=== PATIENT | female | born 1980 | race Caucasian/White ===

== ENCOUNTER → 2020-08-24 09:05 | Outpatient (BNVA) | payer OTHER, SELFPAY | PROVIDERS: PCP Physician Assistant; Visit Provider Internal Medicine Pulmonary Disease | DX: R91.8 Other nonspecific abnormal finding of lung field (principal); J45.20 Mild intermittent asthma, uncomplicated; Z79.899 Other long term (current) drug therapy; Z23 Encounter for immunization | CPT/HCPCS: 90686; 99202 ==

== ENCOUNTER 2020-09-03 12:28 | Outpatient (REF) | payer OTHER, SELFPAY | END 2020-09-03 12:29 | disposition home or self-care (01) | LOC: HO.LAB 12:28 | PROVIDERS: Visit Provider Internal Medicine | DX: Z20.828 Contact with and (suspected) exposure to other viral communicable diseases (principal) | CPT/HCPCS: C9803; U0003 ==

== ENCOUNTER 2020-09-14 08:05 | Outpatient (REF) | payer OTHER, SELFPAY ==
--- NOTE | 2020-09-14 08:11 | CT_ITS ---
EXAMINATION: CT CHEST WITHOUT CONTRAST CLINICAL INFORMATION: Nonspecific abnormal finding of lung field COMPARISON: Chest and left rib x-ray September 2018 TECHNIQUE: Multidetector volumetric CT imaging of the chest was done. Axial MIP volume rendering provided. Sagittal and coronal reformatted images were obtained. This CT examination was performed using dose optimization techniques as appropriate, variously including the following: *Automated exposure control *Adjustment of mA and/or kV according to patient size (this includes techniques or standardized protocols for targeted exams where dose is matched to indication/reason for exam; i.e. extremities or head) *Use of iterative reconstruction technique DLP: 187 mGy-cm FINDINGS: FIELD RADIO OPERATOR: Unremarkable LUNGS: There is a 3 mm calcified left upper lobe nodule axial image 151 series 5. There is a 2 mm peripheral or subpleural right upper lobe nodule adjacent to the minor fissure axial image 303 series 5 probably representing a subpleural lymph node. The lungs are otherwise clear. No evidence of emphysema, interstitial lung disease or bronchiectasis is seen. There is no endobronchial or endotracheal lesion. MEDIASTINUM: The mediastinum is normal. PLEURA: There is no pleural effusion. No pleural mass or thickening. AXILLA: No lymphadenopathy. UPPER ABDOMEN: Unremarkable. OSSEOUS STRUCTURES: There are mild degenerative changes of the spine. CT/CT chest wo con IMPRESSION: Small pulmonary nodules.
--- NOTE | 2020-09-14 17:38 | PFT_ITS ---
FLOWS: FEV1 of 82% of predicted at 2.69 L. FVC 78% of predicted at 3.09 L. FEV1 to FVC ratio of 0.87. No bronchodilator response. LUNG VOLUMES: Total lung capacity 74% of predicted at 4.11 L. Residual volume 64% of predicted at 1.15 L. Slow vital capacity 79% of predicted at 2.95 L. Expiratory reserve volume 40% of predicted at 0.53 L. Diffusion capacity is normal. IMPRESSION: Mild restrictive ventilatory defect with no bronchodilator response. Decreased expiratory reserve volume suggests extrathoracic restriction likely secondary to abdominal obesity. MD BERTHA Trammell/MODL / [id number]
== END 2020-09-14 08:06 | disposition home or self-care (01) ==
LOC: HO.CT 08:05
PROVIDERS: PCP Physician Assistant; Visit Provider Internal Medicine Pulmonary Disease
DX: J45.909 Unspecified asthma, uncomplicated (principal); R91.8 Other nonspecific abnormal finding of lung field
CPT/HCPCS: 71250; 94060; 94727; 94729

== ENCOUNTER → 2020-09-24 09:03 | Outpatient (BNVA) | payer OTHER, SELFPAY | PROVIDERS: PCP Physician Assistant; Referring Provider Physician Assistant; Visit Provider Internal Medicine Pulmonary Disease | DX: J45.909 Unspecified asthma, uncomplicated (principal); R91.8 Other nonspecific abnormal finding of lung field | CPT/HCPCS: 99212 ==

== ENCOUNTER 2020-11-18 09:49 | Outpatient (REF) | payer OTHER, SELFPAY ==
[2020-11-18 10:22] LABS: Hematocrit 35.1 % (37-47); Hemoglobin 11.7 g/dl (12.0-16.0); Mean Corpuscular HGB Conc 33.3 g/dl (31.0-35.0); Mean Corpuscular Hemoglobin 29.4 pg (27.0-33.0); Mean Corpuscular Volume 88.2 fL (80-98); Mean Platelet Volume 10.1 fL (9.4-12.3); Platelet Count 256 X10*3/uL (160-400); Red Blood Count 3.98 X10*6/uL (4.20-5.50); Red Cell Distribution Width 12.9 % (11.0-16.0); White Blood Count 7.1 X10*3/uL (4.8-10.8)
[2020-11-18 10:34] LABS: Estimated Average Glucose 105 mg/dL; Hemoglobin A1c % 5.3 %
[2020-11-18 10:52] LABS: Alanine Aminotransferase 17 U/L (0-31); Albumin Level 4.1 g/dL (3.5-5.0); Alkaline Phosphatase 81 U/L (39-117); Anion Gap 10 (12-20); Aspartate Amino Transferase 18 U/L (5-31); Bilirubin Total 0.5 mg/dL (0.0-1.0); Blood Urea Nitrogen 11 mg/dL (9-16); Calcium 9.5 mg/dL (8.4-10.2); Carbon Dioxide 28 mmol/L (22-29); Chloride 105 mmol/L (96-108); Cholesterol 138 mg/dL; Estimated Glomerular Filt Rate > 60; Glucose Fasting 102 mg/dL (60-99); HDL Cholesterol 67 mg/dL; LDL Cholesterol Calculated 60 mg/dl; Potassium 4.1 mmol/l (3.3-5.1); Sodium 139 mmol/L (135-145); Total Protein 7.1 g/dL (6.5-8.0); Triglycerides 59 mg/dL
[2020-11-18 11:05] LABS: TSH reflex Free T4 1.64 mIU/mL (0.32-4.0)
== END 2020-11-18 09:50 | disposition home or self-care (01) ==
LOC: HO.LAB 09:49
PROVIDERS: PCP Physician Assistant; Visit Provider Physician Assistant
DX: I10 Essential (primary) hypertension (principal); E66.01 Morbid (severe) obesity due to excess calories; Z68.41 Body mass index [BMI] 40.0-44.9, adult; Z13.1 Encounter for screening for diabetes mellitus; Z13.220 Encounter for screening for lipoid disorders
CPT/HCPCS: 36415; 80053; 80061; 83036; 84443; 85027

== ENCOUNTER → 2021-03-04 11:03 | Outpatient (BNVA) | payer OTHER, SELFPAY | PROVIDERS: PCP Physician Assistant; Visit Provider Orthopaedic Surgery | DX: M17.0 Bilateral primary osteoarthritis of knee (principal) | CPT/HCPCS: 20610; 99212; J1100 ==

== ENCOUNTER → 2021-03-31 07:55 | Outpatient (BNVA) | payer OTHER, SELFPAY | PROVIDERS: PCP Physician Assistant; Visit Provider Internal Medicine ==

== ENCOUNTER 2021-04-19 12:21 | Outpatient (REF) | payer OTHER, SELFPAY ==
--- NOTE | ~2021-04-19 | US_ITS ---
EXAMINATION: US THYROID CLINICAL INFORMATION: Nontoxic multinodular goiter. COMPARISON: CT soft tissue neck 06/26/2020. Thyroid ultrasound 04/14/2020 and 04/16/2019. Ultrasound-guided thyroid biopsies 12/27/2018. TECHNIQUE: Linear transducer grayscale and color Doppler examination with attention to the region of the thyroid. FINDINGS: SIZE: Measurements of the thyroid lobes and nodules are given in sagittal, anteroposterior and transverse dimensions respectively. Right Thyroid Lobe: 4.8 x 2.2 x 2.0 cm, volume 10.9 mL. Previously 5.0 x 2.1 x 2.2 cm, volume 12.1 mL. Parenchyma: The gland echotexture is homogeneous. Thyroid vascularity is normal. Left Thyroid Lobe: 4.9 x 1.9 x 1.9 cm, volume 9.1 mL. Previously 4.9 x 1.8 x 2.1 cm, volume 9.7 mL. Parenchyma: The gland echotexture is homogeneous. Thyroid vascularity is normal. Isthmus: 0.5 cm in maximum AP dimension. Previously 0.4 cm. Estimated total number of nodules greater than or equal to 1 cm: 1. Pantograph Setter nodules are described as follows: 1. Location: Right upper pole/mid pole. Size: 0.4 x 0.4 x 0.6 cm, volume 0.05 mL. Previously: 0.4 x 0.3 x 0.4 cm, volume 0.2 mL. Nodule characteristics: Composition: Spongiform (0). Echogenicity: 0 Shape: 0 Margins: 0 Echogenic Foci: 0 ACR TI-RADS total points: 0 ACR TI-RADS category: 1 Significant change in size (>/= 20% in 2 dimensions and minimal increase of 2 mm or 50% or greater increase in volume): Change in features: Change in ACR TI-RADS risk category: 2. Location: Right mid pole. Size: 1.0 x 0.8 x 1 cm, volume 0.41 mL. Previously: 1.0 x 0.7 x 0.8 cm, volume 0.26 mL. Nodule characteristics: Composition: Spongiform (0). Echogenicity: 0 Shape: 0 Margins: 0 Echogenic Foci: 0 ACR TI-RADS total points: 0 ACR TI-RADS category: 1 Significant change in size (>/= 20% in 2 dimensions and minimal increase of 2 mm or 50% or greater increase in volume): Change in features: Change in ACR TI-RADS risk category: 3. Location: Left lower pole. Size: 0.8 x 0.5 x 0.9 cm, volume 0.17 mL. Previously: 0.7 x 0.4 x 0.8 cm, volume 0.12 mL. Nodule characteristics: Composition: Spongiform (0). Echogenicity: 0 Shape: 0 Margins: 0 Echogenic Foci: 0 ACR TI-RADS total points: 0 ACR TI-RADS category: 1 The previously identified small nodules in the bilateral upper poles are not appreciated on the current exam. Significant change in size (>/= 20% in 2 dimensions and minimal increase of 2 mm or 50% or greater increase in volume): Change in features: Change in ACR TI-RADS risk category: NODES: No lymphadenopathy is seen in the tissue surrounding the thyroid gland. US/US thyroid IMPRESSION: Slightly enlarged thyroid gland with bilateral nodules. There are 2 small nodules in the bilateral upper pole that are not appreciated on the current exam. Otherwise pulmonary nodules are stable. ACR TI-RADS RECOMMENDATION REFERENCE: Ultrasound-guided fine-needle aspiration, followup ultrasound, no further follow up. * TR1 (0 point) and TR 2 (2 points): No FNA or follow up * TR3 (3 points): FNA if more than or equal to 2.5 cm in maximum dimension, followup ultrasound in 1, 3 and 5 years if 1.5 to 2.4 cm in maximum dimension. * TR4 (4-6 points): FNA if more than or equal to 1.5 cm in maximum dimension, followup ultrasound in 1, 2, 3 and 5 years if 1 to 1.4 cm in maximum dimension. * TR5 (more than or equal to 7 points): FNA if more than or equal to 1 cm in maximum dimension, followup ultrasound every year for 5 years if 0.5 to 0.9 cm in maximum dimension. * TR3, TR4 or TR5 nodules that are below the size threshold for follow up receive no follow up.
[2021-04-19 14:46] LABS: Free T4 (Free Thyroxine) 1.05 ng/dL (0.71-1.85); Thyroid Stimulating Hormone 0.62 uIU/mL (0.32-4.0); Vitamin D 25-OH Total 18.6 ng/mL (>30)
== END 2021-04-19 12:22 | disposition home or self-care (01) ==
LOC: HO.US 12:21
PROVIDERS: PCP Physician Assistant; Visit Provider Internal Medicine
DX: E04.2 Nontoxic multinodular goiter (principal); E55.9 Vitamin D deficiency, unspecified
CPT/HCPCS: 36415; 76536; 82306; 84439; 84443

== ENCOUNTER 2021-09-07 09:55 | Outpatient (REF) | payer OTHER, SELFPAY | END 2021-09-07 09:56 | disposition home or self-care (01) | LOC: HO.LAB 09:55 | PROVIDERS: Visit Provider Internal Medicine | DX: Z20.822 Contact with and (suspected) exposure to COVID-19 (principal) | CPT/HCPCS: C9803; U0003; U0005 ==

== ENCOUNTER 2021-09-30 10:12 | Outpatient (REF) | payer OTHER, SELFPAY ==
--- NOTE | ~2021-09-30 | CT_ITS ---
EXAMINATION: CT CHEST WITHOUT CONTRAST CLINICAL INFORMATION: Follow up lung nodules. COMPARISON: CT of the chest done on 09/14/2020. TECHNIQUE: Multidetector volumetric CT imaging of the chest was done. Axial MIP volume rendering provided. Sagittal and coronal reformatted images were obtained. This CT examination was performed using dose optimization techniques as appropriate, variously including the following: *Automated exposure control *Adjustment of mA and/or kV according to patient size (this includes techniques or standardized protocols for targeted exams where dose is matched to indication/reason for exam; i.e. extremities or head) *Use of iterative reconstruction technique DLP: 266.0 mGy-cm FINDINGS: SIDE LASTER: Unremarkable. LUNGS: Solitary sub-5 mm calcified Bety-fissural nodule is noted within the left lung apex (139:7), unchanged, likely represent calcified granuloma. Previously documented Bety-fissural nodule around the minor fissure within the right upper lobe of the lung is not reproduced in the current study. The remainder of the lung gabriel otherwise appear clear, unchanged. Specifically, no new abnormalities. The tracheobronchial tree is patent. MEDIASTINUM: The mediastinum is normal. PLEURA: There is no pleural effusion. No pleural mass or thickening. AXILLA: No lymphadenopathy. UPPER ABDOMEN: Remarkable for presence of 2 tiny adjacent punctate calcifications measuring approximately 1 to 2 mm seen within the inferior calyx of the left kidney (625:7) on the last image of the series. This was not included within the [id number] on the prior study, accordingly could not be compared. OSSEOUS STRUCTURES: Unremarkable. CT/CT chest wo con IMPRESSION: 1. Solitary sub-5 mm calcified Bety-fissural nodule is noted within the left lung apex, unchanged since prior study dated 09/14/2020, likely represent calcified granuloma. Previously documented Bety-fissural nodule around the minor fissure within the right upper lobe of the lung is not reproduced in the current study. No further follow-up is recommended. 2. 2 tiny punctate calcifications are present is extending between 1 to 2 mm within the inferior calyx of the left kidney, was not included within the [id number] on the prior study, most consistent with nonobstructing left renal calculi versus less likely possibility of vascular calcifications, not optimally included within the [id number]. Fleischner guidelines were followed.
== END 2021-09-30 10:13 | disposition home or self-care (01) ==
LOC: HO.CT 10:12
PROVIDERS: PCP Physician Assistant; Visit Provider Internal Medicine Pulmonary Disease
DX: R91.8 Other nonspecific abnormal finding of lung field (principal)
CPT/HCPCS: 71250

== ENCOUNTER → 2021-10-29 08:37 | Outpatient (BNVA) | payer OTHER, SELFPAY | PROVIDERS: PCP Physician Assistant; Visit Provider Internal Medicine Pulmonary Disease | DX: J45.909 Unspecified asthma, uncomplicated (principal); R91.8 Other nonspecific abnormal finding of lung field | CPT/HCPCS: 99212 ==

== ENCOUNTER → 2022-03-31 12:39 | Outpatient (BNVA) | payer OTHER, SELFPAY | PROVIDERS: PCP Physician Assistant; Visit Provider Orthopaedic Surgery | DX: M17.0 Bilateral primary osteoarthritis of knee (principal) | CPT/HCPCS: 20610; 99212; J1100 ==

== ENCOUNTER 2022-04-01 10:33 | Outpatient (REF) | payer OTHER, SELFPAY ==
[2022-04-01 11:09] LABS: Mean Corpuscular HGB Conc 34.3 g/dl (31.0-35.0); Mean Corpuscular Hemoglobin 29.3 pg (27.0-33.0); Mean Corpuscular Volume 85.4 fL (80.0-98.0); Mean Platelet Volume 10.2 fL (9.4-12.3); Platelet Count 267 X10*3/uL (160-400); Red Cell Distribution Width 12.8 % (11.0-16.0); White Blood Count 12.6 X10*3/uL (4.8-10.8)
[2022-04-01 11:17] LABS: Estimated Average Glucose 108 mg/dL; Hemoglobin A1c % 5.4 %
[2022-04-01 12:25] LABS: Microalbum/Creatinine Ratio Ur 11.2 ug/mg cr
[2022-04-01 12:38] LABS: Alanine Aminotransferase 17 U/L (0-31); Albumin Level 4.2 g/dL (3.5-5.0); Alkaline Phosphatase 90 U/L (39-117); Anion Gap 13 (12-20); Aspartate Amino Transferase 14 U/L (5-31); Bilirubin Total 0.5 mg/dL (0.0-1.0); Blood Urea Nitrogen 12 mg/dL (9-16); Calcium 9.9 mg/dL (8.4-10.2); Carbon Dioxide 23 mmol/L (22-29); Chloride 105 mmol/L (96-108); Cholesterol 146 mg/dL; Estimated Glomerular Filt Rate > 60; Glucose Fasting 110 mg/dL (60-99); HDL Cholesterol 62 mg/dL; LDL Cholesterol Calculated 76 mg/dl; Potassium 4.3 mmol/L (3.3-5.1); Sodium 137 mmol/L (135-145); Total Protein 7.6 g/dL (6.5-8.0); Triglycerides 43 mg/dL
[2022-04-01 12:59] LABS: Thyroid Stimulating Hormone 0.38 uIU/mL (0.32-4.0)
[2022-04-01 13:00] LABS: Free T4 (Free Thyroxine) 1.01 ng/dL (0.71-1.85)
== END 2022-04-01 10:34 | disposition home or self-care (01) ==
LOC: HO.LAB 10:33
PROVIDERS: PCP Physician Assistant; Visit Provider Internal Medicine
DX: I10 Essential (primary) hypertension (principal); E04.2 Nontoxic multinodular goiter; Z13.1 Encounter for screening for diabetes mellitus
CPT/HCPCS: 36415; 80053; 80061; 82043; 83036; 84439; 84443; 85027

== ENCOUNTER 2022-04-07 10:30 | Outpatient (REF) | payer OTHER, SELFPAY ==
[2022-04-07 12:10] LABS: Vitamin D 25-OH Total 19.5 ng/mL (>30)
== END 2022-04-07 10:31 | disposition home or self-care (01) ==
LOC: HO.LAB 10:30
PROVIDERS: PCP Physician Assistant; Visit Provider Internal Medicine
DX: E55.9 Vitamin D deficiency, unspecified (principal)
CPT/HCPCS: 36415; 82306

== ENCOUNTER 2022-04-20 13:18 | Outpatient (REF) | payer OTHER, SELFPAY ==
--- NOTE | ~2022-04-20 | US_ITS ---
EXAMINATION: US THYROID CLINICAL INFORMATION: Multinodular goiter. COMPARISON: Ultrasound thyroid 04/19/2021 and ultrasound thyroid soft tissues neck 04/14/2020. TECHNIQUE: Linear transducer grayscale and color Doppler examination with attention to the region of the thyroid. FINDINGS: SIZE: Measurements of the thyroid lobes and nodules are given in sagittal, anteroposterior and transverse dimensions respectively. Right Thyroid Lobe: 5.0 x 1.6 x 1.9 cm, volume 7.9 mL. Previously 0.8 x 2.2 x 2.0 cm, volume 10.9 mL. Parenchyma: The gland echotexture is homogeneous. Thyroid vascularity is normal. Left Thyroid Lobe: 5.6 x 1.5 x 2.1 cm, volume 9.2 mL. Previously 4.9 x 1.9 x 1.9 cm, volume 9.1 mL. Parenchyma: The gland echotexture is homogeneous. Thyroid vascularity is normal. Isthmus: 0.5 cm in maximum AP dimension. Previously 0.5 cm. Estimated total number of nodules greater than or equal to 1 cm: 2. Breeding Manager nodules are described as follows: 1. Location: Upper mid pole right. Size: 0.5 x 0.3 x 0.5 cm, volume 0.05 mL. Previously: 0.4 x 0.4 x 0.6 cm, volume 0.05 mL. Nodule characteristics: Composition: Solid (2). Echogenicity: Hypoechoic (2) Shape: Not taller than wide (0). Margins: Smooth (0). Echogenic Foci: None (0). ACR TI-RADS total points: 4 Previous: 0 ACR TI-RADS category: 4 Previous: 1 Significant change in size (>/= 20% in 2 dimensions and minimal increase of 2 mm or 50% or greater increase in volume): No Change in features: When comparing to prior imaging there are no changes in features of a hypoechoic nodule. Change in ACR TI-RADS risk category: Yes, however there appears to be no definite change in characteristics when comparing side by side to previous study which should have a similar risk category. 2. Location: Midpole right. Size: 1.3 x 1.0 x 1.4 cm, volume 0.9 mL. Previously: 1.0 x 0.8 x 1.0 cm, volume 0.4 mL. Nodule characteristics: Composition: Solid/almost completely solid (2). Echogenicity: Hypoechoic (2). Shape: Not taller than wide (0). Margins: Ill-defined (0). Echogenic Foci: None (0). ACR TI-RADS total points: 4 Previous: 0 ACR TI-RADS category: 4 Previous: 1 Significant change in size (>/= 20% in 2 dimensions and minimal increase of 2 mm or 50% or greater increase in volume): Yes Change in features: No Change in ACR TI-RADS risk category: No. When comparing to imaging of prior study there has not been any significant change in degree dating should have been similar. 3. Location: Lower pole left. Size: 0.9 x 0.7 x 1.1 cm, volume 0.4 mL. Previously: 0.8 x 0.5 x 0.9 cm, volume 0.2 mL. Nodule characteristics: Composition: Solid/almost completely solid (2). Echogenicity: Undetermined (1) Shape: Not taller than wide (0). Margins: Smooth (0). Echogenic Foci: None (0). ACR TI-RADS total points: 3 Previous: 0 ACR TI-RADS category: 3 Previous: 1 Significant change in size (>/= 20% in 2 dimensions and minimal increase of 2 mm or 50% or greater increase in volume): Yes Change in features: No Change in ACR TI-RADS risk category: No. The previous TI-RADS score appears to be incorrect. NODES: No lymphadenopathy is seen in the tissue surrounding the thyroid gland. US/US thyroid IMPRESSION: Right upper midpole and midpole nodules with TI-RADS category of 4 for which follow-up is recommended. ACR TI-RADS RECOMMENDATION REFERENCE: * TR3 (3 points): FNA if more than or equal to 2.5 cm in maximum dimension, followup ultrasound in 1, 3 and 5 years if 1.5 to 2.4 cm in maximum dimension. * TR4 (4-6 points): FNA if more than or equal to 1.5 cm in maximum dimension, followup ultrasound in 1, 2, 3 and 5 years if 1 to 1.4 cm in maximum dimension.
== END 2022-04-20 13:19 | disposition home or self-care (01) ==
LOC: HO.US 13:18
PROVIDERS: Visit Provider Internal Medicine
DX: E04.2 Nontoxic multinodular goiter (principal)
CPT/HCPCS: 76536

== ENCOUNTER → 2022-04-22 10:28 | Outpatient (BNVA) | payer OTHER, SELFPAY | PROVIDERS: PCP Physician Assistant; Visit Provider Internal Medicine Pulmonary Disease | DX: J45.40 Moderate persistent asthma, uncomplicated (principal) | CPT/HCPCS: 99212 ==

== ENCOUNTER 2022-06-08 13:55 | Outpatient (REF) | payer OTHER, SELFPAY | END 2022-06-08 13:56 | disposition home or self-care (01) | LOC: HO.SH 13:55 | PROVIDERS: Visit Provider Nurse Practitioner Family | DX: H90.3 Sensorineural hearing loss, bilateral (principal) | CPT/HCPCS: 92557; 92567; 92593; 92595; V5011; V5020; V5266 ==

== ENCOUNTER 2022-07-18 09:52 | Outpatient (REF) | payer OTHER, SELFPAY ==
--- NOTE | ~2022-07-18 | CT_ITS ---
EXAMINATION: CT SCAN OF THE TEMPORAL BONES CLINICAL INFORMATION: Bilateral sensorineural hearing loss. COMPARISON: None. TECHNIQUE: Multidetector helical imaging was performed in the axial plane with generation of oblique axial and coronal reformatted projections. This CT examination was performed using dose optimization techniques as appropriate, variously including the following: *Automated exposure control *Adjustment of mA and/or kV according to patient size (this includes techniques or standardized protocols for targeted exams where dose is matched to indication/reason for exam; i.e. extremities or head) *Use of iterative reconstruction technique DLP: 148 mGy-cm. FINDINGS: The external auditory canals and tympanic membranes are normal. The ossicular chains are intact bilaterally. No osseous erosion is seen. No soft tissue abnormality is seen in the middle ear cavities. The mastoid air cells are well aerated. The facial nerves follow a normal course bilaterally. There is questionable subtle bony demineralization anterior to both oval windows in the region of the fissula ante fenestrum. The remaining inner ear structures and internal auditory canals are normal. There is mild mucosal thickening in the right sphenoid sinus cavity. The nasopharyngeal soft tissues appear normal. The imaged portions of the brain demonstrate no acute abnormality. CT/CT internal auditory canals BI IMPRESSION: Question of potential subtle versus early bilateral fenestral otosclerosis. Clinically correlate.
== END 2022-07-18 09:53 | disposition home or self-care (01) ==
LOC: HO.CT 09:52
PROVIDERS: PCP Physician Assistant; Visit Provider Physician Assistant
DX: H90.3 Sensorineural hearing loss, bilateral (principal)
CPT/HCPCS: 70480

== ENCOUNTER → 2022-08-25 10:05 | Outpatient (BNVA) | payer OTHER, SELFPAY | PROVIDERS: PCP Physician Assistant; Visit Provider Internal Medicine Pulmonary Disease | DX: J45.40 Moderate persistent asthma, uncomplicated (principal) | CPT/HCPCS: 99212 ==

== ENCOUNTER 2022-10-05 15:24 | Outpatient (REF) | payer OTHER, SELFPAY | END 2022-10-05 15:25 | disposition home or self-care (01) | LOC: HO.HAP 15:24 | PROVIDERS: Visit Provider Physician Assistant | DX: Z46.1 Encounter for fitting and adjustment of hearing aid (principal); H90.3 Sensorineural hearing loss, bilateral | CPT/HCPCS: V5266 ==

== ENCOUNTER 2022-11-18 14:22 | Outpatient (REF) | payer OTHER, SELFPAY ==
[2022-11-18 15:21] LABS: Influenza A PCR NEGATIVE (Negative); Influenza B PCR NEGATIVE (Negative); Resp Syncy Virus RNA Qual PCR NEGATIVE (Negative); SARS COV2 PCR INHOUSE NEGATIVE (Negative)
== END 2022-11-18 14:23 | disposition home or self-care (01) ==
LOC: HO.LNP 14:22
PROVIDERS: Visit Provider Physician Assistant
DX: Z20.822 Contact with and (suspected) exposure to COVID-19 (principal); B34.9 Viral infection, unspecified
CPT/HCPCS: 0241U

== ENCOUNTER 2023-01-02 11:35 | Outpatient (REF) | payer OTHER, SELFPAY | END 2023-01-02 11:36 | disposition home or self-care (01) | LOC: HO.HAP 11:35 | PROVIDERS: Visit Provider Physician Assistant | DX: Z46.1 Encounter for fitting and adjustment of hearing aid (principal); H90.3 Sensorineural hearing loss, bilateral | CPT/HCPCS: V5266 ==

== ENCOUNTER 2023-03-09 11:36 | Outpatient (REF) | payer OTHER, SELFPAY | END 2023-03-09 11:37 | disposition home or self-care (01) | LOC: HO.HAP 11:36 | PROVIDERS: Visit Provider Physician Assistant | DX: Z46.1 Encounter for fitting and adjustment of hearing aid (principal); H90.3 Sensorineural hearing loss, bilateral | CPT/HCPCS: 92593; 99499 ==

== ENCOUNTER 2023-03-10 13:02 | Outpatient (REF) | payer OTHER, SELFPAY | END 2023-03-10 13:03 | disposition home or self-care (01) | LOC: HO.HAP 13:02 | PROVIDERS: Visit Provider Physician Assistant | DX: Z13.89 Encounter for screening for other disorder (principal) ==

== ENCOUNTER → 2023-03-13 13:27 | Outpatient (BNVA) | payer OTHER, SELFPAY | PROVIDERS: PCP Physician Assistant; Visit Provider Orthopaedic Surgery | DX: M17.0 Bilateral primary osteoarthritis of knee (principal) | CPT/HCPCS: 20610; 99212; J1100 ==

== ENCOUNTER 2023-03-22 09:49 | Outpatient (REF) | payer OTHER, SELFPAY ==
--- NOTE | ~2023-03-22 | US_ITS ---
EXAMINATION: US THYROID CLINICAL INFORMATION: Nontoxic multinodular goiter. COMPARISON: Ultrasound thyroid 04/20/2022 and 04/19/2021. CT soft tissue neck without contrast 06/26/2020. US-guided thyroid biopsy 12/27/2018. TECHNIQUE: Linear transducer grayscale and color Doppler examination with attention to the region of the thyroid. FINDINGS: SIZE: Measurements of the thyroid lobes and nodules are given in sagittal, anteroposterior and transverse dimensions respectively. Right Thyroid Lobe: 4.9 x 2.0 x 2.0 cm, volume 10.3 mL. Previously 5.0 x 1.6 x 1.9 cm, volume 7.9 mL. Parenchyma: The gland echotexture is slightly heterogeneous. Thyroid vascularity is normal. Left Thyroid Lobe: 4.9 x 2.1 x 2.1 cm, volume 11.3 mL. Previously 5.6 x 1.5 x 2.1 cm, volume 9.2 mL. Parenchyma: The gland echotexture is slightly heterogeneous Thyroid vascularity is normal. Isthmus: 0.5 cm in maximum AP dimension. Previously 0.5 cm. Estimated total number of nodules greater than or equal to 1 cm: 1. Auto Technician nodules are described as follows: 1. Location: Right mid lateral. Size: 0.5 x 0.4 x 0.6 cm, volume 0.06 mL. Previously: 0.5 x 0.3 x 0.5 cm, volume 0.05 mL. Nodule characteristics: Composition: Solid/almost completely solid (2). Echogenicity: Isoechoic (1). Shape: Not taller than wide (0). Margins: Ill-defined (0). Echogenic Foci: None (0). ACR TI-RADS total points: 3 Previous: 5 ACR TI-RADS category: 3 Previous: 4 Significant change in size (>/= 20% in 2 dimensions and minimal increase of 2 mm or 50% or greater increase in volume): Change in features: Change in ACR TI-RADS risk category: 2. Location: Right mid. Size: 0.8 x 0.6 x 0.8 cm, volume 0.2 mL. Previously: Not documented on the previous study. Nodule characteristics: Composition: Solid (2). Echogenicity: Hyperechoic (1). Shape: Not taller than wide (0). Margins: Ill-defined (0). Echogenic Foci: None (0). ACR TI-RADS total points: 3 ACR TI-RADS category: 3 3. Location: Right mid. Size: 0.7 x 0.5 x 0.6 cm, volume 0.1 mL. Previously: Not documented on the previous study. Nodule characteristics: Composition: Solid (2). Echogenicity: Hyperechoic (1). Shape: Not taller than wide (0). Margins: Ill-defined (0). Echogenic Foci: None (0). ACR TI-RADS total points: 3 ACR TI-RADS category: 3 Nodules 2 and 3 were previously measured as 1 nodule and probably not appreciably changed in size. 4. Location: Left superior. Size: 0.8 x 0.5 x 0.8 cm, volume 0.2 mL. Previously: New since the previous study. Nodule characteristics: Composition: Solid (2). Echogenicity: Hyperechoic (1). Shape: Not taller than wide (0). Margins: Ill-defined (0). Echogenic Foci: None (0). ACR TI-RADS total points: 3 ACR TI-RADS category: 3 5. Location: Left inferior. Size: 0.8 x 0.6 x 1.0 cm, volume 0.3 mL. Previously: 0.9 x 0.7 x 1.1 cm, volume 0.4 mL. Nodule characteristics: Composition: Solid/almost completely solid (2). Echogenicity: Hyperechoic (1). Shape: Not taller than wide (0). Margins: Smooth (0). Echogenic Foci: None (0). ACR TI-RADS total points: 3 Previous: 4 ACR TI-RADS category: 3 Previous: 4 Significant change in size (>/= 20% in 2 dimensions and minimal increase of 2 mm or 50% or greater increase in volume): Change in features: Change in ACR TI-RADS risk category: NODES: No lymphadenopathy is seen in the tissue surrounding the thyroid gland. US/US thyroid IMPRESSION: Slightly enlarged heterogeneous thyroid gland. Newly appreciated subcentimeter left thyroid nodule. According to TI RADS criteria, no ultrasound follow-up or fine-needle aspiration recommended. ACR TI-RADS RECOMMENDATION REFERENCE: Ultrasound-guided fine-needle aspiration, followup ultrasound, no further follow up. * TR1 (0 point) and TR2 (2 points): No FNA or follow up. * TR3 (3 points): FNA if more than or equal to 2.5 cm in maximum dimension, followup ultrasound in 1, 3 and 5 years if 1.5 to 2.4 cm in maximum dimension. * TR4 (4-6 points): FNA if more than or equal to 1.5 cm in maximum dimension, followup ultrasound in 1, 2, 3 and 5 years if 1 to 1.4 cm in maximum dimension. * TR5 (more than or equal to 7 points): FNA if more than or equal to 1 cm in maximum dimension, followup ultrasound every year for 5 years if 0.5 to 0.9 cm in maximum dimension. * TR3, TR4 or TR5 nodules that are below the size threshold for followup receive no follow up.
[2023-03-22 11:29] LABS: Free T4 (Free Thyroxine) 0.92 ng/dL (0.71-1.85); Thyroid Stimulating Hormone 0.79 uIU/mL (0.32-4.0); Vitamin D 25-OH Total 17.2 ng/mL (>30)
== END 2023-03-22 09:50 | disposition home or self-care (01) ==
LOC: HO.US 09:49
PROVIDERS: PCP Physician Assistant; Visit Provider Internal Medicine
DX: E04.2 Nontoxic multinodular goiter (principal); E55.9 Vitamin D deficiency, unspecified
CPT/HCPCS: 36415; 76536; 82306; 84439; 84443

== ENCOUNTER 2023-03-28 10:31 | Emergency (ER) | payer OTHER, SELFPAY ==
--- NOTE | ~2023-03-28 | XR_ITS ---
EXAMINATION: XR CHEST CLINICAL INFORMATION: Shortness of breath. COMPARISON: Chest radiographs dated 10/12/2018. TECHNIQUE: 2 views of the chest were obtained. FINDINGS: No significant abnormality is noted involving the heart, lungs, mediastinum, bony thorax or soft tissues. XR/XR chest 2V IMPRESSION: No acute cardiopulmonary process.
--- NOTE | ~2023-03-28 | XR_ITS ---
EXAMINATION: XR SHOULDER, LEFT CLINICAL INFORMATION: Left shoulder pain, limited range of motion. COMPARISON: Left shoulder radiographs dated 04/27/2017. TECHNIQUE: AP external rotation, Grashey, scapular Y, and axillary views of the left shoulder. FINDINGS: The bones and soft tissues are normal. No fracture. Glenohumeral and acromioclavicular alignment is anatomic with normal joint space. No abnormal soft tissue calcifications. XR/XR shoulder LT min 2V IMPRESSION: Unremarkable left shoulder.
[2023-03-28 11:08] VITALS: BP 151/78; PULSE 73; RESP 18; TEMP 36.4; O2SAT 100; BMI 39.8
--- NOTE | 2023-03-28 11:09 | ED_ITS ---
HPI - Extremity Injury (Upper) General Chief Complaint: Extremity Problem Stated Complaint: L shoulder pain no inj Time Seen by Provider: 03/28/23 16:11 Source: patient Mode of arrival: ambulatory Limitations: no limitations History of Present Illness HPI narrative: 42-year-old female presents emergency complaining of left shoulder pain patient states she woke up with pain she denies chest pain denies cough does have some associated shortness of breath denies nausea S MD complaint: injury to: left and shoulder Related Data Home Medications Medication Instructions Recorded Confirmed fluticasone furoate 50 inhalation 08/24/20 06/08/22 mcg/actuation blister powder for inhalation lamotrigine 150 mg tablet 150 mg PO DAILY 08/24/20 06/08/22 risperidone 3 mg tablet (Risperdal) 3 mg PO BEDTIME 08/24/20 06/08/22 clonazepam 0.5 mg tablet 0.5 mg PO DAILY PRN 11/18/20 06/08/22 eszopiclone 3 mg tablet (Lunesta) 3 mg PO BEDTIME 06/08/22 06/08/22 Previous Rx's Medication Instructions Recorded albuterol sulfate 90 mcg/actuation 2 puff inhalation Q4-6H PRN for 10/29/21 aerosol inhaler (ProAir HFA) wheezing 30 days #8.5 ea Symbicort 160 mcg-4.5 2 puff inhalation BID 30 days #1 ea 04/22/22 mcg/actuation HFA aerosol inhaler (budesonide-formoterol) cholecalciferol (vitamin D3) 25 25 mcg PO DAILY 30 days #30 caps 05/02/22 mcg (1,000 unit) capsule ipratropium 0.5 mg-albuterol 3 mg 3 ml inhalation Q4-6H PRN for 05/09/22 (2.5 mg base)/3 mL nebulization wheezing #810 mL soln amitriptyline 10 mg tablet 10 mg PO DAILY #90 tabs 06/08/22 sumatriptan succinate 100 mg tablet 100 mg PO Q2-4H PRN migraine 09/23/22 headache 30 days #9 tabs lisinopril 10 1 tab PO DAILY 90 days #90 tabs 11/17/22 mg-hydrochlorothiazide 12.5 mg tablet albuterol sulfate 90 mcg/actuation 2 puff inhalation Q6H PRN 11/18/22 aerosol inhaler shortness of breath or wheezing #6.7 grams azithromycin 250 mg tablet See Rx Instructions PO .COMPLEX #6 11/18/22 tabs benzonatate 100 mg capsule 100 mg PO BID PRN cough #14 caps 11/18/22 loratadine 10 mg tablet (Allergy 10 mg PO DAILY 90 days #90 tabs 02/11/23 Relief (loratadine)) cyclobenzaprine 10 mg tablet 10 mg PO TID PRN muscle spasm 30 03/15/23 days #90 tabs loperamide 2 mg capsule 2 mg PO Q8H #90 caps 03/15/23 cyclobenzaprine 5 mg tablet 5 mg PO BEDTIME PRN muscle spasm 03/28/23 #20 tabs prednisone 20 mg tablet 60 mg PO DAILY Asthma 5 days #15 03/28/23 tabs Allergies Allergy/AdvReac Type Severity Reaction Status Date / Time Penicillins [PENICILLINS] Allergy Mild HIVES Verified 11/18/22 10:14 metformin Allergy Unknown rash Verified 11/18/22 10:14 methocarbamol [Robaxin] Allergy Unknown Unknown Verified 11/18/22 10:14 nitrofurantoin Allergy Unknown RASH Verified 11/18/22 10:14 [From MACROBID] penicillin V Allergy Unknown hives Verified 11/18/22 10:14 Sulfa (Sulfonamide Allergy Unknown UNKNOWN Verified 11/18/22 10:14 Antibiotics) [SULFA (SULFONAMIDE ANTIBIOTICS)] sulfamethoxazole Allergy Unknown RASH Verified 11/18/22 10:14 [From BACTRIM] trimethoprim [From BACTRIM] Allergy Unknown RASH Verified 11/18/22 10:14 Review of Systems Review of Systems: Review of systems: General: Patient denies any fever chills recent illness or falls Musculoskeletal: Denies back pain or body aches or other injuries HEENT: denies headache, runny nose, ear pain Respiratory: denies shortness of breath, cough Cardiovascular: no chest pain or palpitations : denies dysuria, frequency Abdomen: no nausea vomiting denies abdominal pain Extremities: no swelling, left shoulder pain Skin: no diaphoresis Yes all other systems are reviewed and are negative PMFSH Past Medical History Medical History Multinodular thyroid Vitamin D deficiency Surgical History History of section History of tubal ligation Family History Family History Mother Asthma Diabetes High cholesterol CVD (cardiovascular disease) Father Diabetes Asthma High cholesterol CVD (cardiovascular disease) Sister Diabetes Sister Diabetes Maternal Grandmother Diabetes Breast cancer Ovarian cancer Maternal Grandfather Diabetes Maternal Aunt Breast cancer Ovarian cancer Paternal Grandfather No problems noted. 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 Cognitive needs: No Hearing needs: Yes Vision needs: Yes Physical Exam Vital Signs: Vital Signs: Last Vital Signs Temp 97.5 F 03/28/23 11:08 Pulse 73 03/28/23 11:08 Resp 18 03/28/23 11:08 BP 151/78 H 03/28/23 11:08 Pulse Ox 100 03/28/23 11:08 O2 Del Method Room Air 03/28/23 11:08 BMI result Body Mass Index 39.8 General: Well-appearing well-nourished in no signs of distress HEENT: Normocephalic atraumatic Neck: No signs of JVD, no masses no tenderness or lymphadenopathy Cardiovascular: Regular rate and rhythm Respiratory: Clear to auscultation bilaterally Abdomen: Soft nontender no masses rectal exam performed 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 Extremities: Normal pedal pulses no signs of edema Skin: Dry warm no rashes Back: No tenderness full ROM Course Course Course Narrative: RME - 42 yo female with history of HTN, obesity, asthma, who presents to the ER for evaluation of nontraumatic left sided shoulder pain that woke her from sleep at 5am. It radiates to the neck and right shoulder. She endorses SOB and dizzi ness but no chest pain. Tender left shoulder and cervical spine with limited ROM. VSS in triage. Plan: XR shoulder and chest, basic labs and EKG given sob and dizziness Medical Decision Making Medical Decision Making [facility] Narrative: With shortness of breath this could be ACS equivalent with the ice the shoulder pain EKG chest x-ray and labs were done while the patient was in triage which are all normal this appears to be musculoskeletal and I do think patient is safe to go home I will get a shot Toradol some prednisone and sent home with muscle relaxant and prednisone for the next few days. Differential Diagnosis FARHAD, SAMUEL left shoulder strain Admission/Observation Consideration of admission/observation: Escalation of care including admission/observation considered Lab Data [facility] Lab Attestation statement: I reviewed the patient's lab results. 03/28/23 11:23 03/28/23 11:23 Labs: Lab Results 03/28/23 03/28/23 Range/Units 11:23 11:23 WBC 6.5 (4.8-10.8) X10*3/uL RBC 4.14 L (4.20-5.50) X10*6/uL Hgb 11.7 L (12.0-16.0) g/dl Hct 35.0 L (37.0-47.0) % MCV 84.5 (80.0-98.0) fL MCH 28.3 (27.0-33.0) pg MCHC 33.4 (31.0-35.0) g/dl RDW 13.8 (11.0-16.0) % Plt Count 203 (160-400) X10*3/uL MPV 9.4 (9.4-12.3) fL Immature Gran % (Auto) 0.2 (0.0-0.4) % Neut % (Auto) 65.3 (45-73) % Lymph % (Auto) 25.7 (20-40) % Rusk % (Auto) 6.8 (2-11) % Eos % (Auto) 1.4 (0-4) % Baso % (Auto) 0.6 (0-2) % Lymph # (Auto) 1.7 (1.2-4.9) X10*3/uL R[place] # (Auto) 0.4 (0.1-1.2) X10*3/uL Eos # (Auto) 0.1 (0.0-0.4) X10*3/uL Baso # (Auto) 0.0 (0.0-0.2) X10*3/uL Abs Immat Gran (auto) 0.01 (0.00-0.03) X10*3/uL Absolute Neuts (auto) 4.2 (2.0-8.3) x10*3/uL Absolute Nucleated RBC 0.000 (0.0-0.012) X10*3/uL Nucleated RBC % (auto) 0.0 (0.0-0.2) /100WBC Sodium 136 (135-145) mmol/L Potassium 4.2 (3.3-5.1) mmol/L Chloride 105 (96-108) mmol/L Carbon Dioxide 24 (22-29) mmol/L Anion Gap 11 L (12-20) BUN 12 (9-16) mg/dL Creatinine 0.83 (0.5-1.4) mg/dL Estim Creat Clear Calc 117.2 Estimated GFR > 60 Random Glucose 110 (60-115) mg/dL Calcium 9.5 (8.4-10.2) mg/dL Magnesium 2.0 (1.6-2.6) mg/dL Total Bilirubin 0.6 (0.0-1.0) mg/dL Direct Bilirubin 0.2 (0.0-0.5) mg/dL AST 17 (5-31) U/L ALT 19 (0-31) U/L Alkaline Phosphatase 79 (39-117) U/L Total Protein 7.1 (6.5-8.0) g/dL Albumin 3.8 (3.5-5.0) g/dL Independent Interpretation I performed an independent interpretation of an: EKG and Plain X-Ray Interpretation: Rate 73 normal sinus rhythm normal intervals interpreted by me Discharge Plan Discharge Clinical Impression: Left shoulder strain, Strain of cervical portion of left trapezius muscle Patient Disposition: Home, Self-Care Instructions: Muscle Strain (ED), Muscle Strain (DC), Rotator Cuff Injury Exercises (DC) Additional Instructions: Please call follow-up with her doctor if you have any other concerns please do not hesitate to return to the emergency department. Prescriptions: New prednisone 20 mg tablet 60 mg PO DAILY 5 Days Qty: 15 0RF cyclobenzaprine 5 mg tablet 5 mg PO BEDTIME PRN (Reason: muscle spasm) Qty: 20 0RF No Action cholecalciferol (vitamin D3) 25 mcg (1,000 unit) capsule 25 mcg PO DAILY 30 Days Qty: 30 11RF ipratropium-albuterol 0.5 mg-3 mg(2.5 mg base)/3 mL solution for nebulization 3 ml inhalation Q4-6H PRN (Reason: for wheezing) Qty: 810 1RF sumatriptan succinate 100 mg tablet 100 mg PO Q2-4H PRN (Reason: migraine headache) 30 Days Qty: 9 3RF Rx Instructions: do not exceed 2 doses per 24 hrs lisinopril-hydrochlorothiazide 10-12.5 mg tablet 1 tab PO DAILY 90 Days Qty: 90 1RF loratadine [Allergy Relief (loratadine)] 10 mg tablet 10 mg PO DAILY 90 Days Qty: 90 2RF loperamide 2 mg capsule 2 mg PO Q8H Qty: 90 3RF cyclobenzaprine 10 mg tablet 10 mg PO TID PRN (Reason: muscle spasm) 30 Days Qty: 90 3RF clonazepam 0.5 mg tablet 0.5 mg PO DAILY PRN eszopiclone [Lunesta] 3 mg tablet 3 mg PO BEDTIME amitriptyline 10 mg tablet 10 mg PO DAILY Qty: 90 2RF azithromycin 250 mg tablet See Rx Instructions PO .COMPLEX Qty: 6 0RF Rx Instructions: For 250 mg dose pack: take 500 mg today (day 1), then 250 mg for 4 days (days 2-5) PO albuterol sulfate 90 mcg/actuation HFA aerosol inhaler 2 puff inhalation Q6H PRN (Reason: shortness of breath or wheezing) Qty: 6.7 0RF benzonatate 100 mg capsule 100 mg PO BID PRN (Reason: cough) Qty: 14 0RF risperidone [Risperdal] 3 mg tablet 3 mg PO BEDTIME lamotrigine 150 mg tablet 150 mg PO DAILY fluticasone furoate 50 mcg/actuation blister with device inhalation albuterol sulfate [ProAir HFA] 90 mcg/actuation HFA aerosol inhaler 2 puff inhalation Q4-6H PRN (Reason: for wheezing) 30 Days Qty: 8.5 6RF budesonide-formoterol [Symbicort] 160-4.5 mcg/actuation HFA aerosol inhaler 2 puff inhalation BID 30 Days Qty: 1 6RF
--- NOTE | 2023-03-28 11:13 | ECG_ITS ---
Test Reason : jeannie pain Blood Pressure : / mmHG Vent. Rate : 073 BPM Atrial Rate : 073 BPM P-R Int : 136 ms QRS Dur : 074 ms QT Int : 388 ms P-R-T Axes : 049 014 015 degrees QTc Int : 427 ms Normal sinus rhythm with sinus arrhythmia Normal ECG When compared with ECG of 12-OCT-2018 14:28, No significant change was found Referred By: Lizbet Boyce Electronically Signed By:Adarsh King
[2023-03-28 11:27] LABS: MANUAL DIFF FLAG NO
[2023-03-28 11:29] LABS: Basophils Percent Auto 0.6 % (0-2); Eosinophils Absolute Auto 0.1 X10*3/uL (0.0-0.4); Eosinophils Percent Auto 1.4 % (0-4); Hemoglobin 11.7 g/dl (12.0-16.0); Imm Gran Abs Auto 0.01 X10*3/uL (0.00-0.03); Imm Gran Pct Auto 0.2 % (0.0-0.4); Lymphocytes Absolute Auto 1.7 X10*3/uL (1.2-4.9); Lymphocytes Percent Auto 25.7 % (20-40); Mean Corpuscular HGB Conc 33.4 g/dl (31.0-35.0); Mean Corpuscular Hemoglobin 28.3 pg (27.0-33.0); Mean Corpuscular Volume 84.5 fL (80.0-98.0); Mean Platelet Volume 9.4 fL (9.4-12.3); Monocytes Absolute Auto 0.4 X10*3/uL (0.1-1.2); Monocytes Percent Auto 6.8 % (2-11); Neutrophils Absolute Auto 4.2 x10*3/uL (2.0-8.3); Neutrophils Percent Auto 65.3 % (45-73); Platelet Count 203 X10*3/uL (160-400); Red Blood Count 4.14 X10*6/uL (4.20-5.50); Red Cell Distribution Width 13.8 % (11.0-16.0); White Blood Count 6.5 X10*3/uL (4.8-10.8)
[2023-03-28 11:46] LABS: Alanine Aminotransferase 19 U/L (0-31); Albumin Level 3.8 g/dL (3.5-5.0); Alkaline Phosphatase 79 U/L (39-117); Anion Gap 11 (12-20); Aspartate Amino Transferase 17 U/L (5-31); Bilirubin Direct 0.2 mg/dL (0.0-0.5); Bilirubin Total 0.6 mg/dL (0.0-1.0); Blood Urea Nitrogen 12 mg/dL (9-16); Calcium 9.5 mg/dL (8.4-10.2); Carbon Dioxide 24 mmol/L (22-29); Chloride 105 mmol/L (96-108); Creatinine Clr Calc Pharmacy 117.2; Estimated Glomerular Filt Rate > 60; Glucose Random 110 mg/dL (60-115); Potassium 4.2 mmol/L (3.3-5.1); Sodium 136 mmol/L (135-145); Total Protein 7.1 g/dL (6.5-8.0)
[2023-03-28 16:14] VITALS: BP 151/65; PULSE 74; RESP 19; TEMP 36.9; O2SAT 100
[2023-03-28] MEDS: Ketorolac Tromethamine 30 MG/ML VIAL 15 MG IM (16:42)
[2023-03-28] MEDS: Acetaminophen 325 MG TABLET 650 MG PO (16:42)
[2023-03-28] MEDS: predniSONE 20 MG TABLET 60 MG PO (16:43)
== END 2023-03-28 16:50 | disposition home or self-care (01) ==
PROVIDERS: Physician Assistant; Emergency Provider Student in an Organized Health Care Education/Training Program; PCP Physician Assistant
DX: S46.912A Strain of unspecified muscle, fascia and tendon at shoulder and upper arm level, left arm, initial encounter (principal); S16.1XXA Strain of muscle, fascia and tendon at neck level, initial encounter; X50.1XXA Overexertion from prolonged static or awkward postures, initial encounter; Y93.84 Activity, sleeping; Y92.032 Bedroom in apartment as the place of occurrence of the external cause; Y99.9 Unspecified external cause status
CPT/HCPCS: 36415; 71046; 73030; 80048; 80076; 83735; 85025; 93005; 96372; 99283; 99284; J1885

== ENCOUNTER → 2023-04-10 07:27 | Outpatient (BNVA) | payer OTHER, SELFPAY | PROVIDERS: PCP Physician Assistant; Visit Provider Internal Medicine | DX: E04.2 Nontoxic multinodular goiter (principal); E55.9 Vitamin D deficiency, unspecified; E66.9 Obesity, unspecified; Z68.38 Body mass index [BMI] 38.0-38.9, adult | CPT/HCPCS: 99212 ==

== ENCOUNTER 2023-04-20 08:28 | Outpatient (REF) | payer OTHER, SELFPAY ==
[2023-04-20 09:10] LABS: Estimated Average Glucose 108 mg/dL; Hemoglobin A1c % 5.4 %
[2023-04-20 09:47] LABS: Alanine Aminotransferase 17 U/L (0-31); Albumin Level 3.8 g/dL (3.5-5.0); Alkaline Phosphatase 73 U/L (39-117); Anion Gap 11 (12-20); Aspartate Amino Transferase 14 U/L (5-31); Bilirubin Total 0.6 mg/dL (0.0-1.0); Blood Urea Nitrogen 13 mg/dL (9-16); Calcium 10.1 mg/dL (8.4-10.2); Carbon Dioxide 26 mmol/L (22-29); Chloride 105 mmol/L (96-108); Estimated Glomerular Filt Rate > 60; Glucose Fasting 108 mg/dL (60-99); Potassium 4.1 mmol/L (3.3-5.1); Sodium 138 mmol/L (135-145); Total Protein 7.1 g/dL (6.5-8.0)
[2023-04-20 09:57] LABS: Glucose Fasting 109 mg/dL (60-99)
[2023-04-20 10:47] LABS: Glucose 1 Hour 147 mg/dL
[2023-04-20 11:32] LABS: Glucose 2 Hour 129 mg/dL
== END 2023-04-20 08:29 | disposition home or self-care (01) ==
LOC: HO.LAB 08:28
PROVIDERS: PCP Physician Assistant; Visit Provider Internal Medicine
DX: E66.9 Obesity, unspecified (principal)
CPT/HCPCS: 36415; 80053; 83036

== ENCOUNTER 2023-04-20 13:54 | Outpatient (REF) | payer OTHER, SELFPAY | END 2023-04-20 13:55 | disposition home or self-care (01) | LOC: HO.HAP 13:54 | PROVIDERS: Visit Provider Physician Assistant | DX: Z46.1 Encounter for fitting and adjustment of hearing aid (principal); H90.3 Sensorineural hearing loss, bilateral | CPT/HCPCS: V5266 ==

== ENCOUNTER 2023-06-12 15:39 | Outpatient (AMB) | payer OTHER, SELFPAY ==
[2023-06-12 15:44] VITALS: BP 132/84; BMI 37.1
--- NOTE | 2023-06-12 15:44 | A.OFFPC_ITS ---
Vital Signs 06/12/23 15:44 Height 5 ft 8 in Weight 244 lb 2 oz BMI 37.1 BP 132/84 Blood Pressure Location Lt brachial Position Sitting Intake Visit Reasons: PE Intake Note: Patient is here today for a physical. Supervisor Forming And Tempering Required: No Accompanied by: Self / Same As Patient Allergies Penicillins [PENICILLINS] Allergy (Mild, Verified 06/12/23 15:55) HIVES metformin Allergy (Unknown, Verified 06/12/23 15:55) rash methocarbamol [Robaxin] Allergy (Unknown, Verified 06/12/23 15:55) Unknown nitrofurantoin [From MACROBID] Allergy (Unknown, Verified 06/12/23 15:55) RASH penicillin V Allergy (Unknown, Verified 06/12/23 15:55) hives Sulfa (Sulfonamide Antibiotics) [SULFA (SULFONAMIDE ANTIBIOTICS)] Allergy (Unknown, Verified 06/12/23 15:55) UNKNOWN sulfamethoxazole [From BACTRIM] Allergy (Unknown, Verified 06/12/23 15:55) RASH trimethoprim [From BACTRIM] Allergy (Unknown, Verified 06/12/23 15:55) RASH Medication List - Last Reconciled 06/12/23 by Brayan Damon PA-C albuterol sulfate 90 mcg/actuation 2 puffs inhalation Q6H PRN amitriptyline 10 mg PO DAILY cholecalciferol (vitamin D3) 25 mcg PO DAILY 30 days clonazepam 1 mg PO DAILY PRN cyclobenzaprine 10 mg PO TID PRN 30 days eszopiclone (Lunesta) 3 mg PO BEDTIME ipratropium-albuterol 0.5 mg-3 mg(2.5 mg base)/3 mL 3 mL inhalation Q4-6H PRN lamotrigine 150 mg PO DAILY lisinopril-hydrochlorothiazide 10-12.5 mg 1 tab PO DAILY 90 days loperamide 2 mg PO Q8H loratadine (Allergy Relief (loratadine)) 10 mg PO DAILY 90 days risperidone (Risperdal) 3 mg PO BEDTIME sertraline 100 mg PO DAILY sertraline 50 mg PO QAM sumatriptan succinate 100 mg PO Q2-4H PRN 30 days Tobacco use date assessed: 04/20/23 Dental Screening Dental Screen Date: 06/12/23 Did you have a dental visit in the last 12 months?: Yes Did you have a dental problem in the last 6 months where you did not have access to dental care?: No Was dental information given to patient?: Patient has dentist YULISSA BROWNLEE HPI Details Patient is a 42yea r-old female here today for routine annual physical..? Patient has a pas t medical history significant for hy pertension, obesit y, anxiety, bipola r disorder, major depressive disorde r, stable asthma, thyroid nodule. c oncerns--> report having left knee p ain, has been seei ng orthopedics and get cortison inje ction. She has no t been taking any anti arthritic med ication. No x-ray s have been done r ecently. Also rep orts having an epi sode left arm pain and numbness and was seen at the ER and given a Torad ol injection and f elt better. She s till has some left shoulder and trap ezius pain along w ith headaches. NARESH N: Will check her neck for any disc height loss. n. . . Obesity: Lindsey smith continues to hav e a BMI well over 30 -has been refer red to the weight management program ? .. ? Vit D Def/ thyroid nodules: Started on vitamin-D from her endocrinologis t. Most recent vi tamin-D level is 1 7 Patient reports she recently had a thyroid ultrasoun d showing a nodule was benign.? Has 1 year follow-up f or ultrasound .. Migraines:? Lindsey smith reports her migr aines are well con trolled with the u se of sumatriptan 100 mg as needed. ? .. ? H ypertension: Repor ts BP have been st able. Patient jay es any chest pain, shortness of delfino th or further head aches. She reports that lisinopril 1 0 mg have been kimi ping her blood pre ssure is 120s over 80s. ? . ? Asthma:? She i s followed by pulm onology,?she repor ts her asthma has been fairly well c ontrolled.? Has be en transition to S ymbicort by her pu lmonologist. ? Bipolar disorde r: Continues to be followed by Psych iatry, feels her m ood has been stabl e. Does report hav ing trouble sleepi ng though continue s with medication. .. 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 ? [facility] Medical History Multinodular thyroid Obesity Vitamin D deficiency Surgical History History of section History of tubal ligation Family History Mother Asthma Diabetes High cholesterol CVD (cardiovascular disease) Father Diabetes Asthma High cholesterol CVD (cardiovascular disease) Sister Diabetes Sister Diabetes Maternal Grandmother Diabetes Breast cancer Ovarian cancer Maternal Grandfather Diabetes Maternal Aunt Breast cancer Ovarian cancer Paternal Grandfather No problems noted. 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 1. Little interest or pleasure in doing things: not at all 2. Feeling down, depressed, or hopeless: not at all 3. Trouble falling or staying asleep, or sleeping too much: not at all 4. Feeling tired or having little energy: not at all 5. Poor appetite or overeating: not at all 6. Feeling bad about yourself - or that you are a failure or have let yourself or your family down: not at all 7. Trouble concentrating on things, such as reading the newspaper or watching television: not at all 8. Moving or speaking so slowly that other people could have noticed. Or the opposite - being so fidgety or restless that you have been moving around a lot more than usual: not at all 9. Thoughts that you would be better off or of hurting yourself in some way: not at all Total score: 0 Depression Screening Interpretation: Negative 55678 - PHQ-9 Billing: Yes Source: Developed by Drs. Jae Posadas, Jailene Singh, Jeramy Ro and colleagues, with an educational jeff from [employer]. Thrive Questionnaire Date Thrive assessed: 06/12/23 I am a: Patient What is your living situation today?: I have a steady place to live Within the past 12 months, did the food you bought not last and you didn't have the money to get more?: Never true Within the past 12 months, did you worry whether your food would run out before you got money to buy more?: Never true Do you have trouble paying for medicines?: No Do you have trouble getting transportation to medical appointments?: No Do you have trouble paying your heating and electricity bill?: No Do you have trouble taking care of your child, family member or friend?: No Do you have trouble with day-to-day activities such as bathing, preparing meals, shopping, managing finances, etc.?: No Are you currently unemployed and looking for a job?: No Are you interested in more education?: No Please select the resources that you would like help with: None Currently or been in a relationship where the following occur: no concerns reported AUDIT C Alcohol Use Questionnaire (AUDIT-C) 1. How often do you have a drink containing alcohol?: Monthly or less 2. How many drinks containing alcohol do you have on a typical day when you are drinking?: 1 or 2 3. How often do you have six or more drinks on one occasion?: Never Total Score: 1 SHERRI-7 AMB Questionnaire SHERRI-7 Date SHERRI - 7 assessed: 06/12/23 Feeling nervous, anxious, or on edge: 2 = More than half the days Not being able to stop or control worryin = More than half the days Worrying too much about different things: 3 = Nearly every day Trouble relaxin = Nearly every day Being so restless that it is hard to sit still: 2 = More than half the days Becoming easily annoyed or irritable: 3 = Nearly every day Feeling afraid as if something awful might happen: 2 = More than half the days Total SHERRI-7 score (0-4 normal; 5-9 mild; 10-14 moderate; 15-21 severe): 17 Source: Developed by Drs. Jae Posadas, Jailene Singh, Jeramy Ro and colleagues, with an educational jeff from [employer]. SHERRI-7 Assessment Billing SHERRI-7 Assessment Tool: SHERRI-7 Assessment 16207 ACT Questionnaire In the past 4 weeks, how much of the time did your asthma keep you from getting as much done at work, school or at home?: None of the time During the past 4 weeks, how often have you had shortness of breath?: 1-2 times a week During the past 4 weeks, how often did your asthma symptoms wake you up at night or earlier than usual in the morning?: Not at all During the past 4 weeks, how often have you had to use your rescue inhaler or nebulizer medication?: Not at all How would you rate your asthma control during the past 4 weeks?: Completely controlled ACT Interpretation: Negative Score: 24 Review of Systems Const Denies body aches, Denies chills, Denies excessive sweating, Denies fatigue, Denies fever(s) and Denies headache(s) Eyes Denies blurry vision ENT Denies dysphagia, Denies vertigo, Denies dizziness, Denies headache(s), Denies hearing loss and Denies tinnitus Card Denies chest pain, Denies chest pain with activity, Denies syncope, Denies irregular heart rhythm and Denies dyspnea Resp Denies chest congestion, Denies cough, Denies hemoptysis, Denies dyspnea and Denies wheezing GI Denies abdominal pain, Denies melena, Denies hematochezia, Denies coffee ground emesis, Denies dysphagia, Denies diarrhea, Reports loose stools, Denies nausea and Denies vomiting Denies urinary frequency, Denies dysuria, Denies urinary hesitancy and Denies urinary urgency Musc Details: + left knee pain Reports back pain, Reports arthralgias, Denies limited range of motion, Denies muscle cramps and Denies muscle weakness Skin/Breast Denies rash and Denies skin ulcer Neuro Denies Abnormal speech present, Denies confusion, Denies vertigo, Denies dizziness, Denies syncope, Denies headache(s), Denies memory loss and Denies seizure-like activity Psych Reports anxiety, Denies confusion, Denies depression, Denies memory loss, Reports panic attacks and Denies paranoia Endo Denies excessive sweating, Denies fatigue, Denies flushing, Denies polydipsia and Denies polyuria Aller/Immun Denies wheezing Physical exam (Primary Care) Vital Signs: Last Vital Signs BP 132/84 06/12/23 15:44 BMI result Body Mass Index 37.1 BMI Assessment/Plan discussion: High Tobacco/Smoking Status: Tobacco use Status Tobacco use date assessed 04/20/23 06/12/23 15:45 Patient Tobacco Use Status Never used Tobacco 06/12/23 15:45 e-Cigarette/Vaping Use Never Used 06/12/23 15:45 PHQ-9: PHQ-9 Score PHQ-9: Total score 0 06/12/23 15:53 Depression Screening Interpretation: Negative Thrive Assessment: Date of Thrive Assessment Date Thrive assessed 06/12/23 06/12/23 15:53 Currently or been in a relationship where the following occur: no concerns reported Const Other: Obese General: cooperative, comfortable, no acute distress, alert and awake; No confusion Orientation/consciousness: oriented to person, oriented to place, patient orient ed x3 and No confusion HENMT Head: Yes normocephalic Ears: external ears normal and TM's normal bilaterally Face and sinus: No sinus tenderness Mouth: Normal oral and palatal mucosa present and tongue normal Teeth and gingiva: dentition normal and gingiva normal Throat: Yes posterior oropharynx normal, Yes tonsils normal and Yes uvula midline Eyes Conjunctivae: conjunctivae normal Sclerae: sclerae normal Pupils: Equal, round and reactive pupils present EOM: EOMs intact bilaterally Direct Ophthalmoscopy: No no photophobia Neck Neck: Yes no lymphadenopathy, No tender and Yes no JVD Thyroid: Thyroid normal Carotids: no bruits Chest Chest palpation & inspection: no tenderness Resp Effort & Inspection: normal respiratory effort, no audible wheezes, not labored and no stridor Auscultation: no crackles, no rales, no rhonchi and no wheezes Cardio Jugular venous distension: no JVD Rate: regular rate, not bradycardic and not tachycardic Rhythm: regular rhythm Bruits: no carotid bruits Peripheral pulses: Peripheral pulses 2+ throughout GI Inspection: Yes normal to inspection, No abdominal wall ecchymosis and No visible herniation Palpation (GI): Soft to palpation, nontender, no guarding, not rigid and No hepatosplenomegaly present Auscultation: normoactive bowel sounds General: Yes no CVA tenderness Back/Spine/Pelvis Back: no CVA tenderness and No back tenderness Cervical Spine: cervical ROM normal Thoracic/Lumbar Spine: thoracic and lumbar spine normal to inspection, straight leg raise negative bilaterally, No thoraco-lumbar ROM limited and No lumbar spinal tenderness Skin Lesions: no lesions Rashes: no rashes Wounds: no wounds Neuro General: oriented to person, oriented to place, patient oriented x3, CN's II-XI intact bilaterally and No confusion Cranial nerves: Yes Equal, round and reactive pupils present and Yes Normal accommodation reflex present Cognition (Neuro): normal cognition Speech: No Abnormal speech present Gait exam (Neuro): Normal gait present Motor exam (neuro): 5/5 motor strength present throughout Extrem Right upper extremity: full ROM; no cyanosis Left upper extremity: full ROM; no cyanosis Right lower extremity: no edema Left lower extremity: no edema Psych Appearance: grossly normal Mental Status: mental status grossly normal Affect: normal affect Attitude: cooperative Thought process: Normal thought process present Assessment and Plan Assessment & Plan (1) Annual physical exam: Code(s): Z00.00 - Encounter for general adult medical examination without abnormal findings (2) Bilateral primary osteoarthritis of knee: Code(s): M17.0 - Bilateral primary osteoarthritis of knee Plan: As per HPI patient reports worsening left knee pain. She is followed by Orthopedic and gets cortisone injections that temporarily do help her pain. She does not take any anti thready medication. She has been working on trying to reduce her weight has she feels this will help. She is interested in physical therapy (3) Obese: Code(s): E66.9 - Obesity, unspecified Qualifiers: Obesity type: due to excess calories Obesity classification: adult class 3 (BMI >= 40) Serious obesity comorbidity presence: without serious co morbidity Body mass index: BMI 40.0-44.9 Qualified Code(s): E66.01 - Morbid (severe) obesity due to excess calories; Z68.41 - Body mass index [BMI]40.0- 44.9, adult Plan: Patient does understand her BMI is well above 30 will continue working on being more physically active and adapt to better eating habits to reduce her weight. She will be starting with the [facility] weight management program in near future. (4) Asthma: Code(s): J45.909 - Unspecified asthma, uncomplicated Qualifiers: Asthma severity: moderate Asthma persistence: persistent Asthma complication type: uncomplicated Qualified Code(s): J45.40 - Moderate persistent asthma, uncomplicated Plan: Patient reports her asthma has been well controlled with p.r.n. use of albuterol inhaler. She denies any nighttime awakenings are recent asthma exacerbations. She is bothered by her allergies and would like a new allergy medication. (5) HTN (hypertension): Code(s): I10 - Essential (primary) hypertension Qualifiers: Hypertension type: primary hypertension Qualified Code(s): I10 - Essent ial (primary) hypertension Plan: Patient's blood pressure acceptable today in office. Will continue her current dose of lisinopril with goal blood pressure to remain below 140/90 (6) Allergic conjunctivitis and rhinitis: Code(s): H10.10 - Acute atopic conjunctivitis, unspecified eye; J30.9 - Allergic rhinitis, unspecified Qualifiers: Laterality: bilateral Qualified Code(s): H10.13 - Acute atopic conjunctivitis, bilateral; J30.9 - Allergic rhinitis, unspecified Plan: Patient continues to suffer with allergy symptoms to which she uses loratadine for though feels is not effective. She would like to change her antihistamine therapy for better response. Will transition to singular use (7) Impaired glucose metabolism: Code(s): R73.09 - Other abnormal glucose Plan: Patient's most recent fasting blood sugar at 108. Will check an A1c. She will continue working on low carbohydrate diet and weight reduction. (8) SHERRI (generalized anxiety disorder): Code(s): F41.1 - Generalized anxiety disorder Plan: Patient's SHERRI-7 score positive for moderate to severe anxiety which has been an existing condition for her. She continues to follow a psychiatrist and a mental health therapist. She does report some personal issues going on at home that are causing more anxiety. Continues on fairly high dose of SSRI therapy. She does use Risperdal on a daily basis along with clonazepam on a p.r.n. basis for anxiety. Orders: Orders PT Evaluation and Treatment Today M25.562 - Pain in left knee XR knee LT 4V Today M17.0 - Bilateral primary osteoarthritis of knee XR cervical spine 3V Today M47.812 - Spondylosis without myelopathy or radiculopathy, cervical region Comprehensive [place]. Panel Fast Today I10 - Essential (primary) hypertension Microalbumin, Random (w Creat) Today I10 - Essential (primary) hypertension Hemoglobin A1c Today R73.09 - Other abnormal glucose Medications: New montelukast 10 mg PO BEDTIME 90 days 90 tabs 1RF H10.10 - Acute atopic conjunctivitis, unspecified eye, J30.9 - Allergic rhinitis, unspecified meloxicam 15 mg PO DAILY 30 days 30 tabs 1RF M17.0 - Bilateral primary osteoarthritis of knee Refilled amitriptyline 10 mg PO DAILY 90 tabs 2RF H90.3 - Sensorineural hearing loss, bilateral loperamide 2 mg PO Q8H 90 caps 3RF Discontinued loratadine (Allergy Relief (loratadine)) Discontinued Reason: Doctor's Order 10 mg PO DAILY 90 days 90 tabs 2RF H10.10 - Acute atopic conjunctivitis, unspecified eye, J30.9 - Allergic rhinitis, unspecified Coding Level of Care Code Est Pt Prev Care 40-64y(03651) Diagnoses Annual physical exam Z00.00 Bilateral primary osteoarthritis of knee M17.0 Obese E66.01; Z68.41 Obesity type: due to excess calories Obesity classification: adult class 3 (BMI >= 40) Serious obesity comorbidity presence: without serious comorbidity Body mass index: BMI 40.0-44.9 Asthma J45.40 Asthma severity: moderate Asthma persistence: persistent Asthma complication type: uncomplicated HTN (hypertension) I10 Hypertension type: primary hypertension Allergic conjunctivitis and rhinitis H10.13; J30.9 Laterality: bilateral Impaired glucose metabolism R73.09 SHERRI (generalized anxiety disorder) F41.1 Additional Codes SHERRI-7 Assessment Billing - SHERRI-7 Assessment Tool: SHERRI-7 Assessment 39169 ([id number])
== END 2023-06-12 16:27 | disposition home or self-care (01) ==
PROVIDERS: Visit Provider Physician Assistant
DX: Z00.00 Encounter for general adult medical examination without abnormal findings (principal); E66.01 Morbid (severe) obesity due to excess calories; Z68.41 Body mass index [BMI] 40.0-44.9, adult; J45.40 Moderate persistent asthma, uncomplicated; I10 Essential (primary) hypertension; M17.0 Bilateral primary osteoarthritis of knee; H10.13 Acute atopic conjunctivitis, bilateral; J30.9 Allergic rhinitis, unspecified; R73.09 Other abnormal glucose; F41.1 Generalized anxiety disorder
CPT/HCPCS: 99396

== ENCOUNTER 2023-07-18 08:49 | Outpatient (REF) | payer OTHER, SELFPAY | END 2023-07-18 08:50 | disposition home or self-care (01) | LOC: HO.HAP 08:49 | PROVIDERS: Visit Provider Physician Assistant | DX: Z13.89 Encounter for screening for other disorder (principal) ==

== ENCOUNTER 2023-07-20 11:41 | Outpatient (REF) | payer SELFPAY | END 2023-07-20 11:42 | disposition home or self-care (01) | LOC: HO.HAP 11:41 | PROVIDERS: Visit Provider Physician Assistant | DX: Z13.89 Encounter for screening for other disorder (principal) ==

== ENCOUNTER 2023-08-08 14:31 | Outpatient (REF) | payer SELFPAY ==
--- NOTE | 2023-08-08 15:19 | MHC.AU.HA3 ---
Hearing Instrument Follow-Up- Binaural Date of Visit: 08/08/23 Right Ear: Horace, Model, Color, Serial Number: Tisha Churchill M [id number] SN: [id number] Color: [employer] S[employer] Manager Repair Warranty: 01/06/2022 Energy And Sustainability Manager Loss and Damage Warranty: 01/06/2022 Battery Size: 312 Preparole Counseling Aide/Slim Tube: 0S Earmold/Dome/CShell/SlimTip:Slim tip Type of Wax Guard: CeruShield Dispensed By: [facility] Date of Fittin10/24/2018 Left Ear: Horace, Model, Color, Serial Number: Jesica Churchill M [id number] SN: [id number] Color: [employer] Manager Repair Warranty: 01/06/2022 Energy And Sustainability Manager Loss and Damage Warranty: 01/06/2022 Battery Size: 312 Preparole Counseling Aide/Slim Tube: 0S Earmold/Dome/CShell/SlimTip: Slim Tip Type of Wax Guard: CeruShield Dispensed By: [facility] Date of Fittin10/24/2018 Follow-Up Summary: Rashmi reported that since her hearing aids were dropped off last, her ear molds do not fit as securely in her ears. They continually work their way out of her ears over the course of the day and she has to constantly push them back in. Prior to the last drop off, she did not have any issues. Unsure exact cause; however, will make new ear molds as current pair are over four years old. Impressions taken, bilaterally, without incident - Sent to [employer]. Rashmi opted to stay with the same style and material. Recommendations: Patient will be contacted when materials have arrived. Diagnosis Code(s): Primary Diagnosis: H90.6 Mixed Hearing Loss, Bilateral Signature: Provider: Lila Dubose, [facility]
== END 2023-08-08 14:32 | disposition home or self-care (01) ==
LOC: HO.HAP 14:31
PROVIDERS: Visit Provider Physician Assistant
DX: Z13.89 Encounter for screening for other disorder (principal)

== ENCOUNTER 2023-08-09 10:34 | Outpatient (REF) | payer OTHER, SELFPAY ==
[2023-08-09 11:32] LABS: Hematocrit 35.8 % (37.0-47.0); Hemoglobin 11.9 g/dl (12.0-16.0); Mean Corpuscular HGB Conc 33.2 g/dl (31.0-35.0); Mean Corpuscular Hemoglobin 28.7 pg (27.0-33.0); Mean Corpuscular Volume 86.5 fL (80.0-98.0); Mean Platelet Volume 10.6 fL (9.4-12.3); Platelet Count 275 X10*3/uL (160-400); Red Blood Count 4.14 X10*6/uL (4.20-5.50); Red Cell Distribution Width 13.2 % (11.0-16.0); White Blood Count 8.6 X10*3/uL (4.8-10.8)
[2023-08-09 12:08] LABS: Anion Gap 13 (12-20); Blood Urea Nitrogen 18 mg/dL (9-16); Calcium 10.6 mg/dL (8.4-10.2); Carbon Dioxide 26 mmol/L (22-29); Chloride 105 mmol/L (96-108); Estimated Glomerular Filt Rate > 60; Glucose Random 96 mg/dL (60-115); Potassium 3.7 mmol/L (3.3-5.1); Sodium 140 mmol/L (135-145)
[2023-08-09 12:12] LABS: Appearance Urine Clear; Color Urine Yellow; Glucose Urine UA Negative (Negative); Leukocyte Esterase Urine Negative (Negative); Nitrite Urine Negative (Negative); Urine Blood Negative (Negative); Urine Ketones Negative (Negative); Urine Protein Negative (Neg-Trace)
[2023-08-09 12:22] LABS: HCG Quantitative < 2 mIU/mL
== END 2023-08-09 10:35 | disposition home or self-care (01) ==
LOC: HO.LAB 10:34
PROVIDERS: PCP Physician Assistant; Visit Provider Physician Assistant
DX: N91.2 Amenorrhea, unspecified (principal); D64.9 Anemia, unspecified; R30.0 Dysuria; R42 Dizziness and giddiness
CPT/HCPCS: 36415; 80048; 81003; 84702; 85027

== ENCOUNTER 2023-09-07 08:48 | Outpatient (REF) | payer OTHER, SELFPAY ==
--- NOTE | 2023-09-07 09:19 | MHC.AU.HA3 ---
Hearing Instrument Follow-Up- Binaural Date of Visit: 09/07/23 Right Ear: Horace, Model, Color, Serial Number: Tisha Márquez [id number] SN: [id number] Color: [employer] Well Puller Repair Warranty: 01/06/2022 Well Puller Loss and Damage Warranty: 01/06/2022 Battery Size: 312 Covered Buckle Assembler/Slim Tube: 0S Earmold/Dome/CShell/SlimTip:Slim tip silicone SN: [id number] Marcella: 11/13/2023 Old SN: [id number] Type of Wax Guard: CeruShield Dispensed By: [facility] Date of Fittin10/24/2018 Left Ear: Horace, Model, Color, Serial Number: Jesica Márquez [id number] SN: [id number] Color: [employer] Well Puller Repair Warranty: 01/06/2022 Well Puller Loss and Damage Warranty: 01/06/2022 Battery Size: 312 Covered Buckle Assembler/Slim Tube: 0S Earmold/Dome/CShell/SlimTip: Slim Tip Silicone SN: [id number] Marcella: 11/13/2023 Etelvina SN: [id number] Type of Wax Guard: CeruShield Dispensed By: [facility] Date of Fittin10/24/2018 Follow-Up Summary: Fit new slim tip ear molds. Reran feedback analyzer. Had some difficulty inserting fully due to length of nails; however, once securely fit in her ears, Rashmi reported they were much more comfortable than her old ear molds. No feedback noted in office. Rashmi has her old slim tips to keep as back up. She will call if issues with comfort or fit arise. Recommendations: Hearing instrument follow-up or maintenance as needed. Please contact our clinic with any questions or concerns. Diagnosis Code(s): Primary Diagnosis: H90.6 Mixed Hearing Loss, Bilateral Signature: Provider: Lila Dubose, [facility]
== END 2023-09-07 08:49 | disposition home or self-care (01) ==
LOC: HO.HAP 08:48
PROVIDERS: Visit Provider Physician Assistant
DX: Z46.1 Encounter for fitting and adjustment of hearing aid (principal); H90.6 Mixed conductive and sensorineural hearing loss, bilateral
CPT/HCPCS: V5264

== ENCOUNTER 2023-09-08 10:52 | Outpatient (REF) | payer OTHER, SELFPAY | END 2023-09-08 10:53 | disposition home or self-care (01) | LOC: HO.MAMMO 10:52 | PROVIDERS: PCP Physician Assistant; Visit Provider Physician Assistant | DX: Z12.31 Encounter for screening mammogram for malignant neoplasm of breast (principal) | CPT/HCPCS: 77063; 77067 ==

== ENCOUNTER → 2023-09-08 11:00 | Outpatient (BNV) | payer OTHER, SELFPAY | PROVIDERS: PCP Physician Assistant; Visit Provider Radiology Diagnostic Radiology | DX: Z12.31 Encounter for screening mammogram for malignant neoplasm of breast (principal) | CPT/HCPCS: 77063; 77067 ==

== ENCOUNTER 2023-11-21 13:30 | Outpatient (REF) | payer OTHER, SELFPAY | END 2023-11-21 13:31 | disposition home or self-care (01) | LOC: HO.HAP 13:30 | PROVIDERS: Visit Provider Physician Assistant | DX: Z46.1 Encounter for fitting and adjustment of hearing aid (principal); H90.6 Mixed conductive and sensorineural hearing loss, bilateral | CPT/HCPCS: V5266 ==

== ENCOUNTER 2023-11-27 13:30 | Outpatient (AMB) | payer OTHER, SELFPAY ==
--- NOTE | 2023-11-27 13:44 | A.OFFVIS_ITS ---
Intake Intake Visit Reasons: Bilateral Knee OA - Injections last 03/13/23 Intake Note: Rashmi is a 42 year old female who presents today with complaints of bilateral knee pain . Bilateral Knees Injected 03/13/23. Patient reports good relief with the injections and would like to repeat. Allergies Penicillins [PENICILLINS] Allergy (Mild, Verified 06/12/23 15:55) HIVES metformin Allergy (Unknown, Verified 06/12/23 15:55) rash methocarbamol [Robaxin] Allergy (Unknown, Verified 06/12/23 15:55) Unknown nitrofurantoin [From MACROBID] Allergy (Unknown, Verified 06/12/23 15:55) RASH penicillin V Allergy (Unknown, Verified 06/12/23 15:55) hives Sulfa (Sulfonamide Antibiotics) [SULFA (SULFONAMIDE ANTIBIOTICS)] Allergy (Unknown, Verified 06/12/23 15:55) UNKNOWN sulfamethoxazole [From BACTRIM] Allergy (Unknown, Verified 06/12/23 15:55) RASH trimethoprim [From BACTRIM] Allergy (Unknown, Verified 06/12/23 15:55) RASH HPI Bilateral Knee OA - Injections last 03/13/23 HPI Details Rashmi is a 43 year old woman with bilateral knee OA. She has a Hx of good relief from steroid injections in the past, and would like repeat injections done today. Her last injection was bilaterally on 03/13/23. [facility] Medical History Multinodular thyroid Obesity Vitamin D deficiency Surgical History History of section History of tubal ligation Family History Mother Asthma Diabetes High cholesterol CVD (cardiovascular disease) Father Diabetes Asthma High cholesterol CVD (cardiovascular disease) Sister Diabetes Sister Diabetes Maternal Grandmother Diabetes Breast cancer Ovarian cancer Maternal Grandfather Diabetes Maternal Aunt Breast cancer Ovarian cancer Paternal Grandfather No problems noted. 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 Cognitive needs: No Hearing needs: Yes Vision needs: Yes Review of Systems Const All systems reviewed & are unremarkable except as noted in HPI and below Physical Exam Const General: no acute distress, alert and awake Orientation/consciousness: patient oriented x3 HEENT Head: Yes normocephalic and Yes atraumatic Eyes EOM: EOMs intact bilaterally Resp Effort & Inspection: normal respiratory effort and able to speak in complete sentences Cardio Jugular venous distension: no JVD Skin General skin exam: turgor normal Rashes: no rashes Neuro General: patient oriented x3 Extrem Other: TTP medial compartment bilaterally Full ROM No effusion Psych Appearance: grossly normal Affect: normal affect Attitude: cooperative Office Procedures Joint Injection/Drain Joint Injection/Drain Details: Injected 1 mL of Decadron and 3 mL 1% lidocaine and 3 mL of 0.25% Marcaine. Site was prepped using aseptic technique. Patient tolerated the procedure well. Primary Site: right knee Secondary Site: left knee Approach Used: anterolateral Coding - Large joint 23346 - Glenohumeral/Tronchanteric Bursa/Intraarticular Procedure code (CPT) selection complete Assessment & Plan Assessment & Plan (1) Bilateral primary osteoarthritis of knee: Code(s): M17.0 - Bilateral primary osteoarthritis of knee Plan: PF OA bilaterally Injections every 9-12 months but I encouraged her to avoid further injections of cortisone if possible. Injected bilateral knees today Plan Prepared for Dudley Kim MD by [facility] section director, on 11/27/23 at 2:03 PM, EST. Coding Level of Care Code Est Pt Level 3 (14085) Diagnoses Bilateral primary osteoarthritis of knee M17.0 CPT Codes Coding - 13539 Large joint: 14000 - Large joint ([id number]) Coding - Joint 7: 24204 - Glenohumeral/Tronchanteric Bursa/Intraarticular ([id number])
== END 2023-11-27 14:21 | disposition home or self-care (01) ==
PROVIDERS: PCP Physician Assistant; Visit Provider Orthopaedic Surgery
DX: M17.0 Bilateral primary osteoarthritis of knee (principal)
CPT/HCPCS: 20610; 99213

== ENCOUNTER → 2023-11-27 13:30 | Outpatient (BNVA) | payer OTHER, SELFPAY | PROVIDERS: PCP Physician Assistant; Visit Provider Orthopaedic Surgery | DX: M17.0 Bilateral primary osteoarthritis of knee (principal) | CPT/HCPCS: 20610; 99212; J0665; J1100 ==

== ENCOUNTER 2023-12-13 15:11 | Outpatient (AMB) | payer OTHER, SELFPAY ==
--- NOTE | 2023-12-13 15:21 | A.OFFPC_ITS ---
Vital Signs 12/13/23 15:26 Height 5 ft 8 in Weight 252 lb 2 oz BMI 38.3 BP 124/76 Blood Pressure Location Lt brachial Position Sitting Pulse 80 Pulse Source Pulse Oximeter Pulse Oximetry (%) 97 Oxygen Delivery Method Room Air Intake Visit Reasons: f/u HTN- weight check. 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 Required: No Accompanied by: Self / Same As Patient Allergies Penicillins [PENICILLINS] Allergy (Mild, Verified 12/13/23 15:37) HIVES metformin Allergy (Unknown, Verified 12/13/23 15:37) rash methocarbamol [Robaxin] Allergy (Unknown, Verified 12/13/23 15:37) Unknown nitrofurantoin [From MACROBID] Allergy (Unknown, Verified 12/13/23 15:37) RASH penicillin V Allergy (Unknown, Verified 12/13/23 15:37) hives Sulfa (Sulfonamide Antibiotics) [SULFA (SULFONAMIDE ANTIBIOTICS)] Allergy (Unknown, Verified 12/13/23 15:37) UNKNOWN sulfamethoxazole [From BACTRIM] Allergy (Unknown, Verified 12/13/23 15:37) RASH trimethoprim [From BACTRIM] Allergy (Unknown, Verified 12/13/23 15:37) RASH Medication List - Last Reconciled 12/13/23 by Brayan Damon PA-C albuterol sulfate 90 mcg/actuation 2 puffs inhalation Q6H PRN amitriptyline 10 mg PO DAILY cholecalciferol (vitamin D3) (Vitamin D3) 25 mcg PO DAILY clonazepam 1 mg PO DAILY PRN cyclobenzaprine 10 mg PO TID PRN 30 days eszopiclone (Lunesta) 3 mg PO BEDTIME ipratropium-albuterol 0.5 mg-3 mg(2.5 mg base)/3 mL 3 mL inhalation Q4-6H PRN lamotrigine 150 mg PO DAILY lisinopril-hydrochlorothiazide 10-12.5 mg 1 tab PO DAILY 90 days loperamide 2 mg PO Q8H meloxicam 15 mg PO DAILY 30 days montelukast 10 mg PO BEDTIME 90 days risperidone (Risperdal) 3 mg PO BEDTIME sertraline 100 mg PO DAILY sertraline 50 mg PO QAM sumatriptan succinate 100 mg PO Q2-4H PRN 30 days Tobacco use date assessed: 12/13/23 Dental Screening Dental Screen Date: 12/13/23 Did you have a dental visit in the last 12 months?: Yes Did you have a dental problem in the last 6 months where you did not have access to dental care?: No Was dental information given to patient?: Patient has dentist HPI f/u HTN- weight check. HPI Details Patient is a 43 year-old female here today for a follow up.? Patient has a past medical history significant for hypertension, obesity, anxiety, bipolar disorder, major depressive disorder, stable asthma, thyroid nodule. Knee pain: Now followed by [facility] and has received cortisone injections in her knee .. Obesity: Unfortunately gained weight since last office visit, has found it very difficult to lose weight. She admits that her anxiety and depression is the reason she eats. She is interested medication to help kick start weight loss. .. 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 CT of the auditory canals did show otosclerosis. No cerumen impaction on physical exam today. She will follow-up with her ENT specialist about further evaluation ? .. ? Vit D Def/ thyroid nodules: Started on vitamin-D from her re etcher. Most recent vitamin-D level is 17 Patient reports she recently had a thyroid ultrasound showing a nodule was benign.? Has 1 year follow-up for ultrasound ..Migraines:? Patient reports her migrai sumanth are well controlled with the use of sumatriptan 100 mg as needed. ? .. ? Hypertension: Reports BP have been stable. Patient denies any chest pain, shortness of breath or further headaches. She reports that lisinopril 10 mg have been keeping her blood pressure is 120s over 80s. ? . ? Asthma:? She is followed by pulmonology,?she reports her asthma has been fairly well controlled.? Has been transition to Symbicort by her hair dresser. ? Bipolar disorder: Continues to be followed by Psychiatry, feels her mood has been stable. Does report having trouble sleeping though continues with medication. [facility] Medical History Multinodular thyroid Obesity Vitamin D deficiency Surgical History History of tubal ligation History of section Family History Mother Asthma Diabetes High cholesterol CVD (cardiovascular disease) Father Diabetes Asthma High cholesterol CVD (cardiovascular disease) Sister Diabetes Sister Diabetes Maternal Grandmother Diabetes Breast cancer Ovarian cancer Maternal Grandfather Diabetes Maternal Aunt Breast cancer Ovarian cancer Paternal Grandfather No problems noted. 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 1. Little interest or pleasure in doing things: not at all 2. Feeling down, depressed, or hopeless: not at all 3. Trouble falling or staying asleep, or sleeping too much: not at all 4. Feeling tired or having little energy: not at all 5. Poor appetite or overeating: not at all 6. Feeling bad about yourself - or that you are a failure or have let yourself or your family down: not at all 7. Trouble concentrating on things, such as reading the newspaper or watching television: not at all 8. Moving or speaking so slowly that other people could have noticed. Or the opposite - being so fidgety or restless that you have been moving around a lot more than usual: not at all 9. Thoughts that you would be better off or of hurting yourself in some way: not at all Total score: 0 Depression Screening Interpretation: Negative Depression Screening Done: Yes 65387 - PHQ-9 Billing: Yes Source: Developed by Drs. Jae Posadas, Jailene Singh, Jeramy Ro and colleagues, with an educational jeff from [employer]. Thrive Questionnaire Date Thrive assessed: 12/13/23 I am a: Patient What is your living situation today?: I have a steady place to live Within the past 12 months, did the food you bought not last and you didn't have the money to get more?: Never true Within the past 12 months, did you worry whether your food would run out before you got money to buy more?: Never true Do you have trouble paying for medicines?: No Do you have trouble getting transportation to medical appointments?: No Do you have trouble paying your heating and electricity bill?: No Do you have trouble taking care of your child, family member or friend?: No Do you have trouble with day-to-day activities such as bathing, preparing meals, shopping, managing finances, etc.?: No Are you currently unemployed and looking for a job?: No Are you interested in more education?: No Please select the resources that you would like help with: None Currently or been in a relationship where the following occur: no concerns reported THRIVE Score: 0 AUDIT C Alcohol Use Questionnaire (AUDIT-C) 1. How often do you have a drink containing alcohol?: Never 3. How often do you have six or more drinks on one occasion?: Never Total Score: 0 SHERRI-7 AMB Questionnaire SHERRI-7 Date SHERRI - 7 assessed: 12/13/23 Feeling nervous, anxious, or on edge: 3 = Nearly every day Not being able to stop or control worryin = Nearly every day Worrying too much about different things: 3 = Nearly every day Trouble relaxin = Nearly every day Being so restless that it is hard to sit still: 3 = Nearly every day Becoming easily annoyed or irritable: 3 = Nearly every day Feeling afraid as if something awful might happen: 3 = Nearly every day Total SHERRI-7 score (0-4 normal; 5-9 mild; 10-14 moderate; 15-21 severe): 21 Source: Developed by Drs. Jae Posadas, Jailene Singh, Jeramy Ro and colleagues, with an educational jeff from [employer]. SHERRI-7 Assessment Billing SHERRI-7 Assessment Tool: SHERRI-7 Assessment 88862 Review of Systems Const Denies headache(s) Eyes Denies loss of vision ENT Denies vertigo, Denies dizziness, Denies headache(s) and Denies sore throat Card Denies chest pain, Denies leg edema and Denies lightheadedness Resp Denies cough, Denies hemoptysis and Denies wheezing GI Denies abdominal pain, Denies melena, Denies constipation, Denies diarrhea and Denies vomiting Denies urinary frequency, Denies dysuria and Denies urinary urgency Musc Denies arthralgias, Denies joint swelling, Denies numbness and Denies tingling Neuro Denies Abnormal speech present, Denies behavioral changes, Denies vertigo, Denies dizziness, Denies headache(s), Denies loss of vision, Denies memory loss, Denies numbness and Denies tingling Psych Denies anxiety, Denies behavioral changes, Denies depression, Denies memory loss and Denies panic attacks Cesar/Lymph Denies easy bleeding and Denies easy bruising Aller/Immun Denies wheezing Physical exam (Primary Care) Vital Signs: Last Vital Signs Pulse 80 12/13/23 15:26 BP 124/76 12/13/23 15:26 Pulse Ox 97 12/13/23 15:26 Oxygen Delivery Method Room Air 12/13/23 15:26 BMI result Body Mass Index 38.3 BMI Assessment/Plan discussion: High Tobacco/Smoking Status: Tobacco use Status Tobacco use date assessed 12/13/23 12/13/23 15:31 Patient Tobacco Use Status Never used Tobacco 12/13/23 15:21 e-Cigarette/Vaping Use Never Used 12/13/23 15:21 PHQ-9: PHQ-9 Score PHQ-9: Total score 0 12/13/23 15:42 Depression Screening Interpretation: Negative Thrive Assessment: Date of Thrive Assessment Date Thrive assessed 12/13/23 12/13/23 15:31 Currently or been in a relationship where the following occur: no concerns reported Const Other: Obese General: healthy appearing, no acute distress, alert and awake Nutritional Appearance: well nourished Orientation/consciousness: oriented to person, oriented to place and oriented to time HENMT Ears: TM's normal bilaterally General nose exam: Normal nasal mucous membranes and turbinates present Eyes Conjunctivae: conjunctivae normal Sclerae: sclerae normal Pupils: Equal, round and reactive pupils present Neck Neck: Yes no lymphadenopathy and Yes no JVD Thyroid: Thyroid normal Carotids: no bruits Resp Effort & Inspection: normal respiratory effort and not tachypneic Auscultation: no crackles, no rales, no rhonchi and no wheezes Cardio Rate: regular rate Rhythm: regular rhythm Heart sounds: no murmurs and normal S1 and S2 GI Palpation (GI): Soft to palpation, nontender, no hepatomegaly and no splenomegaly Auscultation: normal bowel sounds Skin General skin exam: no rashes or lesions noted and dry skin Neuro General: oriented to person, oriented to place and oriented to time Cranial nerves: Yes Equal, round and reactive pupils present Speech: No Abnormal speech present Gait exam (Neuro): Normal gait present Motor exam (neuro): no tremor noted Extrem Right upper extremity: full ROM Left upper extremity: full ROM Right lower extremity: full ROM; no edema Left lower extremity: full ROM; no edema Psych Mental Status: mental status grossly normal Speech and movement: Normal speech and movement present Affect: normal affect Attitude: cooperative Thought process: Normal thought process present Assessment and Plan Assessment & Plan (1) Bilateral primary osteoarthritis of knee: Code(s): M17.0 - Bilateral primary osteoarthritis of knee Plan: As per HPI patient reports worsening left knee pain. She is followed by Orthopedic and gets cortisone injections that temporarily do help her pain. She does not take any anti thready medication. She has been working on trying to reduce her weight has she feels this will help. She is interested in physical therapy (2) Obese: Code(s): E66.9 - Obesity, unspecified Qualifiers: Body mass index: BMI 40.0-44.9 Obesity classification: adult class 3 (BMI >= 40) Obesity type: due to excess calories Serious obesity comorbidity presence: without serious comorbidity Qualified Code(s): E66.01 - Morbid (severe) obesity due to excess calories; Z68.41 - Body mass index [BMI]40.0- 44.9, adult Plan: Patient does understand her BMI is well above 30 will continue working on being more physically active and adapt to better eating habits to reduce her weight. She is interested in starting a medication to help her kick start weight loss. Will start phentermine 37.5 mg and follow-up with patient to do a weight check. (3) Asthma: Code(s): J45.909 - Unspecified asthma, uncomplicated Qualifiers: Asthma complication type: uncomplicated Asthma persistence: persistent Asthma severity: moderate Qualified Code(s): J45.40 - Moderate persistent asthma, uncomplicated Plan: Patient reports her asthma has been well controlled with p.r.n. use of albuterol inhaler. She denies any nighttime awakenings are recent asthma exacerbations. She is bothered by her allergies and would like a new allergy medication. (4) HTN (hypertension): Code(s): I10 - Essential (primary) hypertension Qualifiers: Hypertension type: primary hypertension Qualified Code(s): I10 - Essential (primary) hypertension Plan: Patient's blood pressure acceptable today in office. Will continue her current dose of lisinopril with goal blood pressure to remain below 140/90 (5) Impaired glucose metabolism: Code(s): R73.09 - Other abnormal glucose Plan: Patient's most recent fasting blood sugar at 108. Will check an A1c. She will continue working on low carbohydrate diet and weight reduction. (6) SHERRI (generalized anxiety disorder): Code(s): F41.1 - Generalized anxiety disorder Plan: Patient's SHERRI-7 score positive for moderate to severe anxiety which has been an existing condition for her. She continues to follow a psychiatrist and a mental health therapist. She does report some personal issues going on at home that are causing more anxiety. Continues on fairly high dose of SSRI therapy. She does use Risperdal on a daily basis along with clonazepam on a p.r.n. basis for anxiety. (7) Otosclerosis: Code(s): H80.90 - Unspecified otosclerosis, unspecified ear Qualifiers: Laterality: bilateral Qualified Code(s): H80.93 - Unspecified otosclerosis, bilateral Plan: CT of auditory canals showing otosclerosis. Now has bilateral hearing aids which have helped though continues to have poor hearing. She will follow-up with her ENT specialist about further evaluation and help with her hearing. Orders: Orders Comprehensive Dent. Panel Fast 12/13/23 R73.09 - Other abnormal glucose Microalbumin, Random (w Creat) 12/13/23 I10 - Essential (primary) hypertension TSH reflex Free T4 12/13/23 E04.2 - Nontoxic multinodular goiter Hemoglobin A1c 12/13/23 R73.09 - Other abnormal glucose Medications: New phentermine must administer 30 minutes before or 1-2 hours after breakfast 37.5 mg PO DAILY 28 days 28 caps 0RF E66.01 - Morbid (severe) obesity due to excess c alories, Z68.41 - Body mass index [BMI] 40.0-44.9, adult Coding Level of Care Code Est Pt Level 4 (85675) Diagnoses Bilateral primary osteoarthritis of knee M17.0 Class 3 severe obesity due to excess calories without serious comorbidity with body mass index (BMI) of 40.0 to 44.9 in adult E66.01; Z68.41 Body mass index: BMI 40.0-44.9 Obesity classification: adult class 3 (BMI >= 40) Obesity type: due to excess calories Serious obesity comorbidity presence: without serious comorbidity Moderate persistent asthma without complication J45.40 Asthma complication type: uncomplicated Asthma persistence: persistent Asthma severity: moderate Primary hypertension I10 Hypertension type: primary hypertension Impaired glucose metabolism R73.09 SHERRI (generalized anxiety disorder) F41.1 Otosclerosis of both ears H80.93 Laterality: bilateral Additional Codes SHERRI-7 Assessment Billing - SHERRI-7 Assessment Tool: SHERRI-7 Assessment [id number] ([id number])
[2023-12-13 15:26] VITALS: BP 124/76; PULSE 80; O2SAT 97; BMI 38.3
== END 2023-12-13 16:01 | disposition home or self-care (01) ==
PROVIDERS: PCP Physician Assistant; Visit Provider Physician Assistant
DX: M17.0 Bilateral primary osteoarthritis of knee (principal); E66.01 Morbid (severe) obesity due to excess calories; Z68.41 Body mass index [BMI] 40.0-44.9, adult; J45.40 Moderate persistent asthma, uncomplicated; I10 Essential (primary) hypertension; R73.09 Other abnormal glucose; F41.1 Generalized anxiety disorder; H80.93 Unspecified otosclerosis, bilateral
CPT/HCPCS: 99214

== ENCOUNTER 2024-02-09 11:20 | Outpatient (REF) | payer OTHER, SELFPAY | END 2024-02-09 11:21 | disposition home or self-care (01) | LOC: HO.HAP 11:20 | PROVIDERS: Visit Provider Physician Assistant | DX: Z46.1 Encounter for fitting and adjustment of hearing aid (principal); H90.6 Mixed conductive and sensorineural hearing loss, bilateral | CPT/HCPCS: V5266 ==

== ENCOUNTER 2024-02-15 10:30 | Outpatient (AMB) | payer OTHER, SELFPAY ==
--- NOTE | 2024-02-15 11:02 | A.OFFPC_ITS ---
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 Accompanied by: Self / Same As Patient Allergies Penicillins [PENICILLINS] Allergy (Mild, Verified 02/15/24 11:07) HIVES metformin Allergy (Unknown, Verified 02/15/24 11:07) rash methocarbamol [Robaxin] Allergy (Unknown, Verified 02/15/24 11:07) Unknown nitrofurantoin [From MACROBID] Allergy (Unknown, Verified 02/15/24 11:07) RASH penicillin V Allergy (Unknown, Verified 02/15/24 11:07) hives Sulfa (Sulfonamide Antibiotics) [SULFA (SULFONAMIDE ANTIBIOTICS)] Allergy (Unknown, Verified 02/15/24 11:07) UNKNOWN sulfamethoxazole [From BACTRIM] Allergy (Unknown, Verified 02/15/24 11:07) RASH trimethoprim [From BACTRIM] Allergy (Unknown, Verified 02/15/24 11:07) RASH Tobacco use date assessed: 12/13/23 Dental Screening Dental Screen Date: 12/13/23 HPI Weight Check HPI Details Patient is a 43-year-old female here today for a follow-up visit. We did discuss her weight at last visit and she decided she would like to try stimulant appetite suppressant medication. Took awhile to get coverage through insurance though has started medication recently. Has lost a few lb since last office visit. She would like to continue the medication for now to see if she can lose weight. We did discuss possible cardiovascular side effects such as high blood pressure and will continue monitoring blood pressure at home. She does take lisinopril hydrochlorothiazide regularly. [facility] Medical History Multinodular thyroid Obesity Vitamin D deficiency Surgical History History of tubal ligation History of section Family History Mother Asthma Diabetes High cholesterol CVD (cardiovascular disease) Father Diabetes Asthma High cholesterol CVD (cardiovascular disease) Sister Diabetes Sister Diabetes Maternal Grandmother Diabetes Breast cancer Ovarian cancer Maternal Grandfather Diabetes Maternal Aunt Breast cancer Ovarian cancer Paternal Grandfather No problems noted. 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 Jae Posadas, Jailene Singh, Jeramy Ro and colleagues, with an educational jeff from [employer]. Review of Systems Const Denies headache(s) Eyes Denies loss of vision ENT Denies vertigo, Denies dizziness, Denies headache(s) and Denies sore throat Card Denies chest pain, Denies leg edema and Denies lightheadedness Resp Denies cough, Denies hemoptysis and Denies wheezing GI Denies abdominal pain, Denies melena, Denies constipation, Denies diarrhea and Denies vomiting Denies urinary frequency, Denies dysuria and Denies urinary urgency Musc Denies arthralgias, Denies joint swelling, Denies numbness and Denies tingling Neuro Denies Abnormal speech present, Denies behavioral changes, Denies vertigo, Denies dizziness, Denies headache(s), Denies loss of vision, Denies memory loss, Denies numbness and Denies tingling Psych Denies anxiety, Denies behavioral changes, Denies depression, Denies memory loss and Denies panic attacks Cesar/Lymph Denies easy bleeding and Denies easy bruising Aller/Immun Denies wheezing Physical exam (Primary Care) Vital Signs: Last Vital Signs Pulse 76 02/15/24 11:06 BP 134/86 02/15/24 11:46 Pulse Ox 99 02/15/24 11:06 Oxygen Delivery Method Room Air 02/15/24 11:06 BMI result Body Mass Index 37.6 Tobacco/Smoking Status: Tobacco use Status Tobacco use date assessed 12/13/23 02/15/24 11:02 Patient Tobacco Use Status Never used Tobacco 02/15/24 11:02 e-Cigarette/Vaping Use Never Used 02/15/24 11:02 Thrive Assessment: Date of Thrive Assessment Date Thrive assessed 12/13/23 02/15/24 11:02 Const General: healthy appearing, no acute distress, alert and awake Nutritional Appearance: well nourished Orientation/consciousness: oriented to person, oriented to place and oriented to time HENMT Ears: TM's normal bilaterally General nose exam: Normal nasal mucous membranes and turbinates present Eyes Conjunctivae: conjunctivae normal Sclerae: sclerae normal Pupils: Equal, round and reactive pupils present Neck Neck: Yes no lymphadenopathy and Yes no JVD Thyroid: Thyroid normal Carotids: no bruits Resp Effort & Inspection: normal respiratory effort and not tachypneic Auscultation: no crackles, no rales, no rhonchi and no wheezes Cardio Rate: regular rate Rhythm: regular rhythm Heart sounds: no murmurs and normal S1 and S2 GI Palpation (GI): Soft to palpation, nontender, no hepatomegaly and no splenomegaly Auscultation: normal bowel sounds Skin General skin exam: no rashes or lesions noted and dry skin Neuro General: oriented to person, oriented to place and oriented to time Cranial nerves: Yes Equal, round and reactive pupils present Speech: No Abnormal speech present Gait exam (Neuro): Normal gait present Motor exam (neuro): no tremor noted Extrem Right upper extremity: full ROM Left upper extremity: full ROM Right lower extremity: full ROM; no edema Left lower extremity: full ROM; no edema Psych Mental Status: mental status grossly normal Speech and movement: Normal speech and movement present Affect: normal affect Attitude: cooperative Thought process: Normal thought process present Assessment and Plan Assessment & Plan (1) Obesity: Code(s): E66.9 - Obesity, unspecified Qualifiers: Body mass index: BMI 37.0-37.9 Obesity classification: adult class 2 (BMI 35 - 39.9) Obesity type: due to excess calories Serious obesity comorbidity presence: with serious comorbidity Qualified Code(s): E66.01 - Morbid (severe) obesity due to excess calories; Z68.37 - Body mass index [BMI] 37.0-37.9, adult Plan: Has recently started phentermine for appetite suppressant which has been helpful. She denies any side effects. Did note slight elevation in her blood pressure though on repeat blood pressure reading much improved. We did discuss only using phentermine for a 3-4 months time and patient agrees. (2) HTN (hypertension): Code(s): I10 - Essential (primary) hypertension Qualifiers: Hypertension type: primary hypertension Qualified Code(s): I10 - Essential (primary) hypertension Plan: Patient will continue lisinopril hydrochlorothiazide with goal blood pressure to be below 140/90 Medications: Refilled amitriptyline 10 mg PO DAILY 90 tabs 2RF H90.3 - Sensorineural hearing loss, bilateral loperamide 2 mg PO Q8H 90 caps 3RF Coding Level of Care Code Est Pt Level 4 (08093) Diagnoses Class 2 severe obesity due to excess calories with serious comorbidity and body mass index (BMI) of 37.0 to 37.9 in adult E66.01; Z68.37 Body mass index: BMI 37.0-37.9 Obesity classification: adult class 2 (BMI 35 - 39.9) Obesity type: due to excess calories Serious obesity comorbidity presence: with serious comorbidity Primary hypertension I10 Hypertension type: primary hypertension
[2024-02-15 11:06] VITALS: BP 144/94; PULSE 76; O2SAT 99; BMI 37.6
[2024-02-15 11:46] VITALS: BP 134/86
== END 2024-02-15 11:48 | disposition home or self-care (01) ==
PROVIDERS: PCP Physician Assistant; Visit Provider Physician Assistant
DX: I10 Essential (primary) hypertension (principal); E66.01 Morbid (severe) obesity due to excess calories; Z68.37 Body mass index [BMI] 37.0-37.9, adult
CPT/HCPCS: 99214

== ENCOUNTER 2024-03-11 12:33 | Emergency (ER) | payer OTHER, SELFPAY ==
--- NOTE | ~2024-03-11 | XR_ITS ---
EXAMINATION: XR HIP, LEFT CLINICAL INFORMATION: Pain, status post fall COMPARISON: None available. TECHNIQUE: Two views of the left hip. Pelvis one view. FINDINGS: Left hip: No visible acute fracture. Alignment is anatomic. Hip joint space is maintained. No suspicious soft tissue findings. Pelvis: Pelvic rings are intact. Mild symphysis pubis degeneration. No diastasis of the SI joints. Left hip joint space is maintained. No acute left hip fracture or dislocation. No acute pelvic fractures identified. Small chronic appearing calcification/ossification adjacent to the left greater trochanter. XR/XR hip LT w PEL1V IMPRESSION: No radiographic evidence of acute fracture or dislocation.
--- NOTE | ~2024-03-11 | XR_ITS ---
EXAMINATION: XR LUMBOSACRAL SPINE CLINICAL INFORMATION: Pain, status post fall COMPARISON: X-ray 09/11/2019 TECHNIQUE: Three views of the lumbosacral spine. FINDINGS: 5 nonrib-bearing vertebral bodies. The sagittal alignment is maintained. Vertebral body heights are maintained. No evidence of acute fracture. Moderate L5-S1 disc height loss with endplate osteophytes, similar to previous. Multilevel facet degeneration. No diastasis of the SI joints. No acute pelvic fractures seen. No suspicious soft tissue findings. XR/XR lumbar spine 2-3V IMPRESSION: No radiographic evidence of acute osseous abnormality. Moderate L5-S1 disc degeneration.
[2024-03-11 13:21] VITALS: BP 120/85; PULSE 77; RESP 18; TEMP 36.4; O2SAT 100; BMI 38.6
--- NOTE | 2024-03-11 13:21 | ED.BACK ---
HPI - Back Pain/Injury General Chief Complaint: Extremity Injury, Lower Stated Complaint: Fall T-1/Back pain Time Seen by Provider: 03/11/24 20:21 Source: patient Mode of arrival: ambulatory Limitations: no limitations History of Present Illness HPI Narrative: 43-year-old S medical history of generalized anxiety disorder osteoarthritis, hypertension, vitamin-D deficiency, multinodular thyroid, lumbar degenerative disc disese presents to the ED for low back pain after fall onto back. Patient states last night she slipped on a plastic plate that was under a blanket in her kitchen and she fell directly onto her back. Patient denies hitting head or loss of consciousness. Patient denies any dysuria, hematuria, flank pain, fever, chills, abdominal pain, nausea, or vomiting Related Data Home Medications ?Medication ?Instructions ?Recorded ?Confirmed lamotrigine 150 mg tablet 150 mg PO DAILY 08/24/20 12/13/23 risperidone 3 mg tablet (Risperdal) 3 mg PO BEDTIME 08/24/20 12/13/23 eszopiclone 3 mg tablet (Lunesta) 3 mg PO BEDTIME 06/08/22 12/13/23 sertraline 50 mg tablet 50 mg PO QAM 04/10/23 12/13/23 clonazepam 1 mg tablet 1 mg PO DAILY PRN 06/12/23 12/13/23 sertraline 100 mg tablet 100 mg PO DAILY 06/12/23 12/13/23 Previous Rx's ?Medication ?Instructions ?Recorded ipratropium 0.5 mg-albuterol 3 mg 3 ml inhalation Q4-6H PRN for 05/09/22 (2.5 mg base)/3 mL nebulization wheezing #810 mL soln sumatriptan succinate 100 mg tablet 100 mg PO Q2-4H PRN migraine 09/23/22 headache 30 days #9 tabs albuterol sulfate 90 mcg/actuation 2 puff inhalation Q6H PRN 11/18/22 aerosol inhaler shortness of breath or wheezing #6.7 grams cyclobenzaprine 10 mg tablet 10 mg PO TID PRN muscle spasm 30 03/15/23 days #90 tabs cholecalciferol (vitamin D3) 25 25 mcg PO DAILY #90 caps 07/19/23 mcg (1,000 unit) capsule (Vitamin D3) montelukast 10 mg tablet 10 mg PO BEDTIME 90 days #90 tabs 12/07/23 lisinopril 10 1 tab PO DAILY 90 days #90 tabs 01/29/24 mg-hydrochlorothiazide 12.5 mg tablet phentermine 37.5 mg capsule 37.5 mg PO DAILY 28 days #28 caps 02/05/24 amitriptyline 10 mg tablet 10 mg PO DAILY #90 tabs 02/15/24 loperamide 2 mg capsule 2 mg PO Q8H #90 caps 02/15/24 meloxicam 15 mg tablet 15 mg PO DAILY 30 days #30 tabs 03/04/24 levofloxacin 750 mg tablet 750 mg PO DAILY 5 days #5 tabs 03/11/24 naproxen 500 mg tablet 500 mg PO BID PRN pain 7 days #14 03/11/24 tabs Allergies Allergy/AdvReac Type Severity Reaction Status Date / Time Penicillins [PENICILLINS] Allergy Mild HIVES Verified 03/11/24 13:25 metformin Allergy Unknown rash Verified 03/11/24 13:25 methocarbamol [Robaxin] Allergy Unknown Unknown Verified 03/11/24 13:25 nitrofurantoin Allergy Unknown RASH Verified 03/11/24 13:25 [From MACROBID] penicillin V Allergy Unknown hives Verified 03/11/24 13:25 Sulfa (Sulfonamide Allergy Unknown UNKNOWN Verified 03/11/24 13:25 Antibiotics) [SULFA (SULFONAMIDE ANTIBIOTICS)] sulfamethoxazole Allergy Unknown RASH Verified 03/11/24 13:25 [From BACTRIM] trimethoprim [From BACTRIM] Allergy Unknown RASH Verified 03/11/24 13:25 Review of Systems Review of Systems: Low back pain Yes all other systems are reviewed and are negative [facility] Past Medical History Medical History Multinodular thyroid Obesity Vitamin D deficiency Surgical History History of tubal ligation History of section Family History Family History Mother Asthma Diabetes High cholesterol CVD (cardiovascular disease) Father Diabetes Asthma High cholesterol CVD (cardiovascular disease) Sister Diabetes Sister Diabetes Maternal Grandmother Diabetes Breast cancer Ovarian cancer Maternal Grandfather Diabetes Maternal Aunt Breast cancer Ovarian cancer Paternal Grandfather No problems noted. 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 Cognitive needs: No Hearing needs: Yes Vision needs: Yes Physical Exam Vital Signs: Vital Signs: Last Vital Signs Temp 97.0 F 03/11/24 21:01 Pulse 84 03/11/24 21:01 Resp 16 03/11/24 21:01 BP 147/88 H 03/11/24 21:01 Pulse Ox 100 03/11/24 21:01 O2 Del Method Room Air 03/11/24 21:01 BMI result Body Mass Index 38.6 Const: General: cooperative, healthy appearing, comfortable, no acute distress, well developed, alert, awake and Physically active Orientation/consciousness: oriented to person, oriented to place, oriented to time and patient oriented x3 HEENT: Head: Yes normal to inspection, Yes No palpable skull fracture present, Yes normocephalic, Yes atraumatic and No abrasion Eyes: General: appearance normal, both eyes and all related structures Neck: Neck: Yes normal visual inspection, Yes full ROM, Yes no lymphadenopathy, Yes no meningeal signs, Yes trachea midline, Yes supple, No anterior neck swelling and No tender Chest: Chest palpation & inspection: normal inspection of the chest and normal palpation of entire chest wall Resp: Effort & Inspection: normal respiratory effort and able to speak in complete sentences Auscultation: clear to auscultation bilaterally Cardio: Jugular venous distension: no JVD Heart sounds: S1 normal heart sound present and S2 normal heart sound present GI: Inspection: Yes normal to inspection and No abdominal wall ecchymosis Palpation (GI): Soft to palpation, not firm, nontender and no guarding : General: No CVA tenderness and Yes no CVA tenderness Back/Spine/Pelvis: Back: no CVA tenderness, No CVA tenderness and back tenderness (Lumbar spine tenderness) Skin: General skin exam: no rashes or lesions noted, elasticity normal and turgor normal Neuro: General: oriented to person, oriented to place, oriented to time, patient oriented x3, gait normal, tone normal, moves all extremities, Normal light touch and pain sensation, no meningeal signs, no focal motor deficits, CN's II-XI intact bilaterally and normal sensation to monofilament Extrem: General: Yes normal to inspection, Yes full ROM and Yes capillary refill normal Psych: Appearance: grossly normal, well kempt and not disheveled Course Course Course Narrative: This is an RME: Additional HPI, ROS, PE not included below will be deferred to primary provider. RME assessment and note performed by: Radha Wong PA-C This is a 26-tium-qya-female, with a PMHx of HTN, obesity, asthma,who presents to the ER with a complaint of back pain. Pt states that she slipped on a plate and landed backwards onto her buttocks. Denies hitting her head or loss of consciousness. Reporting left-sided back pain that is radiating into her abdomen. Patient has tenderness palpation along her left abdomen as well as left lumbar regions and left buttocks. She states that she has not had her menses in 2 months which is atypical for her. Reporting some vaginal discharge Plan: Labs, UA, XR, further ER evaluation needed Medical Decision Making Medical Decision Making [facility] Narrative: 43-year-old female presents to ED for low back pain at slight due to slipping on a plate. Patient denies hitting head or loss of consciousness. Patient denies any of this. Labs are normal. Lumbar spine x-ray negative for fracture but confirms degenerative disc disease spine. UA shows urinary tract infection. Patient will be discharged with antibiotics. Not suspecting kidney stones pyelonephritis, epidural abscess, or cauda equinus. Patient denies any urinary/bowel incontinence or history of any IV drug use. Patient explained worrisome signs informed to return to the ED and follow-up with primary care provider Differential Diagnosis Differential Diagnoses: The differential diagnosis associated with the presentation includes (spine fracture, UTI, contusion) Admission/Observation Consideration of admission/observation: Escalation of care including admission/observation considered Lab Data [facility] Lab Attestation statement: I reviewed the patient's lab results. 03/11/24 14:59 05/20/24 14:59 Labs: Lab Results 03/11/24 Range/Units 14:59 WBC 9.4 (4.8-10.8) X10*3/uL RBC 4.10 L (4.20-5.50) X10*6/uL Hgb 12.3 (12.0-16.0) g/dl Hct 35.2 L (37.0-47.0) % MCV 85.9 (80.0-98.0) fL MCH 30.0 (27.0-33.0) pg MCHC 34.9 (31.0-35.0) g/dl RDW 13.2 (11.0-16.0) % Plt Count 243 (160-400) X10*3/uL MPV 10.2 (9.4-12.3) fL Immature Gran % (Auto) 0.2 (0.0-0.4) % Neut % (Auto) 68.5 (45-73) % Lymph % (Auto) 24.9 (20-40) % [place] % (Auto) 5.5 (2-11) % Eos % (Auto) 0.4 (0-4) % Baso % (Auto) 0.5 (0-2) % Lymph # (Auto) 2.4 (1.2-4.9) X10*3/uL [place] # (Auto) 0.5 (0.1-1.2) X10*3/uL Eos # (Auto) 0.0 (0.0-0.4) X10*3/uL Baso # (Auto) 0.1 (0.0-0.2) X10*3/uL Abs Immat Gran (auto) 0.02 (0.00-0.03) X10*3/uL Absolute Neuts (auto) 6.4 (2.0-8.3) x10*3/uL Absolute Nucleated RBC 0.000 (0.0-0.012) X10*3/uL Nucleated RBC % (auto) 0.0 (0.0-0.2) /100WBC Sodium 136 (135-145) mmol/L Potassium 4.1 (3.3-5.1) mmol/L Chloride 102 (96-108) mmol/L Carbon Dioxide 26 (22-29) mmol/L Anion Gap 12 (12-20) BUN 14 (9-16) mg/dL Creatinine 1.06 (0.5-1.4) mg/dL Estim Creat Clear Calc 86.4 Estimated GFR 56 Random Glucose 122 H (60-115) mg/dL Calcium 10.9 H (8.4-10.2) mg/dL Total Bilirubin 0.4 (0.0-1.0) mg/dL Direct Bilirubin 0.1 (0.0-0.5) mg/dL AST 14 (5-31) U/L ALT 13 (0-31) U/L Alkaline Phosphatase 77 (39-117) U/L Total Protein 7.8 (6.5-8.0) g/dL Albumin 4.2 (3.5-5.0) g/dL Lipase 32 (8-78) U/L Beta HCG, Quant < 2 mIU/mL Urine Color Yellow Urine Appearance Cloudy Urine pH 5.5 (5.0-9.0) Ur Specific [place] 1.020 (1.005-1.025) Urine Protein 30 (1+) H (Neg-Trace) mg/dL Urine Glucose (UA) Negative (Negative) mg/dL Urine Ketones 15 (Negative) mg/dL Urine Blood Small (1+) H (Negative) Urine Nitrite Positive H (Negative) Ur Leukocyte Esterase Small (1+) H (Negative) Urine RBC 0-2 (0-2) /HPF Urine WBC 11-20 H (0-5) /HPF Ur Squamous Epith Cells 11-20 (0-2) /HPF Urine Bacteria 4+ (None Seen) Hyaline Casts >20 (0-2) /LPF Independent Interpretation I performed an independent interpretation of an: Plain X-Ray Radiology Impression Discussion of test interpretation with radiology: I have reviewed the radiologist's reading. Independent Historian Clinical information obtained from an independent historian. History obtained from or confirmed by: Other (Patient) External Record Review External record reviewed: Other (Prior visits) Prescription Management I considered prescription management with: Antibiotic Discharge Plan Discharge Clinical Impression: UTI (urinary tract infection), Lumbar radiculopathy, Contusion Patient Disposition: Home, Self-Care Instructions: Urinary Tract Infection in Women (ED), Contusion in Adults (ED), Lumbar Radiculopathy (ED) Additional Instructions: Return to the ED immediately for any abdominal pain, nausea, vomiting, flank pain, fever, chills, dysuria, hematuria, headache, dizziness, chest pain, shortness of breath, or any other concerning symptoms. Recommend follow-up with primary care provider. Do not take any other NSAIDs with naproxen. Prescriptions: New levofloxacin 750 mg tablet 750 mg PO DAILY 5 Days Qty: 5 0RF naproxen 500 mg tablet 500 mg PO BID PRN (Reason: pain) 7 Days Qty: 14 0RF No Action ipratropium-albuterol 0.5 mg-3 mg(2.5 mg base)/3 mL solution for nebulization 3 ml inhalation Q4-6H PRN (Reason: for wheezing) Qty: 810 1RF sumatriptan succinate 100 mg tablet 100 mg PO Q2-4H PRN (Reason: migraine headache) 30 Days Qty: 9 3RF Rx Instructions: do not exceed 2 doses per 24 hrs cyclobenzaprine 10 mg tablet 10 mg PO TID PRN (Reason: muscle spasm) 30 Days Qty: 90 3RF cholecalciferol (vitamin D3) [Vitamin D3] 25 mcg (1,000 unit) capsule 25 mcg PO DAILY Qty: 90 3RF montelukast 10 mg tablet 10 mg PO BEDTIME 90 Days Qty: 90 2RF lisinopril-hydrochlorothiazide 10-12.5 mg tablet 1 tab PO DAILY 90 Days Qty: 90 1RF phentermine 37.5 mg capsule 37.5 mg PO DAILY 28 Days Qty: 28 0RF Rx Instructions: must administer 30 minutes before or 1-2 hours after breakfast meloxicam 15 mg tablet 15 mg PO DAILY 30 Days Qty: 30 3RF eszopiclone [Lunesta] 3 mg tablet 3 mg PO BEDTIME clonazepam 1 mg tablet 1 mg PO DAILY PRN sertraline 100 mg tablet 100 mg PO DAILY albuterol sulfate 90 mcg/actuation HFA aerosol inhaler 2 puff inhalation Q6H PRN (Reason: shortness of breath or wheezing) Qty: 6.7 0RF amitriptyline 10 mg tablet 10 mg PO DAILY Qty: 90 2RF loperamide 2 mg capsule 2 mg PO Q8H Qty: 90 3RF risperidone [Risperdal] 3 mg tablet 3 mg PO BEDTIME lamotrigine 150 mg tablet 150 mg PO DAILY sertraline 50 mg tablet 50 mg PO QAM Stand Alone Forms: Work/School Release Interventions: ED Discharge Assessment Last Done: 03/11/24 21:01 Discharge Date/Time: 03/11/24 21:05 Print Language: Korean
[2024-03-11 15:06] LABS: MANUAL DIFF FLAG NO
[2024-03-11 15:08] LABS: Appearance Urine Cloudy; Color Urine Yellow; Glucose Urine UA Negative (Negative); Leukocyte Esterase Urine Small (1+) (Negative); Nitrite Urine Positive (Negative); PH 5.5 (5.0-9.0); UMIC TRIGGER UACC YES; Urine Blood Small (1+) (Negative); Urine Ketones 15 mg/dL (Negative); Urine Protein 30 (1+) mg/dL (Neg-Trace)
[2024-03-11 15:15] LABS: PLT CLUMP 1; SCAN SMEAR FLAG 1
[2024-03-11 15:16] LABS: Bacteria Urine 4+ (None Seen); Hyaline Casts Urine >20 /LPF (0-2); RBC Urine 0-2 /HPF (0-2); UACC Culture Trigger YES
[2024-03-11 15:31] LABS: Basophils Absolute Auto 0.1 X10*3/uL (0.0-0.2); Basophils Percent Auto 0.5 % (0-2); Eosinophils Percent Auto 0.4 % (0-4); Hematocrit 35.2 % (37.0-47.0); Hemoglobin 12.3 g/dl (12.0-16.0); Imm Gran Abs Auto 0.02 X10*3/uL (0.00-0.03); Imm Gran Pct Auto 0.2 % (0.0-0.4); Lymphocytes Absolute Auto 2.4 X10*3/uL (1.2-4.9); Lymphocytes Percent Auto 24.9 % (20-40); Mean Corpuscular HGB Conc 34.9 g/dl (31.0-35.0); Mean Corpuscular Volume 85.9 fL (80.0-98.0); Mean Platelet Volume 10.2 fL (9.4-12.3); Monocytes Absolute Auto 0.5 X10*3/uL (0.1-1.2); Monocytes Percent Auto 5.5 % (2-11); Neutrophils Absolute Auto 6.4 x10*3/uL (2.0-8.3); Neutrophils Percent Auto 68.5 % (45-73); Platelet Count 243 X10*3/uL (160-400); Red Cell Distribution Width 13.2 % (11.0-16.0); White Blood Count 9.4 X10*3/uL (4.8-10.8)
[2024-03-11 15:37] LABS: Alanine Aminotransferase 13 U/L (0-31); Albumin Level 4.2 g/dL (3.5-5.0); Alkaline Phosphatase 77 U/L (39-117); Anion Gap 12 (12-20); Aspartate Amino Transferase 14 U/L (5-31); Bilirubin Direct 0.1 mg/dL (0.0-0.5); Bilirubin Total 0.4 mg/dL (0.0-1.0); Blood Urea Nitrogen 14 mg/dL (9-16); Calcium 10.9 mg/dL (8.4-10.2); Carbon Dioxide 26 mmol/L (22-29); Chloride 102 mmol/L (96-108); Creatinine Clr Calc Pharmacy 86.4; Estimated Glomerular Filt Rate 56; Glucose Random 122 mg/dL (60-115); HCG Quantitative < 2 mIU/mL; Lipase 32 U/L (8-78); Potassium 4.1 mmol/L (3.3-5.1); Sodium 136 mmol/L (135-145); Total Protein 7.8 g/dL (6.5-8.0)
[2024-03-11 16:40] VITALS: BP 112/65; PULSE 70; RESP 16; TEMP 36.6; O2SAT 100
[2024-03-11 20:40] VITALS: BP 147/88; PULSE 84; RESP 16; TEMP 36.1; O2SAT 100
[2024-03-11 21:01] VITALS: BP 147/88; PULSE 84; RESP 16; TEMP 36.1; O2SAT 100
--- NOTE | 2024-03-11 21:02 | PC.NURSE ---
Patient states that her son left a plate on her floor and it was covered by a blanket, patient then slipped on plate and fell hard on her buttocks. Patient states that she already has some back pain and this just made it worse. Patient is also stating that the pain is better now than when she came in today.
== END 2024-03-11 21:05 | disposition home or self-care (01) ==
PROVIDERS: Physician Assistant Medical; Emergency Provider Internal Medicine; PCP Physician Assistant
DX: S30.0XXA Contusion of lower back and pelvis, initial encounter (principal); N39.0 Urinary tract infection, site not specified; M54.16 Radiculopathy, lumbar region; W01.0XXA Fall on same level from slipping, tripping and stumbling without subsequent striking against object, initial encounter; I10 Essential (primary) hypertension; Y93.89 Activity, other specified; Y92.000 Kitchen of unspecified non-institutional (private) residence as the place of occurrence of the external cause; Y99.9 Unspecified external cause status
CPT/HCPCS: 36415; 72100; 73502; 80048; 80076; 81001; 83690; 84702; 85025; 87086; 87088; 87186; 99284

== ENCOUNTER 2024-04-03 10:33 | Outpatient (REF) | payer OTHER, SELFPAY ==
--- NOTE | ~2024-04-03 | US_ITS ---
EXAMINATION: US THYROID CLINICAL INFORMATION: Nontoxic multinodular goiter. COMPARISON: Thyroid ultrasound 03/22/2023 and 04/20/2022. CT soft tissue neck 06/26/2020. TECHNIQUE: Linear transducer grayscale and color Doppler examination with attention to the region of the thyroid. FINDINGS: SIZE: Measurements of the thyroid lobes and nodules are given in sagittal, anteroposterior and transverse dimensions respectively. Right Thyroid Lobe: 5.1 x 2.0 x 2.4 cm, volume 12.9 mL. Previously 4.9 x 2.0 x 2.0 cm, volume 10.3 mL. Parenchyma: The gland echotexture is homogeneous. Thyroid vascularity is normal. Left Thyroid Lobe: 5.2 x 1.6 x 1.8 cm, volume 8.0 mL. Previously 4.9 x 2.1 x 2.1 cm, volume 11.3 mL. Parenchyma: The gland echotexture is homogeneous. Thyroid vascularity is normal. Isthmus: 0.5 cm in maximum AP dimension. Previously 0.5 cm. Estimated total number of nodules greater than or equal to 1 cm: 1. [employer] Att[employer] nodules are described as follows: 1. Location: Right midpole. Size: 0.8 x 0.5 x 0.7 cm, volume 0.14 mL. Previously: 0.5 x 0.4 x 0.6 cm, volume 0.06 mL. Nodule characteristics: Composition: Solid/almost completely solid (2). Echogenicity: Isoechoic (1). Shape: Not taller than wide (0). Margins: Ill-defined (0). Echogenic Foci: None (0). ACR TI-RADS total points: 3. Previous: 3. ACR TI-RADS category: 3. Previous: 3. Significant change in size (>/= 20% in 2 dimensions and minimal increase of 2 mm or 50% or greater increase in volume): Yes Change in features: No Change in ACR TI-RADS risk category: No 2. Location: Right mid pole. Size: 0.9 x 0.6 x 0.5 cm, volume 0.14 mL. Previously: 0.7 x 0.5 x 0.6 cm, volume 0.11 mL. Nodule characteristics: Composition: Solid/almost completely solid (2). Echogenicity: Hypoechoic (2). Shape: Not taller than wide (0). Margins: Ill-defined (0). Echogenic Foci: None (0). ACR TI-RADS total points: 4. Previous: 3. ACR TI-RADS category: 4. Previous: 3. Significant change in size (>/= 20% in 2 dimensions and minimal increase of 2 mm or 50% or greater increase in volume): Yes Change in features: No Change in ACR TI-RADS risk category: No 3. Location: Right midpole. Size: 1.0 x 0.6 x 0.7 cm, volume 0.21 mL. Previously: 0.8 x 0.6 x 0.8 cm, volume 0.20 mL. Nodule characteristics: Composition: Solid/almost completely solid (2). Echogenicity: Hypoechoic (2). Shape: Not taller than wide (0). Margins: Ill-defined (0). Echogenic Foci: None (0). ACR TI-RADS total points: 4. Previous: 3. ACR TI-RADS category: 4. Previous: 3. Significant change in size (>/= 20% in 2 dimensions and minimal increase of 2 mm or 50% or greater increase in volume): No Change in features: Yes Change in ACR TI-RADS risk category: Yes 4. Location: Left midpole. Size: 0.6 x 0.4 x 0.6 cm, volume 0.07 mL. Previously: 0.8 x 0.5 x 0.8 cm, volume 0.02 mL. Nodule characteristics: Composition: Solid/almost completely solid (2). Echogenicity: Hypoechoic (2). Shape: Not taller than wide (0). Margins: Ill-defined (0). Echogenic Foci: None (0). ACR TI-RADS total points: 4. Previous: 3. ACR TI-RADS category: 4. Previous: 3. Significant change in size (>/= 20% in 2 dimensions and minimal increase of 2 mm or 50% or greater increase in volume): Yes Change in features: Yes Change in ACR TI-RADS risk category: Yes 5. Location: Left lower pole. Size: 0.9 x 0.3 x 0.5 cm, volume 0.07 mL. Previously: 0.8 x 0.6 x 1.0 cm, volume 0.40 mL. Nodule characteristics: Composition: Solid/almost completely solid (2). Echogenicity: Hypoechoic (2). Shape: Not taller than wide (0). Margins: Ill-defined (0). Echogenic Foci: None (0). ACR TI-RADS total points: 4. Previous: 3. ACR TI-RADS category: 4. Previous: 3. Significant change in size (>/= 20% in 2 dimensions and minimal increase of 2 mm or 50% or greater increase in volume): Yes Change in features: Yes Change in ACR TI-RADS risk category: Yes NODES: No lymphadenopathy is seen in the tissue surrounding the thyroid gland. US/US thyroid IMPRESSION: Multiple bilateral thyroid nodules as detailed above, largest 1.0 cm right mid TR4. Recommend follow-up ultrasound in 12 months. ACR TI-RADS RECOMMENDATION REFERENCE: Ultrasound-guided fine-needle aspiration, follow up ultrasound, no further followup. * TR1 (0 point) and TR2 (2 points): No FNA or followup. * TR3 (3 points): FNA if more than or equal to 2.5 cm in maximum dimension, follow up ultrasound in 1, 3 and 5 years if 1.5 to 2.4 cm in maximum dimension. * TR4 (4-6 points): FNA if more than or equal to 1.5 cm in maximum dimension, follow up ultrasound in 1, 2, 3 and 5 years if 1 to 1.4 cm in maximum dimension. * TR5 (more than or equal to 7 points): FNA if more than or equal to 1 cm in maximum dimension, follow up ultrasound every year for 5 years if 0.5 to 0.9 cm in maximum dimension. * TR3, TR4 or TR5 nodules that are below the size threshold for follow up receive no followup.
[2024-04-03 11:02] LABS: Hematocrit 32.4 % (37.0-47.0); Hemoglobin 11.4 g/dl (12.0-16.0); Mean Corpuscular HGB Conc 35.2 g/dl (31.0-35.0); Mean Corpuscular Hemoglobin 30.4 pg (27.0-33.0); Mean Corpuscular Volume 86.4 fL (80.0-98.0); Mean Platelet Volume 10.1 fL (9.4-12.3); Platelet Count 216 X10*3/uL (160-400); Red Blood Count 3.75 X10*6/uL (4.20-5.50); Red Cell Distribution Width 13.2 % (11.0-16.0); White Blood Count 7.3 X10*3/uL (4.8-10.8)
[2024-04-03 11:07] LABS: Estimated Average Glucose 114 mg/dL; Hemoglobin A1c % 5.6 % (<6.0)
[2024-04-03 11:32] LABS: Alanine Aminotransferase 8 U/L (0-31); Anion Gap 11 (12-20); Aspartate Amino Transferase 12 U/L (5-31); Bilirubin Total 0.6 mg/dL (0.0-1.0); Blood Urea Nitrogen 25 mg/dL (9-16); Calcium 10.2 mg/dL (8.4-10.2); Carbon Dioxide 26 mmol/L (22-29); Chloride 103 mmol/L (96-108); Cholesterol 141 mg/dL (<200); Estimated Glomerular Filt Rate > 60; Glucose Fasting 92 mg/dL (60-99); Glucose Random 91 mg/dL (60-115); HDL Cholesterol 57 mg/dL (>40); Iron 122 mcg/dL (30-160); LDL Cholesterol Calculated 71 mg/dL (<100); Percent Iron Saturation 42 % (15-50); Potassium 3.9 mmol/L (3.3-5.1); Sodium 136 mmol/L (135-145); Total Iron Binding Capacity 289 mcg/dL (228-428); Total Protein 7.3 g/dL (6.5-8.0); Triglycerides 69 mg/dL (<150); Unsaturated Iron Binding 167 ug/dL
[2024-04-03 11:47] LABS: Alkaline Phosphatase 76 U/L (39-117); HCG Quantitative < 2 mIU/mL; TSH reflex Free T4 1.23 uIU/mL (0.32-4.0)
[2024-04-03 12:35] LABS: Creatinine Urine 150.35 mg/dL; Microalbum/Creatinine Ratio Ur 13.3 ug/mg cr (<30)
== END 2024-04-03 10:34 | disposition home or self-care (01) ==
LOC: HO.US 10:33
PROVIDERS: PCP Physician Assistant; Visit Provider Internal Medicine Endocrinology, Diabetes & Metabolism
DX: E04.2 Nontoxic multinodular goiter (principal); I10 Essential (primary) hypertension; R73.09 Other abnormal glucose; R42 Dizziness and giddiness; D50.9 Iron deficiency anemia, unspecified; N91.2 Amenorrhea, unspecified
CPT/HCPCS: 36415; 76536; 80048; 80053; 80061; 82043; 82570; 83036; 83540; 84443; 84702; 85027

== ENCOUNTER 2024-04-10 10:10 | Outpatient (AMB) | payer OTHER, SELFPAY ==
[2024-04-10 10:13] VITALS: BP 102/72; PULSE 83; BMI 37.6
--- NOTE | 2024-04-10 10:13 | MHC.OFFVIS ---
Vital Signs 04/10/24 10:13 Height 5 ft 7 in Weight 240 lb 4.862 oz BMI 37.6 BP 102/72 Blood Pressure Location Lt brachial Position Sitting Pulse 83 Pulse Source Pulse Oximeter Intake Visit Reasons: F/Up NTMNG-confirmed Intake Note: Patient present today for NTMNG follow up visit. Tafe Registrar Required: No Accompanied by: Self / Same As Patient Allergies Penicillins [PENICILLINS] Allergy (Mild, Verified 04/10/24 10:17) HIVES metformin Allergy (Unknown, Verified 04/10/24 10:17) rash methocarbamol [Robaxin] Allergy (Unknown, Verified 04/10/24 10:17) Unknown nitrofurantoin [From MACROBID] Allergy (Unknown, Verified 04/10/24 10:17) RASH penicillin V Allergy (Unknown, Verified 04/10/24 10:17) hives Sulfa (Sulfonamide Antibiotics) [SULFA (SULFONAMIDE ANTIBIOTICS)] Allergy (Unknown, Verified 04/10/24 10:17) UNKNOWN sulfamethoxazole [From BACTRIM] Allergy (Unknown, Verified 04/10/24 10:17) RASH trimethoprim [From BACTRIM] Allergy (Unknown, Verified 04/10/24 10:17) RASH Medication List - Last Reconciled 04/10/24 by Jae Pérez MD albuterol sulfate 90 mcg/actuation 2 puffs inhalation Q6H PRN amitriptyline 10 mg PO DAILY cholecalciferol (vitamin D3) (Vitamin D3) 25 mcg PO DAILY clonazepam 1 mg PO DAILY PRN cyclobenzaprine 10 mg PO TID PRN 30 days eszopiclone (Lunesta) 3 mg PO BEDTIME ipratropium-albuterol 0.5 mg-3 mg(2.5 mg base)/3 mL 3 mL inhalation Q4-6H PRN lamotrigine 150 mg PO DAILY levofloxacin 750 mg PO DAILY 5 days lisinopril-hydrochlorothiazide 10-12.5 mg 1 tab PO DAILY 90 days loperamide 2 mg PO Q8H meloxicam 15 mg PO DAILY 30 days montelukast 10 mg PO BEDTIME 90 days naproxen 500 mg PO BID PRN 7 days phentermine 37.5 mg PO DAILY 28 days risperidone (Risperdal) 3 mg PO BEDTIME sertraline 100 mg PO DAILY sertraline 50 mg PO QAM sumatriptan succinate 100 mg PO Q2-4H PRN 30 days HPI Comments Details: 43 YO Female with extensive psych history including bipolar disorder, depression, anxiety. Also HTN. She is seen in F/U today for NTMNG. The patient last saw Dr. Quiroz on 03/1923 She had thyroid US completed in early 2018 which revealed multiple bilateral thyroid nodules. She did have RMP nodule measuring 1.0 cm with an irregular margin, so FNA was completed. At the time of FNA there was notice of additional nodules which were not measured on the initial US. FNA was completed 12/27/18 of 2 separate R mid pole 1.2 cm nodules. Cytology for both nodules was benign, bethesda category II. She does mention some hoarseness of voice, but denies any other compressive symptoms. She had a CT of the neck completed 06/26/2020 which revealed no substernal extension, but multiple bilateral thyroid nodules. Repeat thyroid US was unchanged. She also reports difficulty losing weight. Thyroid US: 03/22/2023 Right Thyroid Lobe: 4.9 x 2.0 x 2.0 cm, volume 10.3 mL. Previously 5.0 x 1.6 x 1.9 cm, volume 7.9 mL. Parenchyma: The gland echotexture is slightly heterogeneous. Thyroid vascularity is normal. Left Thyroid Lobe: 4.9 x 2.1 x 2.1 cm, volume 11.3 mL. Previously 5.6 x 1.5 x 2.1 cm, volume 9.2 mL. Parenchyma: The gland echotexture is slightly heterogeneous Thyroid vascularity is normal. Isthmus: 0.5 cm in maximum AP dimension. Previously 0.5 cm. Estimated total number of nodules greater than or equal to 1 cm: 1. [employer] nodules are described as follows: 1.? Location: Right mid lateral. ?? ? Size: 0.5 x 0.4 x 0.6 cm, volume 0.06 mL. ?? ? Previously: 0.5 x 0.3 x 0.5 cm, volume 0.05 mL. ?? ? Nodule characteristics: ?? ? Composition: Solid/almost completely solid (2). ?? ? Echogenicity: Isoechoic (1). ?? ? Shape: Not taller than wide (0). ?? ? Margins: Ill-defined (0). ?? ? Echogenic Foci: None (0).? ACR TI-RADS total points: 3 Previous: 5 ?? ? ACR TI-RADS category: 3 Previous: 4 ? Significant change in size (>/= 20% in 2 dimensions and minimal increase of 2 mm or 50% or greater increase in volume): ?? ? Change in features: ?? ? Change in ACR TI-RADS risk category: 2.? Location: Right mid. ?? ? Size: 0.8 x 0.6 x 0.8 cm, volume 0.2 mL. ?? ? Previously: Not documented on the previous study. ?? ? Nodule characteristics: ?? ? Composition: Solid (2). ?? ? Echogenicity: Hyperechoic (1). ?? ? Shape: Not taller than wide (0). ?? ? Margins: Ill-defined (0). ?? ? Echogenic Foci: None (0). ? ACR TI-RADS total points: 3 ?? ? ACR TI-RADS category: 3 3.? Location: Right mid. ?? ? Size: 0.7 x 0.5 x 0.6 cm, volume 0.1 mL. ?? ? Previously: Not documented on the previous study. ?? ? Nodule characteristics: ?? ? Composition: Solid (2). ?? ? Echogenicity: Hyperechoic (1). ?? ? Shape: Not taller than wide (0). ?? ? Margins: Ill-defined (0). ?? ? Echogenic Foci: None (0).? ACR TI-RADS total points: 3 ?? ? ACR TI-RADS category: 3 Nodules 2 and 3 were previously measured as 1 nodule and probably not appreciably changed in size. 4.? Location: Left superior. ?? ? Size: 0.8 x 0.5 x 0.8 cm, volume 0.2 mL. ?? ? Previously: New since the previous study. ?? ? Nodule characteristics: ?? ? Composition: Solid (2). ?? ? Echogenicity: Hyperechoic (1). ?? ? Shape: Not taller than wide (0). ?? ? Margins: Ill-defined (0). ?? ? Echogenic Foci: None (0). ? ACR TI-RADS total points: 3 ?? ? ACR TI-RADS category: 3 5.? Location: Left inferior. ?? ? Size: 0.8 x 0.6 x 1.0 cm, volume 0.3 mL. ?? ? Previously: 0.9 x 0.7 x 1.1 cm, volume 0.4 mL. ?? ? Nodule characteristics: ?? ? Composition: Solid/almost completely solid (2). ?? ? Echogenicity: Hyperechoic (1). ?? ? Shape: Not taller than wide (0). ?? ? Margins: Smooth (0). ?? ? Echogenic Foci: None (0). ? ACR TI-RADS total points: 3 Previous: 4 ?? ? ACR TI-RADS category: 3 Previous: 4 ? Significant change in size (>/= 20% in 2 dimensions and minimal increase of 2 mm or 50% or greater increase in volume): ?? ? Change in features: ?? ? Change in ACR TI-RADS risk category: ?? ? NODES: No lymphadenopathy is seen in the tissue surrounding the thyroid gland. Labs: Laboratory Tests 03/22/23 10:15 25-OH Vitamin D Total 17.2 TSH 0.79 Free T4 0.92 c/o horase voice. Some dysphagia PFSH Medical History Multinodular thyroid Obesity Vitamin D deficiency Surgical History History of tubal ligation History of section Family History Mother Asthma Diabetes High cholesterol CVD (cardiovascular disease) Father Diabetes Asthma High cholesterol CVD (cardiovascular disease) Sister Diabetes Sister Diabetes Maternal Grandmother Diabetes Breast cancer Ovarian cancer Maternal Grandfather Diabetes Maternal Aunt Breast cancer Ovarian cancer Paternal Grandfather No problems noted. 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 There are no palpable thyroid nodules Assessment & Plan Assessment & Plan (1) Multinodular thyroid: Code(s): E04.2 - Nontoxic multinodular goiter Category: Medical Plan: This is a 43-year-old female with a history of multinodular goiter FNA was completed 12/27/18 of 2 separate R mid pole 1.2 cm nodules. Cytology for both nodules was benign, bethesda category II. She appears to be clinically and biochemically euthyroid. Repeat thyroid ultrasound report is pending. Plan is to check the thyroid ultrasound when report is completed. Because of obstructive symptoms, will refer to Dr. Jacobo for possible thyroid surgery. Orders: Referrals General Surgery Referral E04.2 - Nontoxic multinodular goiter Coding Level of Care Code Est Pt Level 3 (20554) Complex EM visit Add On G2211 Diagnoses Multinodular thyroid E04.2
== END 2024-04-10 11:18 | disposition home or self-care (01) ==
PROVIDERS: PCP Physician Assistant; Visit Provider Internal Medicine Endocrinology, Diabetes & Metabolism
DX: E04.2 Nontoxic multinodular goiter (principal)
CPT/HCPCS: 99213; G2211

== ENCOUNTER → 2024-04-10 10:10 | Outpatient (BNVA) | payer OTHER, SELFPAY | PROVIDERS: PCP Physician Assistant; Visit Provider Internal Medicine Endocrinology, Diabetes & Metabolism | DX: E04.2 Nontoxic multinodular goiter (principal) | CPT/HCPCS: 99212 ==

== ENCOUNTER 2024-04-16 07:49 | Outpatient (REF) | payer OTHER, SELFPAY | END 2024-04-16 07:50 | disposition home or self-care (01) | LOC: HO.HAP 07:49 | PROVIDERS: Visit Provider Physician Assistant | DX: Z46.1 Encounter for fitting and adjustment of hearing aid (principal); H90.6 Mixed conductive and sensorineural hearing loss, bilateral | CPT/HCPCS: V5266 ==

== ENCOUNTER 2024-06-18 09:31 | Outpatient (AMB) | payer OTHER, SELFPAY ==
--- NOTE | 2024-06-18 09:42 | A.OFFPC_ITS ---
Vital Signs 06/18/24 09:43 Height 5 ft 7 in Weight 240 lb 2 oz BMI 37.6 BP 104/64 Blood Pressure Location Lt brachial Position Sitting Pulse 75 Pulse Source Pulse Oximeter Pulse Oximetry (%) 100 Oxygen Delivery Method Room Air Intake Visit Reasons: Annual Exam Intake Note: Patient is here today for a physical. Accompanied by: Self / Same As Patient Allergies Penicillins [PENICILLINS] Allergy (Mild, Verified 06/18/24 10:00) HIVES metformin Allergy (Unknown, Verified 06/18/24 10:00) rash methocarbamol [Robaxin] Allergy (Unknown, Verified 06/18/24 10:00) Unknown nitrofurantoin [From MACROBID] Allergy (Unknown, Verified 06/18/24 10:00) RASH penicillin V Allergy (Unknown, Verified 06/18/24 10:00) hives Sulfa (Sulfonamide Antibiotics) [SULFA (SULFONAMIDE ANTIBIOTICS)] Allergy (Unknown, Verified 06/18/24 10:00) UNKNOWN sulfamethoxazole [From BACTRIM] Allergy (Unknown, Verified 06/18/24 10:00) RASH trimethoprim [From BACTRIM] Allergy (Unknown, Verified 06/18/24 10:00) RASH Medication List - Last Reconciled 06/18/24 by Brayan Damon PA-C albuterol sulfate 90 mcg/actuation 2 puffs inhalation Q6H PRN 30 days amitriptyline 10 mg PO DAILY cholecalciferol (vitamin D3) (Vitamin D3) 25 mcg PO DAILY clonazepam 1 mg PO DAILY PRN cyclobenzaprine 10 mg PO TID PRN 30 days eszopiclone (Lunesta) 3 mg PO BEDTIME ipratropium-albuterol 0.5 mg-3 mg(2.5 mg base)/3 mL 3 mL inhalation Q4-6H PRN lamotrigine 150 mg PO DAILY levofloxacin 750 mg PO DAILY 5 days lisinopril-hydrochlorothiazide 10-12.5 mg 1 tab PO DAILY 90 days loperamide 2 mg PO Q8H meloxicam 15 mg PO DAILY 30 days montelukast 10 mg PO BEDTIME 90 days naproxen 500 mg PO BID PRN 7 days risperidone (Risperdal) 3 mg PO BEDTIME sertraline 100 mg PO DAILY sertraline 50 mg PO QAM sumatriptan succinate 100 mg PO Q2-4H PRN 30 days Tobacco use date assessed: 12/13/23 Dental Screening Dental Screen Date: 12/13/23 HPI Annual Exam HPI Details Patient is a 43 year-old female here today for routine annual physical.? Patient has a past medical history significant for hypertension, obesity, anxiety, bipolar disorder, major depressive disorder, stable asthma, thyroid nodule. Concerns--> reports she has been feeling dizzy over thelast week. Feels dizzy when standing or going up stairs over the last week. She does admit to heavy menstruations lasting up to 11 days over the last few months. Of note does have a history of anemia CHRONIC MEDICAL CONDITIONS .. Obesity: Unfortunately gained weight since last office visit, has found it very difficult to lose weight. She admits that her anxiety and depression is the reason she eats. She is interested medication to help kick start weight loss. .. 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 CT of the auditory canals did show otosclerosis. No cerumen impaction on physical exam today. ? .. ? 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 Most recent vitamin-D level is 17 Patient reports she recently had a thyroid ultrasound showing a nodule was benign.? Has 1 year follow-up for ultrasound. .. ..Migraines:? Patient reports her migrai sumanth are well controlled with the use of sumatriptan 100 mg as needed. ? .. ? Hypertension: Reports BP have been stable. Patient denies any chest pain, shortness of breath or further headaches. She reports that lisinopril 10 mg have been keeping her blood pressure is 120s over 80s. ? . ? Asthma:? She is followed by pulmonology,?she reports her asthma has been fairly well controlled.? Has been transition to Symbicort by her drug discovery informatics specialist. ? Bipolar disorder: Continues to be followed by Psychiatry, feels her mood has been stable. Does report having trouble sleeping though continues with medication. 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 Vaccine:UTD with COVID Vaccine and PCV, up-to-date with tetanus vaccine [facility] Medical History Obesity Vitamin D deficiency Multinodular thyroid Surgical History History of tubal ligation History of section Family History Mother Asthma Diabetes High cholesterol CVD (cardiovascular disease) Father Diabetes Asthma High cholesterol CVD (cardiovascular disease) Sister Diabetes Sister Diabetes Maternal Grandmother Diabetes Breast cancer Ovarian cancer Maternal Grandfather Diabetes Maternal Aunt Breast cancer Ovarian cancer Paternal Grandfather No problems noted. 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 Jae Posadas, Jailene Singh, Jeramy Ro and colleagues, with an educational jeff from [employer]. ACT Questionnaire In the past 4 weeks, how much of the time did your asthma keep you from getting as much done at work, school or at home?: None of the time During the past 4 weeks, how often have you had shortness of breath?: 1-2 times a week During the past 4 weeks, how often did your asthma symptoms wake you up at night or earlier than usual in the morning?: Not at all During the past 4 weeks, how often have you had to use your rescue inhaler or nebulizer medication?: Not at all How would you rate your asthma control during the past 4 weeks?: Completely controlled ACT Interpretation: Negative Score: 24 Review of Systems Const Denies body aches, Denies chills, Denies excessive sweating, Denies fatigue, Denies fever(s) and Denies headache(s) Eyes Denies blurry vision ENT Denies dysphagia, Denies vertigo, Denies dizziness, Denies headache(s), Denies hearing loss and Denies tinnitus Card Denies chest pain, Denies chest pain with activity, Denies syncope, Denies irregular heart rhythm and Denies dyspnea Resp Denies chest congestion, Denies cough, Denies hemoptysis, Denies dyspnea and Denies wheezing GI Denies abdominal pain, Denies melena, Denies hematochezia, Denies coffee ground emesis, Denies dysphagia, Denies diarrhea, Denies nausea and Denies vomiting Denies urinary frequency, Denies dysuria, Denies urinary hesitancy and Denies urinary urgency Musc Denies arthralgias, Denies limited range of motion, Denies muscle cramps and Denies muscle weakness Skin/Breast Denies rash and Denies skin ulcer Neuro Denies Abnormal speech present, Denies confusion, Denies vertigo, Denies dizziness, Denies syncope, Denies headache(s), Denies memory loss and Denies seizure-like activity Psych Denies anxiety, Denies confusion, Denies depression, Denies memory loss, Denies panic attacks and Denies paranoia Endo Denies excessive sweating, Denies fatigue, Denies flushing, Denies polydipsia and Denies polyuria Aller/Immun Denies wheezing Physical exam (Primary Care) Vital Signs: Last Vital Signs Pulse 75 06/18/24 09:43 BP 104/64 06/18/24 09:43 Pulse Ox 100 06/18/24 09:43 Oxygen Delivery Method Room Air 06/18/24 09:43 BMI result Body Mass Index 37.6 Tobacco/Smoking Status: Tobacco use Status Tobacco use date assessed 12/13/23 06/18/24 09:46 Patient Tobacco Use Status Never used Tobacco 06/18/24 09:46 e-Cigarette/Vaping Use Never Used 06/18/24 09:46 Thrive Assessment: Date of Thrive Assessment Date Thrive assessed 12/13/23 06/18/24 09:46 Const General: cooperative, comfortable, no acute distress, alert and awake; No confusion Orientation/consciousness: oriented to person, oriented to place, patient oriented x3 and No confusion HENMT Head: Yes normocephalic Ears: external ears normal and TM's normal bilaterally Face and sinus: No sinus tenderness Mouth: Normal oral and palatal mucosa present and tongue normal Teeth and gingiva: dentition normal and gingiva normal Throat: Yes posterior oropharynx normal, Yes tonsils normal and Yes uvula midline Eyes Conjunctivae: conjunctivae normal Sclerae: sclerae normal Pupils: Equal, round and reactive pupils present EOM: EOMs intact bilaterally Direct Ophthalmoscopy: No no photophobia Neck Neck: Yes no lymphadenopathy, No tender and Yes no JVD Thyroid: Thyroid normal Carotids: no bruits Chest Chest palpation & inspection: no tenderness Resp Effort & Inspection: normal respiratory effort, no audible wheezes, not labored and no stridor Auscultation: no crackles, no rales, no rhonchi and no wheezes Cardio Jugular venous distension: no JVD Rate: regular rate, not bradycardic and not tachycardic Rhythm: regular rhythm Bruits: no carotid bruits Peripheral pulses: Peripheral pulses 2+ throughout GI Inspection: Yes normal to inspection, No abdominal wall ecchymosis and No visible herniation Palpation (GI): Soft to palpation, nontender, no guarding, not rigid and No hepatosplenomegaly present Auscultation: normoactive bowel sounds General: Yes no CVA tenderness Back/Spine/Pelvis Back: no CVA tenderness and No back tenderness Cervical Spine: cervical ROM normal Thoracic/Lumbar Spine: thoracic and lumbar spine normal to inspection, straight leg raise negative bilaterally, No thoraco-lumbar ROM limited and No lumbar spinal tenderness Skin Lesions: no lesions Rashes: no rashes Wounds: no wounds Neuro General: oriented to person, oriented to place, patient oriented x3, CN's II-XI intact bilaterally and No confusion Cranial nerves: Yes Equal, round and reactive pupils present and Yes Normal a ccommodation reflex present Cognition (Neuro): normal cognition Speech: No Abnormal speech present Gait exam (Neuro): Normal gait present Motor exam (neuro): 5/5 motor strength present throughout Extrem Right upper extremity: full ROM; no cyanosis Left upper extremity: full ROM; no cyanosis Right lower extremity: no edema Left lower extremity: no edema Psych Appearance: grossly normal Mental Status: mental status grossly normal Affect: normal affect Attitude: cooperative Thought process: Normal thought process present Assessment and Plan Assessment & Plan (1) Annual physical exam: Code(s): Z00.00 - Encounter for general adult medical examination without abnormal findings (2) HTN (hypertension): Code(s): I10 - Essential (primary) hypertension Qualifiers: Hypertension type: primary hypertension Qualified Code(s): I10 - Essential (primary) hypertension Plan: Patient's blood pressure on lower side today. Does report feeling somewhat dizzy over the last week. Will discontinue hydrochlorothiazide keep her on single agent lisinopril 10 mg. Goal blood pressures to be below 140/90 and above 100/60. (3) Dizziness: Code(s): R42 - Dizziness and giddiness Plan: As above patient does report feeling somewhat dizzy over last week. She does admit to heavy extended menstruation days recently. She believes she is perimenopausal. Will follow-up with her machine adjuster. Will check her CBC and iron studies. (4) Anemia: Code(s): D64.9 - Anemia, unspecified Qualifiers: Anemia type: iron deficiency Iron deficiency anemia type: chronic blood loss Qualified Code(s): D50.0 - Iron deficiency anemia secondary to blood loss (chronic) Plan: As above (5) Asthma: Code(s): J45.909 - Unspecified asthma, uncomplicated Qualifiers: Asthma severity: moderate Asthma persistence: persistent Asthma complication type: uncomplicated Qualified Code(s): J45.40 - Moderate persistent asthma, uncomplicated Plan: Patient reports her asthma has been well controlled with current p.r.n. use of her albuterol inhaler . She denies any recent asthma exacerbations or nighttime awakenings with asthma symptoms. Orders: Orders Complete Blood Count no Diff 06/18/24 R42 - Dizziness and giddiness Follicle Stimulating Hormone 06/18/24 N91.2 - Amenorrhea, unspecified IRON PROFILE 06/18/24 D50.9 - Iron deficiency anemia, unspecified, R42 - Dizziness and giddiness Medications: New lisinopril 10 mg PO DAILY 90 tabs 1RF 90 days I10 - Essential (primary) hypertension Changed From albuterol sulfate 90 mcg/actuation 2 puffs inhalation Q6H PRN 6.7 grams 0RF shortness of breath or wheezing To albuterol sulfate 90 mcg/actuation 2 puffs inhalation Q6H PRN 6.7 grams 3RF shortness of breath or wheezing 30 days Discontinued lisinopril-hydrochlorothiazide 10-12.5 mg Discontinued Reason: Doctor's Order 1 tab PO DAILY 90 days 90 tabs 1RF H10.10 - Acute atopic conjunctivitis, unspecified eye, I10 - Essential (primary) hypertension, J30.9 - Allergic rhinitis, unspecified Coding Level of Care Code Est Pt Prev Care 40-64y(03812) Diagnoses Annual physical exam Z00.00 Primary hypertension I10 Hypertension type: primary hypertension Dizziness R42 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
[2024-06-18 09:43] VITALS: BP 104/64; PULSE 75; O2SAT 100; BMI 37.6
== END 2024-06-18 10:29 | disposition home or self-care (01) ==
PROVIDERS: PCP Physician Assistant; Visit Provider Physician Assistant
DX: Z00.00 Encounter for general adult medical examination without abnormal findings (principal); I10 Essential (primary) hypertension; R42 Dizziness and giddiness; D50.0 Iron deficiency anemia secondary to blood loss (chronic); J45.40 Moderate persistent asthma, uncomplicated
CPT/HCPCS: 99396

== ENCOUNTER 2024-06-18 10:36 | Outpatient (REF) | payer OTHER, SELFPAY | END 2024-06-18 10:37 | disposition home or self-care (01) | LOC: HO.HAP 10:36 | PROVIDERS: Visit Provider Physician Assistant | DX: Z46.1 Encounter for fitting and adjustment of hearing aid (principal); H90.6 Mixed conductive and sensorineural hearing loss, bilateral | CPT/HCPCS: V5266 ==

== ENCOUNTER 2024-06-19 08:32 | Outpatient (REF) | payer OTHER, SELFPAY ==
[2024-06-19 10:43] LABS: Hematocrit 30.2 % (37.0-47.0); Hemoglobin 10.5 g/dl (12.0-16.0); Mean Corpuscular HGB Conc 34.8 g/dl (31.0-35.0); Mean Corpuscular Volume 89.1 fL (80.0-98.0); Mean Platelet Volume 10.7 fL (9.4-12.3); Platelet Count 228 X10*3/uL (160-400); Red Blood Count 3.39 X10*6/uL (4.20-5.50); White Blood Count 6.5 X10*3/uL (4.8-10.8)
[2024-06-19 11:25] LABS: Iron 96 mcg/dL (30-160); Percent Iron Saturation 34 % (15-50); Total Iron Binding Capacity 286 mcg/dL (228-428); Unsaturated Iron Binding 190 ug/dL
[2024-06-20 16:04] LABS: Follicle Stimulating Hormone 17.6 mIU/mL
== END 2024-06-19 08:33 | disposition home or self-care (01) ==
LOC: HO.LAB 08:32
PROVIDERS: PCP Physician Assistant; Visit Provider Physician Assistant
DX: D50.9 Iron deficiency anemia, unspecified (principal); R42 Dizziness and giddiness; N91.2 Amenorrhea, unspecified
CPT/HCPCS: 36415; 83001; 83540; 85027

== ENCOUNTER 2024-07-24 14:16 | Outpatient (REF) | payer OTHER, SELFPAY | END 2024-07-24 14:17 | disposition home or self-care (01) | LOC: HO.HAP 14:16 | PROVIDERS: Visit Provider Physician Assistant | DX: Z46.1 Encounter for fitting and adjustment of hearing aid (principal); H90.0 Conductive hearing loss, bilateral | CPT/HCPCS: V5266 ==

== ENCOUNTER 2024-08-29 12:55 | Outpatient (REF) | payer OTHER, SELFPAY | END 2024-08-29 12:56 | disposition home or self-care (01) | LOC: HO.HAP 12:55 | PROVIDERS: Visit Provider Physician Assistant | DX: Z46.1 Encounter for fitting and adjustment of hearing aid (principal); H90.6 Mixed conductive and sensorineural hearing loss, bilateral | CPT/HCPCS: V5266 ==

== ENCOUNTER 2024-09-16 10:45 | Outpatient (REF) | payer OTHER, SELFPAY ==
--- NOTE | ~2024-09-16 | MM_ITS ---
EXAMINATION: MM SCREENING DIGITAL BREAST TOMOSYNTHESIS, BILATERAL CLINICAL INFORMATION: Screening. Asymptomatic. COMPARISON: Mammography: Comparison is made with available priors TECHNIQUE: Digital breast mammography with tomosynthesis is performed in both the craniocaudal and mediolateral oblique views along with computer-aided detection (CAD). FINDINGS: There are scattered areas of fibroglandular density (ACR BI-RADS breast composition Category b). There are no significant masses, abnormal calcifications, or other abnormalities. MM/MM tomosynthesis screening BI IMPRESSION: No mammographic evidence of malignancy. ASSESSMENT: BI-RADS BI-RADS 1 - Negative RECOMMENDATION: Routine annual mammography screening. 1 year F/U This examination should not preclude the clinical evaluation of a suspicious palpable abnormality. This patient's information was entered into a reminder system with a target due date for their next mammogram. Electronically signed by: Evelyn Pablo DO 09/25/2024 02:18 PM ALEJANDRA
== END 2024-09-16 10:46 | disposition home or self-care (01) ==
LOC: HO.MAMMO 10:45
PROVIDERS: Visit Provider Physician Assistant
DX: Z12.31 Encounter for screening mammogram for malignant neoplasm of breast (principal)
CPT/HCPCS: 77063; 77067

== ENCOUNTER → 2024-09-16 11:00 | Outpatient (BNV) | payer OTHER, SELFPAY | PROVIDERS: Visit Provider Internal Medicine | DX: Z12.31 Encounter for screening mammogram for malignant neoplasm of breast (principal) | CPT/HCPCS: 77063; 77067 ==

== ENCOUNTER 2024-12-05 14:48 | Outpatient (AMB) | payer OTHER, SELFPAY ==
--- NOTE | 2024-12-05 14:59 | A.OFFVIS_ITS ---
Intake Visit Reasons: OV Bilateral Knee Injections Intake Note: Rashmi is a 44 year old female who presents today for bilateral knee injections. Allergies Penicillins [PENICILLINS] Allergy (Mild, Verified 06/18/24 10:00) HIVES metformin Allergy (Unknown, Verified 06/18/24 10:00) rash methocarbamol [Robaxin] Allergy (Unknown, Verified 06/18/24 10:00) Unknown nitrofurantoin [From MACROBID] Allergy (Unknown, Verified 06/18/24 10:00) RASH penicillin V Allergy (Unknown, Verified 06/18/24 10:00) hives Sulfa (Sulfonamide Antibiotics) [SULFA (SULFONAMIDE ANTIBIOTICS)] Allergy (Unknown, Verified 06/18/24 10:00) UNKNOWN sulfamethoxazole [From BACTRIM] Allergy (Unknown, Verified 06/18/24 10:00) RASH trimethoprim [From BACTRIM] Allergy (Unknown, Verified 06/18/24 10:00) RASH HPI HPI OV Bilateral Knee Injections: Details: 44-year-old woman with bilateral knee osteoarthritis who has been getting injections regularly. I have tried to get her to decrease the frequency of thes e injections and her last injection was a year ago. He is working on weight loss and losing weight but still has pain at the end of the day and with certain activities especially stairs or deep squatting. [facility] Medical History Obesity Vitamin D deficiency Multinodular thyroid Surgical History History of tubal ligation History of section Family History Mother Asthma Diabetes High cholesterol CVD (cardiovascular disease) Father Diabetes Asthma High cholesterol CVD (cardiovascular disease) Sister Diabetes Sister Diabetes Maternal Grandmother Diabetes Breast cancer Ovarian cancer Maternal Grandfather Diabetes Maternal Aunt Breast cancer Ovarian cancer Paternal Grandfather No problems noted. 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 Cognitive needs: No Hearing needs: Yes Vision needs: Yes Physical Exam Const General: no acute distress, alert and awake Orientation/consciousness: patient oriented x3 HEENT Head: Yes normocephalic and Yes atraumatic Eyes EOM: EOMs intact bilaterally Resp Effort & Inspection: normal respiratory effort and able to speak in complete sentences Cardio Jugular venous distension: no JVD Skin General skin exam: turgor normal Rashes: no rashes Neuro General: patient oriented x3 Extrem Other: TTP medial compartment bilaterally Full ROM No effusion Psych Appearance: grossly normal Affect: normal affect Attitude: cooperative Office Procedures Joint Inj/Aspir; Non-Pain Clin Joint Injection/Drain Details: Injected 1 mL of Decadron and 3 mL 1% lidocaine and 3 mL of 0.25% Marcaine. Site was prepped using aseptic technique. Patient tolerated the procedure well. Shoulders, Hips, Knees, Knee Large Joint Injection : Bilateral Knee Coding Procedure code (CPT) selection complete Assessment & Plan Assessment & Plan (1) Bilateral primary osteoarthritis of knee: Code(s): M17.0 - Bilateral primary osteoarthritis of knee Category: Medical Plan: I injected bilateral knees today. Her last injections were a year ago. She is doing pretty well. Continuing trying to get healthy in his weight. Coding Level of Care Code Est Pt Level 3 (04074) Diagnoses Bilateral primary osteoarthritis of knee M17.0 CPT Codes Shoulders, Hips, Knees, - Knee Large Joint Injection : Bilateral Knee ([id number])
== END 2024-12-05 15:15 | disposition home or self-care (01) ==
LOC: HO.HOS 14:48
PROVIDERS: PCP Physician Assistant; Visit Provider Orthopaedic Surgery
DX: M17.0 Bilateral primary osteoarthritis of knee (principal)
CPT/HCPCS: 20610; 99213

== ENCOUNTER → 2024-12-05 14:48 | Outpatient (BNVA) | payer OTHER, SELFPAY | PROVIDERS: PCP Physician Assistant; Visit Provider Orthopaedic Surgery | DX: M17.0 Bilateral primary osteoarthritis of knee (principal) | CPT/HCPCS: 20610; 99212; J0665; J1100; J2003 ==

== ENCOUNTER 2024-12-12 09:15 | Outpatient (AMB) | payer OTHER, SELFPAY ==
[2024-12-12 09:20] VITALS: BP 128/78; PULSE 87; TEMP 36.1; O2SAT 99; BMI 39.0
--- NOTE | 2024-12-12 09:20 | MHC.PC.OV ---
Vital Signs 12/12/24 09:20 Height 5 ft 7 in Weight 249 lb BMI 39.0 BP 128/78 Blood Pressure Location Lt brachial Position Sitting Pulse 87 Pulse Source Pulse Oximeter Temp 96.9 F Temp Source Temporal Artery Scan Pulse Oximetry (%) 99 Oxygen Delivery Method Room Air Intake Visit Reasons: f/u HTN [employer] Director Required: No Accompanied by: Self / Same As Patient Allergies Penicillins [PENICILLINS] Allergy (Mild, Verified 12/12/24 09:44) HIVES metformin Allergy (Unknown, Verified 12/12/24 09:44) rash methocarbamol [Robaxin] Allergy (Unknown, Verified 12/12/24 09:44) Unknown nitrofurantoin [From MACROBID] Allergy (Unknown, Verified 12/12/24 09:44) RASH penicillin V Allergy (Unknown, Verified 12/12/24 09:44) hives Sulfa (Sulfonamide Antibiotics) [SULFA (SULFONAMIDE ANTIBIOTICS)] Allergy (Unknown, Verified 12/12/24 09:44) UNKNOWN sulfamethoxazole [From BACTRIM] Allergy (Unknown, Verified 12/12/24 09:44) RASH trimethoprim [From BACTRIM] Allergy (Unknown, Verified 12/12/24 09:44) RASH Medication List - Last Reconciled 12/12/24 by Brayan Damon PA-C albuterol sulfate 90 mcg/actuation 2 puffs inhalation Q6H PRN 30 days amitriptyline 10 mg PO DAILY cholecalciferol (vitamin D3) (Vitamin D3) 25 mcg PO DAILY clonazepam 1 mg PO DAILY PRN cyclobenzaprine 10 mg PO TID PRN 30 days eszopiclone (Lunesta) 3 mg PO BEDTIME ipratropium-albuterol 0.5 mg-3 mg(2.5 mg base)/3 mL 3 mL inhalation Q4-6H PRN lamotrigine 150 mg PO DAILY lisinopril 10 mg PO DAILY 90 days loperamide 2 mg PO Q8H meloxicam 15 mg PO DAILY 30 days montelukast 10 mg PO BEDTIME 90 days risperidone (Risperdal) 3 mg PO BEDTIME sertraline 100 mg PO DAILY sertraline 50 mg PO QAM sumatriptan succinate 100 mg PO Q2-4H PRN 30 days Tobacco use date assessed: 12/12/24 Dental Screening Dental Screen Date: 12/13/23 HPI f/u HTN HPI Details Patient is a 44 year-old female here today for follow-up visit?. Patient has a past medical history significant for hypertension, obesity, anxiety, bipolar disorder, major depressive disorder, stable asthma, thyroid nodule. Concerns--> cervical arthritis and associated neck and shoulder pain. Her symptoms have been exacerbated over the past month, with pain radiating down her arm. The patient also reports headaches, questioning a possible link to her cervical condition. CHRONIC MEDICAL CONDITIONS .. Class 2 Obesity: Unfortunately gained weight since last office visit, has found it very difficult to lose weight. She admits that her anxiety and depression is the reason she eats. She is interested medication to help kick start weight loss. .. 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 CT of the auditory canals did show otosclerosis. No cerumen impaction on physical exam today. ? .. ? Vit D Def/ thyroid nodules: Started on vitamin-D from her cone former. Most recent vitamin-D level is 17 Patient reports she recently had a thyroid ultrasound showing a nodule was benign.? Has 1 year follow-up for ultrasound. .. ..Migraines:? Patient reports her migraines are well controlled with the use of sumatriptan 100 mg as needed. ? .. ? Hypertension: Reports BP have been stable. Patient denies any chest pain, shortness of breath or further headaches. She reports that lisinopril 10 mg have been keeping her blood pressure is 120s over 80s. ? . ? Asthma:? She is followed by pulmonology,?she reports her asthma has been fairly well controlled.? Has been transition to Symbicort by her accountant bookkeeper. ? Bipolar disorder: Continues to be followed by Psychiatry, feels her mood has been stable. Does report having trouble sleeping though continues with medication. [facility] Medical History (Updated 12/12/24 @ 12:59 by Brayan Damon PA-C) Vitamin D deficiency Multinodular thyroid Surgical History History of tubal ligation History of section Family History Mother Asthma Diabetes High cholesterol CVD (cardiovascular disease) Father Diabetes Asthma High cholesterol CVD (cardiovascular disease) Sister Diabetes Sister Diabetes Maternal Grandmother Diabetes Breast cancer Ovarian cancer Maternal Grandfather Diabetes Maternal Aunt Breast cancer Ovarian cancer Paternal Grandfather No problems noted. 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 1. Little interest or pleasure in doing things: not at all 2. Feeling down, depressed, or hopeless: not at all 3. Trouble falling or staying asleep, or sleeping too much: not at all 4. Feeling tired or having little energy: not at all 5. Poor appetite or overeating: not at all 6. Feeling bad about yourself - or that you are a failure or have let yourself or your family down: not at all 7. Trouble concentrating on things, such as reading the newspaper or watching television: not at all 8. Moving or speaking so slowly that other people could have noticed. Or the opposite - being so fidgety or restless that you have been moving around a lot more than usual: not at all 9. Thoughts that you would be better off or of hurting yourself in some way: not at all Total score: 0 Depression Screening Interpretation: Negative Depression Screening Done: Yes 96303 - PHQ-9 Billing: Yes Source: Developed by Drs. Jae Posadas, Jailene Singh, Jeramy Ro and colleagues, with an educational jeff from [employer]. Thrive Questionnaire Date Thrive assessed: 12/12/24 I am a: Patient What is your living situation today?: I have a steady place to live Within the past 12 months, did the food you bought not last and you didn't have the money to get more?: Never true Within the past 12 months, did you worry whether your food would run out before you got money to buy more?: Never true Do you have trouble paying for medicines?: No Do you have trouble getting transportation to medical appointments?: No Do you have trouble paying your heating and electricity bill?: No Do you have trouble taking care of your child, family member or friend?: No Do you have trouble with day-to-day activities such as bathing, preparing meals, shopping, managing finances, etc.?: No Are you currently unemployed and looking for a job?: No Are you interested in more education?: No Please select the resources that you would like help with: None Currently or been in a relationship where the following occur: No concerns reported THRIVE Score: 0 AUDIT C Alcohol Use Questionnaire (AUDIT-C) 1. How often do you have a drink containing alcohol?: Never 3. How often do you have six or more drinks on one occasion?: Never Total Score: 0 SHERRI-7 AMB Questionnaire SHERRI-7 Date SHERRI - 7 assessed: 12/12/24 Feeling nervous, anxious, or on edge: 3 = Nearly every day Not being able to stop or control worryin = Nearly every day Worrying too much about different things: 3 = Nearly every day Trouble relaxin = Nearly every day Being so restless that it is hard to sit still: 2 = More than half the days Becoming easily annoyed or irritable: 3 = Nearly every day Feeling afraid as if something awful might happen: 3 = Nearly every day Total SHERRI-7 score (0-4 normal; 5-9 mild; 10-14 moderate; 15-21 severe): 20 Source: Developed by Drs. Jae Posadas, Jailene Singh, Jeramy Ro and colleagues, with an educational jeff from [employer]. SHERRI-7 Assessment Billing SHERRI-7 Assessment Tool: SHERRI-7 Assessment 79493 Review of Systems Const Denies headache(s) Eyes Denies loss of vision ENT Denies vertigo, Denies dizziness, Denies headache(s) and Denies sore throat Card Denies chest pain, Denies leg edema and Denies lightheadedness Resp Denies cough, Denies hemoptysis and Denies wheezing GI Denies abdominal pain, Denies melena, Denies constipation, Denies diarrhea and Denies vomiting Denies urinary frequency, Denies dysuria and Denies urinary urgency Musc Denies arthralgias, Denies joint swelling, Denies numbness and Denies tingling Neuro Denies Abnormal speech present, Denies behavioral changes, Denies vertigo, Denies dizziness, Denies headache(s), Denies loss of vision, Denies memory loss, Denies numbness and Denies tingling Psych Denies anxiety, Denies behavioral changes, Denies depression, Denies memory loss and Denies panic attacks Cesar/Lymph Denies easy bleeding and Denies easy bruising Aller/Immun Denies wheezing Physical exam (Primary Care) Vital Signs: Last Vital Signs Temp 96.9 F 12/12/24 09:20 Pulse 87 12/12/24 09:20 BP 128/78 12/12/24 09:20 Pulse Ox 99 12/12/24 09:20 Oxygen Delivery Method Room Air 12/12/24 09:20 BMI result Body Mass Index 39.0 BMI Assessment/Plan discussion: High BMI High, discussed plan: lifestyle, weight reduction, dietary and physical activity Tobacco/Smoking Status: Tobacco use Status Tobacco use date assessed 12/12/24 12/12/24 09:25 Patient Tobacco Use Status Never used Tobacco 12/12/24 09:25 e-Cigarette/Vaping Use Never Used 12/12/24 09:25 PHQ-9: PHQ-9 Score PHQ-9: Total score 0 12/12/24 09:51 Depression Screening Interpretation: Negative Thrive Assessment: Date of Thrive Assessment Date Thrive assessed 12/12/24 12/12/24 09:25 Currently or been in a relationship where the following occur: No concerns reported Const General: healthy appearing, no acute distress, alert and awake Nutritional Appearance: well nourished Orientation/consciousness: oriented to person, oriented to place and oriented to time HENMT Ears: TM's normal bilaterally General nose exam: Normal nasal mucous membranes and turbinates present Eyes Conjunctivae: conjunctivae normal Sclerae: sclerae normal Pupils: Equal, round and reactive pupils present Neck Neck: Yes no lymphadenopathy and Yes no JVD Thyroid: Thyroid normal Carotids: no bruits Resp Effort & Inspection: normal respiratory effort and not tachypneic Auscultation: no crackles, no rales, no rhonchi and no wheezes Cardio Rate: regular rate Rhythm: regular rhythm Heart sounds: no murmurs and normal S1 and S2 GI Palpation (GI): Soft to palpation, nontender, no hepatomegaly and no splenomegaly Auscultation: normal bowel sounds Skin General skin exam: no rashes or lesions noted and dry skin Neuro General: oriented to person, oriented to place and oriented to time Cranial nerves: Yes Equal, round and reactive pupils present Speech: No Abnormal speech present Gait exam (Neuro): Normal gait present Motor exam (neuro): no tremor noted Extrem Right upper extremity: full ROM Left upper extremity: full ROM Right lower extremity: full ROM; no edema Left lower extremity: full ROM; no edema Psych Mental Status: mental status grossly normal Speech and movement: Normal speech and movement present Affect: normal affect Attitude: cooperative Thought process: Normal thought process present Coding Level of Care Code Est Pt Level 4 (99411) Diagnoses Cervical spine arthritis M47.812 Primary hypertension I10 Hypertension type: primary hypertension Impaired glucose metabolism R73.09 Class 2 obesity E66.812 Multinodular thyroid E04.2 Otosclerosis of both ears H80.93 Laterality: bilateral Additional Codes SHERRI-7 Assessment Billing - SHERRI-7 Assessment Tool: SHERRI-7 Assessment 34574 ([id number]) PHQ-9 - 30136 - PHQ-9 Billing: Yes ([id number]) Assessment & Plan Assessment & Plan (1) Cervical spine arthritis: Code(s): M47.812 - Spondylosis without myelopathy or radiculopathy, cervical region Category: Medical Plan: Recommend cervical spine x-ray for current neck pain evaluation. - Initiate physical therapy for cervical arthritis and associated migraine relief. - Prescribe non-addictive muscle relaxer, consider naproxen or ibuprofen for pain management. (2) HTN (hypertension): Code(s): I10 - Essential (primary) hypertension Category: Medical Qualifiers: Hypertension type: primary hypertension Qualified Code(s): I10 - Essential (primary) hypertension Plan: Patient's blood pressure acceptable today in office. Will continue her current dose of antihypertensive medication with goal blood pressure to remain below 140/90 (3) Impaired glucose metabolism: Code(s): R73.09 - Other abnormal glucose Category: Medical Plan: Patient continues to work on lifestyle and dietary modifications to reduce her blood sugars. Will continue to follow fasting blood sugar and A1c. (4) Class 2 obesity: Code(s): E66.812 - Obesity, class 2 Category: Medical Plan: Patient does understand her BMI is over 35 and will continue trying to work on being more physically active and adapting to better eating habits to reduce her weight. (5) Multinodular thyroid: Code(s): E04.2 - Nontoxic multinodular goiter Category: Medical Plan: Continues to follow Endocrinology. Is under surveillance for her thyroid nodules. (6) Otosclerosis: Code(s): H80.90 - Unspecified otosclerosis, unspecified ear Category: Medical Qualifiers: Laterality: bilateral Qualified Code(s): H80.93 - Unspecified otosclerosis, bilateral Plan: Now has a right-sided hearing aid which has been very helpful for her. Orders: Orders Hemoglobin A1c Today R73.09 - Other abnormal glucose Vitamin D 25-OH Total Today E55.9 - Vitamin D deficiency, unspecified Vitamin B12 and Folate Today D50.0 - Iron deficiency anemia secondary to blood loss (chronic), E53.8 - Deficiency of other specified B group vitamins XR cervical spine 4V Today M47.812 - Spondylosis without myelopathy or radiculopathy, cervical region Comprehensive [place]. Panel Fast Today R73.09 - Other abnormal glucose Complete Blood Count no Diff Today D50.0 - Iron deficiency anemia secondary to blood loss (chronic) IRON PROFILE Today D50.0 - Iron deficiency anemia secondary to blood loss (chronic), D50.9 - Iron deficiency anemia, unspecified PT Evaluation and Treatment Today M47.812 - Spondylosis without myelopathy or radiculopathy, cervical region Medications: New baclofen 10 mg PO BID PRN 30 tabs 1RF muscle spasm 15 days M47.812 - Spondylosis without myelopathy or radiculopathy, cervical region ibuprofen 800 mg PO DAILY 30 tabs 2RF 30 days M47.812 - Spondylosis without myelopathy or radiculopathy, cervical region Refilled amitriptyline 10 mg PO DAILY 90 tabs 2RF H90.3 - Sensorineural hearing loss, bilateral Discontinued cyclobenzaprine Discontinued Reason: Doctor's Order 10 mg PO TID 30 days PRN 90 tabs 3RF muscle spasm M51.36 - Other intervertebral disc degeneration, lumbar region meloxicam Discontinued Reason: Doctor's Order 15 mg PO DAILY 30 days 30 tabs 3RF M17.0 - Bilateral primary osteoarthritis of knee
== END 2024-12-12 10:12 | disposition home or self-care (01) ==
PROVIDERS: PCP Physician Assistant; Visit Provider Physician Assistant
DX: I10 Essential (primary) hypertension (principal); M47.812 Spondylosis without myelopathy or radiculopathy, cervical region; E66.812 Obesity, class 2; Z68.39 Body mass index [BMI] 39.0-39.9, adult; R73.09 Other abnormal glucose; E04.2 Nontoxic multinodular goiter; H80.93 Unspecified otosclerosis, bilateral

== ENCOUNTER → 2024-12-12 09:15 | Outpatient (BNVA) | payer OTHER, SELFPAY | PROVIDERS: PCP Physician Assistant; Visit Provider Physician Assistant | DX: M47.812 Spondylosis without myelopathy or radiculopathy, cervical region (principal); I10 Essential (primary) hypertension; R73.09 Other abnormal glucose; E04.2 Nontoxic multinodular goiter; H80.93 Unspecified otosclerosis, bilateral; E66.812 Obesity, class 2 | CPT/HCPCS: 96127; 99212 ==

== ENCOUNTER 2024-12-18 10:35 | Outpatient (REF) | payer OTHER, SELFPAY ==
--- NOTE | ~2024-12-18 | XR_ITS ---
CLINICAL HISTORY: M47.812 - Spondylosis without myelopathy or radiculopathy, cervical region 5 views cervical spine Comparison: None Findings: Normal vertebral body alignment. No acute fractures or dislocation. There is multilevel disc space narrowing. There are small anterior and posterior osteophytes. There is mild cervical kyphosis. No foraminal stenosis. Prevertebral soft tissues within normal limits. IMPRESSION: Multilevel spondylosis, no acute fractures Mild cervical kyphosis This document has been electronically signed by: Jae Perdomo MD on 12/19/2024 08:50:12
== END 2024-12-18 10:36 | disposition home or self-care (01) ==
LOC: HO.XRAY 10:35
PROVIDERS: PCP Physician Assistant; Visit Provider Physician Assistant
DX: M47.812 Spondylosis without myelopathy or radiculopathy, cervical region (principal)
CPT/HCPCS: 72050

== ENCOUNTER → 2024-12-18 10:42 | Outpatient (BNV) | payer OTHER, SELFPAY | PROVIDERS: PCP Physician Assistant; Visit Provider Radiology Diagnostic Radiology | DX: M47.812 Spondylosis without myelopathy or radiculopathy, cervical region (principal) | CPT/HCPCS: 72050 ==

== ENCOUNTER 2025-01-31 10:27 | Outpatient (REF) | payer OTHER, SELFPAY ==
[2025-01-31 11:25] LABS: Hematocrit 23.9 % (37.0-47.0); Hemoglobin 8.3 g/dl (12.0-16.0); Mean Corpuscular HGB Conc 34.7 g/dl (31.0-35.0); Mean Corpuscular Hemoglobin 29.4 pg (27.0-33.0); Mean Corpuscular Volume 84.8 fL (80.0-98.0); Mean Platelet Volume 10.4 fL (9.4-12.3); Platelet Count 217 X10*3/uL (160-400); Red Blood Count 2.82 X10*6/uL (4.20-5.50); White Blood Count 8.3 X10*3/uL (4.8-10.8)
[2025-01-31 11:33] LABS: Estimated Average Glucose 114 mg/dL; Hemoglobin A1C 85.4235 umol/L; Hemoglobin A1c % 5.6 % (<6.0); Total Hemoglobin (HGBA1C) 2268.3593 umol/L
[2025-01-31 11:34] LABS: Appearance Urine Clear; Color Urine Yellow; Glucose Urine UA Negative (Negative); Leukocyte Esterase Urine Trace (Negative); Nitrite Urine Negative (Negative); Specific Gravity - Urine >= 1.030 (1.005-1.025); UMIC TRIGGER UACC YES; Urine Blood Large (3+) (Negative); Urine Ketones Negative (Negative); Urine Protein Negative (Neg-Trace)
[2025-01-31 11:45] LABS: Bacteria Urine None Seen (None Seen); Hyaline Casts Urine 0-2 /LPF (0-2); UACC Culture Trigger YES
[2025-01-31 11:51] LABS: Alanine Aminotransferase 14 U/L (0-31); Albumin Level 3.6 g/dL (3.5-5.0); Alkaline Phosphatase 56 U/L (39-117); Anion Gap 8 (12-20); Aspartate Amino Transferase 20 U/L (5-31); Bilirubin Total 0.3 mg/dL (0.0-1.0); Blood Urea Nitrogen 21 mg/dL (9-16); Calcium 9.4 mg/dL (8.4-10.2); Carbon Dioxide 26 mmol/L (22-29); Chloride 108 mmol/L (96-108); Estimated Glomerular Filt Rate > 60; Glucose Fasting 88 mg/dL (60-99); Iron 29 mcg/dL (30-160); Percent Iron Saturation 10 % (15-50); Sodium 138 mmol/L (135-145); Total Iron Binding Capacity 289 mcg/dL (228-428); Total Protein 6.3 g/dL (6.5-8.0); Unsaturated Iron Binding 260 ug/dL
[2025-01-31 12:09] LABS: Vitamin D 25-OH Total 27.3 ng/mL (>30)
[2025-01-31 12:10] LABS: Creatinine Urine 273.68 mg/dL; Microalbum/Creatinine Ratio Ur 6.2 ug/mg cr (<30)
[2025-01-31 12:13] LABS: Vitamin B12 541 pg/mL (200-900)
== END 2025-01-31 10:28 | disposition home or self-care (01) ==
LOC: HO.LAB 10:27
PROVIDERS: PCP Physician Assistant; Visit Provider Physician Assistant
DX: I10 Essential (primary) hypertension (principal); R73.09 Other abnormal glucose; E55.9 Vitamin D deficiency, unspecified; D50.9 Iron deficiency anemia, unspecified; D50.0 Iron deficiency anemia secondary to blood loss (chronic); E53.8 Deficiency of other specified B group vitamins; R30.0 Dysuria; R42 Dizziness and giddiness
CPT/HCPCS: 36415; 80053; 81001; 82043; 82306; 82570; 82607; 82746; 83036; 83540; 85027; 87086

== ENCOUNTER 2025-02-05 13:35 | Outpatient (REF) | payer OTHER, SELFPAY ==
--- NOTE | 2025-02-05 14:29 | MHC.AU.HA3 ---
Hearing Instrument Follow-Up- Binaural Date of Visit: 02/05/25 Right Ear: Make, Model, Color, Serial Number: Tisha Churchill M [id number] SN: [id number] Color: [place] Fagot Heater Helper Repair Warranty: 01/06/2022 [employer] Heater Helper Loss and Damage Warranty: 01/06/2022 [facility] Service Plan: exp Battery Size: 312 Talent Specialist/Slim Tube: 0S Earmold/Dome/CShell/SlimTip:Slim tip silicone SN: [id number] Marcella: 11/13/2023 Old SN: [id number] Type of Wax Guard: CeruShield Dispensed By: [facility] Date of Fittin10/24/2018 Left Ear: Horace, Model, Color, Serial Number: Jesica Márquez [id number] SN: [id number] Color: [place] F[employer]ot Heater Helper Repair Warranty: 01/06/2022 [employer]agot Heater Helper Loss and Damage Warranty: 01/06/2022 [facility] Service Plan: exp Battery Size: 312 Talent Specialist/Slim Tube: 0S Earmold/Dome/CShell/SlimTip: Slim Tip Silicone SN: [id number] Marcella: 11/13/2023 [place] SN: [id number] Type of Wax Guard: CeruShield Dispensed By: [facility] Date of Fittin10/24/2018 Follow-Up Summary: Reports right aid has not been working for the last couple days. Found fire protection engineering technician occluded, could not replace wax guard due to cerushield wax guard misaligned in fire protection engineering technician. Replaced fire protection engineering technician, listening check positive. Cleaned both aids and earmolds, replaced left wax guard. Listening check positive. Recommendations: Recommendations: Hearing instrument follow-up or maintenance as needed. Diagnosis Code(s): Primary Diagnosis: H90.6 Mixed Hearing Loss, Bilateral Signature: Provider: Lila Grijalva, [facility]
== END 2025-02-05 13:36 | disposition home or self-care (01) ==
LOC: HO.HAP 13:35
PROVIDERS: Visit Provider Physician Assistant
DX: Z46.1 Encounter for fitting and adjustment of hearing aid (principal); H90.6 Mixed conductive and sensorineural hearing loss, bilateral
CPT/HCPCS: 92593; V5266; V5299

== ENCOUNTER 2025-02-13 09:21 | Outpatient (AMB) | payer OTHER, SELFPAY ==
--- NOTE | 2025-02-13 09:30 | A.OFFVIS_ITS ---
Vital Signs 02/13/25 09:35 Height 5 ft 7 in Weight 243 lb 2.718 oz BMI 38.1 BP 110/74 Blood Pressure Location Lt brachial Position Sitting Pulse 52 Pulse Source Pulse Oximeter Pulse Oximetry (%) 100 Oxygen Delivery Method Room Air Intake Visit Reasons: MNG Intake Note: Patient present today for NTMNG follow up visit. First Assistant Manager Required: No Accompanied by: Self / Same As Patient Allergies Penicillins [PENICILLINS] Allergy (Mild, Verified 02/13/25 09:35) HIVES metformin Allergy (Unknown, Verified 02/13/25 09:35) rash methocarbamol [Robaxin] Allergy (Unknown, Verified 02/13/25 09:35) Unknown nitrofurantoin [From MACROBID] Allergy (Unknown, Verified 02/13/25 09:35) RASH penicillin V Allergy (Unknown, Verified 02/13/25 09:35) hives Sulfa (Sulfonamide Antibiotics) [SULFA (SULFONAMIDE ANTIBIOTICS)] Allergy (Unknown, Verified 02/13/25 09:35) UNKNOWN sulfamethoxazole [From BACTRIM] Allergy (Unknown, Verified 02/13/25 09:35) RASH trimethoprim [From BACTRIM] Allergy (Unknown, Verified 02/13/25 09:35) RASH Medication List - Last Reconciled 02/13/25 by Jae Pérez MD albuterol sulfate 90 mcg/actuation 2 puffs inhalation Q6H PRN 30 days amitriptyline 10 mg PO DAILY baclofen 10 mg PO BID PRN 15 days cholecalciferol (vitamin D3) (Vitamin D3) 25 mcg PO DAILY clonazepam 1 mg PO DAILY PRN eszopiclone (Lunesta) 3 mg PO BEDTIME ibuprofen 800 mg PO DAILY 30 days ipratropium-albuterol 0.5 mg-3 mg(2.5 mg base)/3 mL 3 mL inhalation Q4-6H PRN lamotrigine 150 mg PO DAILY lisinopril 10 mg PO DAILY 90 days loperamide 2 mg PO Q8H montelukast 10 mg PO BEDTIME 90 days risperidone (Risperdal) 3 mg PO BEDTIME sertraline 100 mg PO DAILY sertraline 50 mg PO QAM sumatriptan succinate 100 mg PO Q2-4H PRN 30 days HPI Comments Details: 44 YO Female with extensive psych history including bipolar disorder, depression, anxiety. Also HTN. She is seen in F/U today for NTMNG. She had thyroid US completed in early 2018 which revealed multiple bilateral thyroid nodules. She did have RMP nodule measuring 1.0 cm with an irregular margin, so FNA was completed. At the time of FNA there was notice of additional nodules which were not measured on the initial US. FNA was completed 12/27/18 of 2 separate R mid pole 1.2 cm nodules. Cytology for both nodules was benign, bethesda category II. She does mention some hoarseness of voice, but denies any other co mpressive symptoms. She had a CT of the neck completed 06/26/2020 which revealed no substernal extension, but multiple bilateral thyroid nodules. Repeat thyroid US was unchanged. She also reports difficulty losing weight. Thyroid US: 03/22/2023 Right Thyroid Lobe: 4.9 x 2.0 x 2.0 cm, volume 10.3 mL. Previously 5.0 x 1.6 x 1.9 cm, volume 7.9 mL. Parenchyma: The gland echotexture is slightly heterogeneous. Thyroid vascularity is normal. Left Thyroid Lobe: 4.9 x 2.1 x 2.1 cm, volume 11.3 mL. Previously 5.6 x 1.5 x 2.1 cm, volume 9.2 mL. Parenchyma: The gland echotexture is slightly heterogeneous Thyroid vascularity is normal. Isthmus: 0.5 cm in maximum AP dimension. Previously 0.5 cm. Estimated total number of nodules greater than or equal to 1 cm: 1. Cancer Program Consultant nodules are described as follows: 1.? Location: Right mid lateral. ?? ? Size: 0.5 x 0.4 x 0.6 cm, volume 0.06 mL. ?? ? Previously: 0.5 x 0.3 x 0.5 cm, volume 0.05 mL. ?? ? Nodule characteristics: ?? ? Composition: Solid/almost completely solid (2). ?? ? Echogenicity: Isoechoic (1). ?? ? Shape: Not taller than wide (0). ?? ? Margins: Ill-defined (0). ?? ? Echogenic Foci: None (0).? ACR TI-RADS total points: 3 Previous: 5 ?? ? ACR TI-RADS category: 3 Previous: 4 ? Significant change in size (>/= 20% in 2 dimensions and minimal increase of 2 mm or 50% or greater increase in volume): ?? ? Change in features: ?? ? Change in ACR TI-RADS risk category: 2.? Location: Right mid. ?? ? Size: 0.8 x 0.6 x 0.8 cm, volume 0.2 mL. ?? ? Previously: Not documented on the previous study. ?? ? Nodule characteristics: ?? ? Composition: Solid (2). ?? ? Echogenicity: Hyperechoic (1). ?? ? Shape: Not taller than wide (0). ?? ? Margins: Ill-defined (0). ?? ? Echogenic Foci: None (0). ? ACR TI-RADS total points: 3 ?? ? ACR TI-RADS category: 3 3.? Location: Right mid. ?? ? Size: 0.7 x 0.5 x 0.6 cm, volume 0.1 mL. ?? ? Previously: Not documented on the previous study. ?? ? Nodule characteristics: ?? ? Composition: Solid (2). ?? ? Echogenicity: Hyperechoic (1). ?? ? Shape: Not taller than wide (0). ?? ? Margins: Ill-defined (0). ?? ? Echogenic Foci: None (0).? ACR TI-RADS total points: 3 ?? ? ACR TI-RADS category: 3 Nodules 2 and 3 were previously measured as 1 nodule and probably not appreciably changed in size. 4.? Location: Left superior. ?? ? Size: 0.8 x 0.5 x 0.8 cm, volume 0.2 mL. ?? ? Previously: New since the previous study. ?? ? Nodule characteristics: ?? ? Composition: Solid (2). ?? ? Echogenicity: Hyperechoic (1). ?? ? Shape: Not taller than wide (0). ?? ? Margins: Ill-defined (0). ?? ? Echogenic Foci: None (0). ? ACR TI-RADS total points: 3 ?? ? ACR TI-RADS category: 3 5.? Location: Left inferior. ?? ? Size: 0.8 x 0.6 x 1.0 cm, volume 0.3 mL. ?? ? Previously: 0.9 x 0.7 x 1.1 cm, volume 0.4 mL. ?? ? Nodule characteristics: ?? ? Composition: Solid/almost completely solid (2). ?? ? Echogenicity: Hyperechoic (1). ?? ? Shape: Not taller than wide (0). ?? ? Margins: Smooth (0). ?? ? Echogenic Foci: None (0). ? ACR TI-RADS total points: 3 Previous: 4 ?? ? ACR TI-RADS category: 3 Previous: 4 ? Significant change in size (>/= 20% in 2 dimensions and minimal increase of 2 mm or 50% or greater increase in volume): ?? ? Change in features: ?? ? Change in ACR TI-RADS risk category: ?? ? NODES: No lymphadenopathy is seen in the tissue surrounding the thyroid gland. Labs: Laboratory Tests 03/22/23 10:15 25-OH Vitamin D Total 17.2 TSH 0.79 Free T4 0.92 c/o horase voice. Some dysphagia. Saw Dr. Jacobo who felt that her symptoms were not related to the thyroid and decided not to operate The patient is a 44-year-old female presenting with concerns primarily related to thyroid nodules. At a prior visit, complaints involving neck symptoms were evaluated by Dr. Jacobo , who concluded that the thyroid was not the cause and advised to leave it alone. During this visit, a slight reduction in nodule size was observed through ultrasound, which was reassuring. The patient's persistent cold intolerance raises concern as it may relate to thyroid dysfunction or ongoing anemia. Anemia has been persistent with inadequate control on iron levels, leading the patient to schedule an oncologist consultation. She has also expressed concern about vitamin D deficiency, with previous slightly low measurements leading to a recommendation of increasing Vitamin D supplementation. - Vitamin D Supplement: Previously at 1000 IU, planned to increase to 2000 IU for vitamin D deficiency. No adverse reactions reported previously. - Iron supplements for anemia: Not detailed in dosage, ongoing management issue. - Nasal sprays (mentioned as ineffective at times) [facility] Medical History (Updated 01/28/25 @ 15:15 by Brayan Damon PA-C) Vitamin D deficiency Multinodular thyroid Surgical History History of tubal ligation History of section Family History Mother Asthma Diabetes High cholesterol CVD (cardiovascular disease) Father Diabetes Asthma High cholesterol CVD (cardiovascular disease) Sister Diabetes Sister Diabetes Maternal Grandmother Diabetes Breast cancer Ovarian cancer Maternal Grandfather Diabetes Maternal Aunt Breast cancer Ovarian cancer Paternal Grandfather No problems noted. 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 There are no palpable thyroid nodules Assessment & Plan Assessment & Plan (1) Multinodular thyroid: Code(s): E04.2 - Nontoxic multinodular goiter Category: Medical Plan: This is a 43-year-old female with a history of multinodular goiter FNA was completed 12/27/18 of 2 separate R mid pole 1.2 cm nodules. Cytology for both nodules was benign, bethesda category II. She appears to be clinically and biochemically euthyroid. Repeat thyroid ultrasound report is pending. Plan is to check TSH and free T4. Will have patient follow up with Dr. Sanford an exercise physiologist on practice with expertise in thyroid ultrasound 1. Thyroid Nodules The presence of thyroid nodules was noted with slight reduction in size, indicating favorable progress. Continued conservative management with planned follow-up with Dr. Sanford for further ultrasound evaluation is scheduled in 3?4 months. 3. Vitamin D Deficiency The patient has been advised to increase Vitamin D supplementation from 1000 IU to 2000 IU for improved levels. Follow-up labs are scheduled for approximately two months. The patient had an opportunity to ask questions regarding treatment plan. The patient expressed understanding and agreement with the above treatment plan. During the conversation, I described the current findings regarding thyroid nodules, noting the slight reduction in size as reassuring, recommending continued conservative management rather than intervention. Evaluation by Dr. Sanford was discussed for diagnostic ultrasounds to maintain close monitoring. Regarding Vitamin D deficiency, I recommended increasing dosage, explaining that re-evaluation would be necessary in two months to confirm effectiveness. - Take 2000 IU of vitamin D daily as directed. - Follow up with an oncologist for anemia management. - Schedule and attend a follow-up with Dr. Sanford, an exercise physiologist, in 3 to 4 months for thyroid assessment. - Re-check blood work in two months for vitamin D levels. - Continue current iron supplementation as discussed with your primary physician. - Patient was informed and verbally consented to the use of an ambient scribe for clinic note documentation during this visit. Plan see above Orders: Orders Free T4 (Free Thyroxine) 2 Months E04.2 - Nontoxic multinodular goiter Vitamin D 25-OH Total 2 Months E04.2 - Nontoxic multinodular goiter Thyroid Stimulating Hormone 2 Months E04.2 - Nontoxic multinodular goiter Medications: New cholecalciferol (vitamin D3) 50 mcg PO DAILY 30 caps 4RF Discontinued cholecalciferol (vitamin D3) (Vitamin D3) Discontinued Reason: Doctor's Order 25 mcg PO DAILY 90 caps 3RF Coding Level of Care Code Est Pt Level 3 (39468) Diagnoses Multinodular thyroid E04.2
[2025-02-13 09:35] VITALS: BP 110/74; PULSE 52; O2SAT 100; BMI 38.1
== END 2025-02-13 10:06 | disposition home or self-care (01) ==
LOC: HO.ENCR 09:22
PROVIDERS: PCP Physician Assistant; Visit Provider Internal Medicine Endocrinology, Diabetes & Metabolism
DX: E04.2 Nontoxic multinodular goiter (principal)
CPT/HCPCS: 99213

== ENCOUNTER → 2025-02-13 09:21 | Outpatient (BNVA) | payer OTHER, SELFPAY | PROVIDERS: PCP Physician Assistant; Visit Provider Internal Medicine Endocrinology, Diabetes & Metabolism | DX: E04.2 Nontoxic multinodular goiter (principal) | CPT/HCPCS: 99212 ==

== ENCOUNTER → 2025-02-14 10:42 | Outpatient (BNV) | payer OTHER, SELFPAY | PROVIDERS: PCP Physician Assistant; Referring Provider Physician Assistant; Visit Provider Internal Medicine | DX: D64.9 Anemia, unspecified (principal) | CPT/HCPCS: 99204; G2211 ==

== ENCOUNTER 2025-03-07 13:30 | Outpatient (REF) | payer OTHER, SELFPAY | END 2025-03-07 13:31 | disposition home or self-care (01) | LOC: HO.HAP 13:30 | PROVIDERS: Visit Provider Physician Assistant | DX: Z46.1 Encounter for fitting and adjustment of hearing aid (principal); H90.6 Mixed conductive and sensorineural hearing loss, bilateral | CPT/HCPCS: V5266 ==

== ENCOUNTER 2025-03-07 13:39 | Outpatient (REF) | payer OTHER, SELFPAY ==
--- NOTE | ~2025-03-07 | US_ITS ---
EXAMINATION: US PELVIS TRANSABDOMINAL AND TRANSVAGINAL HISTORY: N92.0 - Excessive and frequent menstruation with regular cycle COMPARISON: Comparison is made with the prior examination dated 07/25/2018. TECHNIQUE: Transabdominal and endovaginal real-time 2D palma-scale ultrasound was performed. FINDINGS: Uterus: The uterus is normal in size, measuring 10.2 x 5.0 x 5.3 cm. Myometrium has a normal echotexture. No fibroids are identified. Endometrium: The endometrial stripe measures 8 mm in thickness. There are nabothian cysts in the cervix. Right ovary: The right ovary measures 1.8 x 2.6 x 1.9 cm. The right ovary is normal in size and echotexture. Left ovary: The left ovary measures 2.1 x 1.3 x 2.1 cm. The left ovary is normal in size and echotexture. Pelvic fluid: none. US/US pelvic and transvaginal IMPRESSION: Unremarkable pelvic ultrasound. Electronically signed by: Jae Worthington MD 03/07/2025 02:27 PM EDT
== END 2025-03-07 13:40 | disposition home or self-care (01) ==
LOC: HO.US 13:39
PROVIDERS: PCP Physician Assistant; Visit Provider Physician Assistant
DX: N92.0 Excessive and frequent menstruation with regular cycle (principal); D50.0 Iron deficiency anemia secondary to blood loss (chronic)
CPT/HCPCS: 76830; 76856

== ENCOUNTER → 2025-03-07 13:40 | Outpatient (BNV) | payer OTHER, SELFPAY | PROVIDERS: PCP Physician Assistant; Visit Provider Radiology Diagnostic Radiology | DX: N92.0 Excessive and frequent menstruation with regular cycle (principal) | CPT/HCPCS: 76830; 76856 ==

== ENCOUNTER 2025-04-04 14:01 | Outpatient (REF) | payer OTHER, SELFPAY | END 2025-04-04 14:02 | disposition home or self-care (01) | LOC: HO.SH 14:01 | PROVIDERS: Visit Provider Physician Assistant | DX: Z01.118 Encounter for examination of ears and hearing with other abnormal findings (principal); H90.6 Mixed conductive and sensorineural hearing loss, bilateral | CPT/HCPCS: V5266 ==

== ENCOUNTER 2025-04-16 08:56 | Outpatient (REF) | payer OTHER, SELFPAY ==
[2025-04-16 11:32] LABS: Alanine Aminotransferase 16 U/L (0-31); Alkaline Phosphatase 75 U/L (39-117); Anion Gap 10 (12-20); Aspartate Amino Transferase 17 U/L (5-31); Bilirubin Total 0.5 mg/dL (0.0-1.0); Blood Urea Nitrogen 18 mg/dL (9-16); Calcium 10.3 mg/dL (8.4-10.2); Carbon Dioxide 25 mmol/L (22-29); Chloride 106 mmol/L (96-108); Estimated Glomerular Filt Rate 52; Glucose Fasting 90 mg/dL (60-99); Potassium 4.1 mmol/L (3.3-5.1); Sodium 137 mmol/L (135-145); Total Protein 7.1 g/dL (6.5-8.0)
[2025-04-16 11:42] LABS: Free T4 (Free Thyroxine) 1.16 ng/dL (0.71-1.85); Vitamin D 25-OH Total 34.8 ng/mL (>30)
== END 2025-04-16 08:57 | disposition home or self-care (01) ==
LOC: HO.LAB 08:56
PROVIDERS: PCP Physician Assistant; Visit Provider Internal Medicine Endocrinology, Diabetes & Metabolism
DX: E04.2 Nontoxic multinodular goiter (principal); I10 Essential (primary) hypertension
CPT/HCPCS: 36415; 80053; 82306; 84439; 84443

== ENCOUNTER 2025-04-21 09:05 | Outpatient (REF) | payer OTHER, SELFPAY ==
[2025-04-21 09:53] LABS: Hematocrit 31.3 % (37.0-47.0); Hemoglobin 10.2 g/dl (12.0-16.0); Mean Corpuscular HGB Conc 32.6 g/dl (31.0-35.0); Mean Corpuscular Hemoglobin 28.5 pg (27.0-33.0); Mean Corpuscular Volume 87.4 fL (80.0-98.0); Mean Platelet Volume 10.2 fL (9.4-12.3); Platelet Count 219 X10*3/uL (160-400); Red Blood Count 3.58 X10*6/uL (4.20-5.50); White Blood Count 6.4 X10*3/uL (4.8-10.8)
[2025-04-21 10:01] LABS: Estimated Average Glucose 111 mg/dL; Hemoglobin A1c % 5.5 % (<6.0)
== END 2025-04-21 09:06 | disposition home or self-care (01) ==
LOC: HO.LAB 09:05
PROVIDERS: PCP Physician Assistant; Visit Provider Physician Assistant
DX: R73.09 Other abnormal glucose (principal); D50.0 Iron deficiency anemia secondary to blood loss (chronic)
CPT/HCPCS: 36415; 83036; 85027

== ENCOUNTER 2025-05-08 12:53 | Outpatient (REF) | payer OTHER, SELFPAY | END 2025-05-08 12:54 | disposition home or self-care (01) | LOC: HO.HAP 12:53 | PROVIDERS: Visit Provider Physician Assistant | DX: H90.6 Mixed conductive and sensorineural hearing loss, bilateral (principal) | CPT/HCPCS: V5266 ==

== ENCOUNTER 2025-06-09 11:37 | Outpatient (REF) | payer OTHER, SELFPAY | END 2025-06-09 11:38 | disposition home or self-care (01) | LOC: HO.HAP 11:37 | PROVIDERS: Visit Provider Physician Assistant | DX: Z46.1 Encounter for fitting and adjustment of hearing aid (principal); H90.0 Conductive hearing loss, bilateral | CPT/HCPCS: V5266 ==

== ENCOUNTER 2025-06-16 09:51 | Outpatient (AMB) | payer OTHER, SELFPAY ==
[2025-06-16 09:52] VITALS: BP 122/78; PULSE 60; O2SAT 99; BMI 38.3
--- NOTE | 2025-06-16 09:52 | MHC.OFFVIS ---
Vital Signs 06/16/25 09:52 Height 5 ft 7 in Weight 244 lb 7.882 oz BMI 38.3 BP 122/78 Blood Pressure Location Lt brachial Position Sitting Pulse 60 Pulse Source Pulse Oximeter Pulse Oximetry (%) 99 Oxygen Delivery Method Room Air Intake Visit Reasons: MNG Intake Note: Patient present today for MNG office visit. Precision Filer Hand Required: No Accompanied by: Self / Same As Patient Allergies Penicillins (PENICILLINS) Allergy (Mild, Verified 06/16/25 09:56) HIVES metformin Allergy (Unknown, Verified 06/16/25 09:56) rash methocarbamol (Robaxin) Allergy (Unknown, Verified 06/16/25 09:56) Unknown nitrofurantoin (From MACROBID) Allergy (Unknown, Verified 06/16/25 09:56) RASH penicillin V Allergy (Unknown, Verified 06/16/25 09:56) hives Sulfa (Sulfonamide Antibiotics) (SULFA (SULFONAMIDE ANTIBIOTICS)) Allergy (Unknown, Verified 06/16/25 09:56) UNKNOWN sulfamethoxazole (From BACTRIM) Allergy (Unknown, Verified 06/16/25 09:56) RASH trimethoprim (From BACTRIM) Allergy (Unknown, Verified 06/16/25 09:56) RASH Medication List - Last Reconciled 06/16/25 by Zena Sanford MD albuterol sulfate 90 mcg/actuation 2 puffs inhalation Q6H PRN 30 days amitriptyline 10 mg PO DAILY cholecalciferol (vitamin D3) 50 mcg PO DAILY clonazepam 1 mg PO DAILY PRN eszopiclone (Lunesta) 3 mg PO BEDTIME ferrous sulfate 325 mg PO BID ibuprofen 800 mg PO DAILY PRN ipratropium-albuterol 0.5 mg-3 mg(2.5 mg base)/3 mL 3 mL inhalation Q4-6H PRN lamotrigine 150 mg PO DAILY lisinopril 10 mg PO DAILY 90 days loperamide 2 mg PO Q8H montelukast 10 mg PO BEDTIME 90 days risperidone (Risperdal) 3 mg PO BEDTIME sertraline 100 mg PO DAILY sertraline 50 mg PO QAM sumatriptan succinate 100 mg PO Q2-4H PRN 30 days HPI Comments Details: 44 YO Female with extensive psych history including bipolar disorder, depression, anxiety. Also HTN. She is seen in F/U today for NTMNG. HPI thyroid US completed in early 2018 which revealed multiple bilateral thyroid nodules. She did have RMP nodule measuring 1.0 cm with an irregular margin, so FNA was completed. At the time of FNA there was notice of additional nodules which were not measured on the initial US. FNA was completed 12/27/18 of 2 separate R mid pole 1.2 cm nodules. Cytology for both nodules was benign, bethesda category II. She had a CT of the neck completed 06/26/2020 which revealed no substernal extension, but multiple bilateral thyroid nodules. She does mention some hoarseness of voice, but denies any other compressive symptoms. Neck ultrasound in 2022 showed stable size of the nodules without significant growth. Most recent thyroid ultrasound 03/2024 showed mildly heterogenous normal volume gland containing 1 cm or smaller nodules bilaterally without suspicious characteristics. Was evaluated by Endocrine surgery in December 2024, symptoms of hoarseness thought to be unrelated to thyroid given small size of the nodule with absence of large goiter. No history of thyroid dysfunction, clinically and biochemically euthyroid. Most recent labs from March 2025 showed normal TSH and free T4. Labs: Laboratory Tests 04/16/25 09:50 TSH 1.20 Free T4 1.16 Laboratory Tests US THYROID 04/03/24 CLINICAL INFORMATION: Nontoxic multinodular goiter. COMPARISON: Thyroid ultrasound 03/22/2023 and 04/20/2022. CT soft tissue neck 06/26/2020. TECHNIQUE: Linear transducer grayscale and color Doppler examination with attention to the region of the thyroid. FINDINGS: SIZE: Measurements of the thyroid lobes and nodules are given in sagittal, anteroposterior and transverse dimensions respectively. Right Thyroid Lobe: 5.1 x 2.0 x 2.4 cm, volume 12.9 mL. Previously 4.9 x 2.0 x 2.0 cm, volume 10.3 mL. Parenchyma: The gland echotexture is homogeneous. Thyroid vascularity is normal. Left Thyroid Lobe: 5.2 x 1.6 x 1.8 cm, volume 8.0 mL. Previously 4.9 x 2.1 x 2.1 cm, volume 11.3 mL. Parenchyma: The gland echotexture is homogeneous. Thyroid vascularity is normal. Isthmus: 0.5 cm in maximum AP dimension. Previously 0.5 cm. Estimated total number of nodules greater than or equal to 1 cm: 1. Quality Control Microbiologist nodules are described as follows: 1. Location: Right midpole. Size: 0.8 x 0.5 x 0.7 cm, volume 0.14 mL. Previously: 0.5 x 0.4 x 0.6 cm, volume 0.06 mL. Nodule characteristics: Composition: Solid/almost completely solid (2). Echogenicity: Isoechoic (1). Shape: Not taller than wide (0). Margins: Ill-defined (0). Echogenic Foci: None (0). ACR TI-RADS total points: 3. Previous: 3. ACR TI-RADS category: 3. Previous: 3. Significant change in size (>/= 20% in 2 dimensions and minimal increase of 2 mm or 50% or greater increase in volume): Yes Change in features: No Change in ACR TI-RADS risk category: No 2. Location: Right mid pole. Size: 0.9 x 0.6 x 0.5 cm, volume 0.14 mL. Previously: 0.7 x 0.5 x 0.6 cm, volume 0.11 mL. Nodule characteristics: Composition: Solid/almost completely solid (2). Echogenicity: Hypoechoic (2). Shape: Not taller than wide (0). Margins: Ill-defined (0). Echogenic Foci: None (0). ACR TI-RADS total points: 4. Previous: 3. ACR TI-RADS category: 4. Previous: 3. Significant change in size (>/= 20% in 2 dimensions and minimal increase of 2 mm or 50% or greater increase in volume): Yes Change in features: No Change in ACR TI-RADS risk category: No 3. Location: Right midpole. Size: 1.0 x 0.6 x 0.7 cm, volume 0.21 mL. Previously: 0.8 x 0.6 x 0.8 cm, volume 0.20 mL. Nodule characteristics: Composition: Solid/almost completely solid (2). Echogenicity: Hypoechoic (2). Shape: Not taller than wide (0). Margins: Ill-defined (0). Echogenic Foci: None (0). ACR TI-RADS total points: 4. Previous: 3. ACR TI-RADS category: 4. Previous: 3. Significant change in size (>/= 20% in 2 dimensions and minimal increase of 2 mm or 50% or greater increase in volume): No Change in features: Yes Change in ACR TI-RADS risk category: Yes 4. Location: Left midpole. Size: 0.6 x 0.4 x 0.6 cm, volume 0.07 mL. Previously: 0.8 x 0.5 x 0.8 cm, volume 0.02 mL. Nodule characteristics: Composition: Solid/almost completely solid (2). Echogenicity: Hypoechoic (2). Shape: Not taller than wide (0). Margins: Ill-defined (0). Echogenic Foci: None (0). ACR TI-RADS total points: 4. Previous: 3. ACR TI-RADS category: 4. Previous: 3. Significant change in size (>/= 20% in 2 dimensions and minimal increase of 2 mm or 50% or greater increase in volume): Yes Change in features: Yes Change in ACR TI-RADS risk category: Yes 5. Location: Left lower pole. Size: 0.9 x 0.3 x 0.5 cm, volume 0.07 mL. Previously: 0.8 x 0.6 x 1.0 cm, volume 0.40 mL. Nodule characteristics: Composition: Solid/almost completely solid (2). Echogenicity: Hypoechoic (2). Shape: Not taller than wide (0). Margins: Ill-defined (0). Echogenic Foci: None (0). ACR TI-RADS total points: 4. Previous: 3. ACR TI-RADS category: 4. Previous: 3. Significant change in size (>/= 20% in 2 dimensions and minimal increase of 2 mm or 50% or greater increase in volume): Yes Change in features: Yes Change in ACR TI-RADS risk category: Yes NODES: No lymphadenopathy is seen in the tissue surrounding the thyroid gland. US/US thyroid IMPRESSION: Multiple bilateral thyroid nodules as detailed above, largest 1.0 cm right mid TR4. Recommend follow-up ultrasound in 12 months. Thyroid US: 03/22/2023 Right Thyroid Lobe: 4.9 x 2.0 x 2.0 cm, volume 10.3 mL. Previously 5.0 x 1.6 x 1.9 cm, volume 7.9 mL. Parenchyma: The gland echotexture is slightly heterogeneous. Thyroid vascularity is normal. Left Thyroid Lobe: 4.9 x 2.1 x 2.1 cm, volume 11.3 mL. Previously 5.6 x 1.5 x 2.1 cm, volume 9.2 mL. Parenchyma: The gland echotexture is slightly heterogeneous Thyroid vascularity is normal. Isthmus: 0.5 cm in maximum AP dimension. Previously 0.5 cm. Estimated total number of nodules greater than or equal to 1 cm: 1. Quality Control Microbiologist nodules are described as follows: 1.? Location: Right mid lateral. ?? ? Size: 0.5 x 0.4 x 0.6 cm, volume 0.06 mL. ?? ? Previously: 0.5 x 0.3 x 0.5 cm, volume 0.05 mL. ?? ? Nodule characteristics: ?? ? Composition: Solid/almost completely solid (2). ?? ? Echogenicity: Isoechoic (1). ?? ? Shape: Not taller than wide (0). ?? ? Margins: Ill-defined (0). ?? ? Echogenic Foci: None (0).? ACR TI-RADS total points: 3 Previous: 5 ?? ? ACR TI-RADS category: 3 Previous: 4 ? Significant change in size (>/= 20% in 2 dimensions and minimal increase of 2 mm or 50% or greater increase in volume): ?? ? Change in features: ?? ? Change in ACR TI-RADS risk category: 2.? Location: Right mid. ?? ? Size: 0.8 x 0.6 x 0.8 cm, volume 0.2 mL. ?? ? Previously: Not documented on the previous study. ?? ? Nodule characteristics: ?? ? Composition: Solid (2). ?? ? Echogenicity: Hyperechoic (1). ?? ? Shape: Not taller than wide (0). ?? ? Margins: Ill-defined (0). ?? ? Echogenic Foci: None (0). ? ACR TI-RADS total points: 3 ?? ? ACR TI-RADS category: 3 3.? Location: Right mid. ?? ? Size: 0.7 x 0.5 x 0.6 cm, volume 0.1 mL. ?? ? Previously: Not documented on the previous study. ?? ? Nodule characteristics: ?? ? Composition: Solid (2). ?? ? Echogenicity: Hyperechoic (1). ?? ? Shape: Not taller than wide (0). ?? ? Margins: Ill-defined (0). ?? ? Echogenic Foci: None (0).? ACR TI-RADS total points: 3 ?? ? ACR TI-RADS category: 3 Nodules 2 and 3 were previously measured as 1 nodule and probably not appreciably changed in size. 4.? Location: Left superior. ?? ? Size: 0.8 x 0.5 x 0.8 cm, volume 0.2 mL. ?? ? Previously: New since the previous study. ?? ? Nodule characteristics: ?? ? Composition: Solid (2). ?? ? Echogenicity: Hyperechoic (1). ?? ? Shape: Not taller than wide (0). ?? ? Margins: Ill-defined (0). ?? ? Echogenic Foci: None (0). ? ACR TI-RADS total points: 3 ?? ? ACR TI-RADS category: 3 5.? Location: Left inferior. ?? ? Size: 0.8 x 0.6 x 1.0 cm, volume 0.3 mL. ?? ? Previously: 0.9 x 0.7 x 1.1 cm, volume 0.4 mL. ?? ? Nodule characteristics: ?? ? Composition: Solid/almost completely solid (2). ?? ? Echogenicity: Hyperechoic (1). ?? ? Shape: Not taller than wide (0). ?? ? Margins: Smooth (0). ?? ? Echogenic Foci: None (0). ? ACR TI-RADS total points: 3 Previous: 4 ?? ? ACR TI-RADS category: 3 Previous: 4 ? Significant change in size (>/= 20% in 2 dimensions and minimal increase of 2 mm or 50% or greater increase in volume): ?? ? Change in features: ?? ? Change in ACR TI-RADS risk category: ?? ? NODES: No lymphadenopathy is seen in the tissue surrounding the thyroid gland. [facility] Medical History Vitamin D deficiency Multinodular thyroid Surgical History History of tubal ligation History of section Family History Mother Asthma Diabetes High cholesterol CVD (cardiovascular disease) Father Diabetes Asthma High cholesterol CVD (cardiovascular disease) Sister Diabetes Sister Diabetes Maternal Grandmother Diabetes Breast cancer Ovarian cancer Maternal Grandfather Diabetes Maternal Aunt Breast cancer Ovarian cancer Paternal Grandfather No problems noted. 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 Diagnosed in 2018 she has had FNA of 2 of the right midpole nodules which were benign. Since then she has been followed with surveillance ultrasounds thyroid nodule size was unchanged in 2022 as well as on last ultrasound done in March 2024. She did have some concern about compressive symptoms however after evaluation with the Endocrine surgery in December 2024 it was decided that she does not have a large goiter, and low risk appearing nodules unlikely compressive symptoms are unrelated. Overall she is doing well. At this point she has had a couple of ultrasound showing stability in the size of the nodules, I will plan to repeat a thyroid ultrasound next year. Plan: -ordered thyroid ultrasound to be done in April 2026 prior to follow up in May 2026 -ordered TSH with a reflex free T4 to be done prior to follow up in 1 year Plan See above Orders: Orders TSH reflex Free T4 05/04/26 E04.2 - Nontoxic multinodular goiter US thyroid 05/04/26 E04.2 - Nontoxic multinodular goiter Medications: Refilled cholecalciferol (vitamin D3) 50 mcg PO DAILY 30 caps 0RF Patient Instructions: Do ultrasound of the thyroid in April 2026, someone will call you to schedule this , please make sure this is done a few week prior to your follow up with me in May 2026 Also do thyroid blood work a few days prior to appointment , orders placed Coding Level of Care Code Est Pt Level 3 (85899) Diagnoses Multinodular thyroid E04.2
== END 2025-06-16 10:16 | disposition home or self-care (01) ==
LOC: HO.ENCR 09:51
PROVIDERS: PCP Physician Assistant; Visit Provider Student in an Organized Health Care Education/Training Program
DX: E04.2 Nontoxic multinodular goiter (principal)
CPT/HCPCS: 99213

== ENCOUNTER → 2025-06-16 09:51 | Outpatient (BNVA) | payer OTHER, SELFPAY | PROVIDERS: PCP Physician Assistant; Visit Provider Student in an Organized Health Care Education/Training Program | DX: E04.2 Nontoxic multinodular goiter (principal); I10 Essential (primary) hypertension | CPT/HCPCS: 99212 ==

== ENCOUNTER 2025-06-24 09:30 | Outpatient (RCR) | payer OTHER, SELFPAY ==
[2025-05-27 09:06] VITALS: BP 120/51; PULSE 69; RESP 16; TEMP 36.3; O2SAT 100
[2025-06-03 09:50] VITALS: BP 135/72; PULSE 57; RESP 16; TEMP 36.6; O2SAT 99
[2025-06-03] MEDS: 0.9 % Sodium Chloride Flush 10 ML SYRINGE 5 ML IVFLUSH (10:29)
[2025-06-10 09:21] VITALS: BP 143/81; PULSE 51; RESP 18; TEMP 36.6
[2025-06-17 09:32] VITALS: BP 132/75; PULSE 59; RESP 18; TEMP 37.3; O2SAT 100
[2025-06-24 09:18] VITALS: BP 136/61; PULSE 64; RESP 16; TEMP 36.6; O2SAT 100
== END 2025-06-24 09:46 | disposition home or self-care (01) ==
LOC: HO.INF 09:30
PROVIDERS: PCP Physician Assistant; Visit Provider Internal Medicine
DX: D64.9 Anemia, unspecified (principal)
CPT/HCPCS: 96365; 96374; J1756

== ENCOUNTER 2025-07-11 13:34 | Outpatient (REF) | payer OTHER, SELFPAY | END 2025-07-11 13:35 | disposition home or self-care (01) | LOC: HO.HAP 13:34 | PROVIDERS: Visit Provider Physician Assistant | DX: Z46.1 Encounter for fitting and adjustment of hearing aid (principal); H90.6 Mixed conductive and sensorineural hearing loss, bilateral | CPT/HCPCS: V5266 ==

== ENCOUNTER 2025-08-12 14:34 | Outpatient (REF) | payer OTHER, SELFPAY | END 2025-08-12 14:35 | disposition home or self-care (01) | LOC: HO.HAP 14:34 | PROVIDERS: Visit Provider Physician Assistant | DX: Z46.1 Encounter for fitting and adjustment of hearing aid (principal); H90.3 Sensorineural hearing loss, bilateral | CPT/HCPCS: V5266 ==

== ENCOUNTER 2025-09-08 11:08 | Outpatient (AMB) | payer OTHER, SELFPAY ==
--- NOTE | 2025-09-08 11:31 | A.OFFPC_ITS ---
Vital Signs 09/08/25 11:33 09/08/25 12:23 Height 5 ft 7 in Weight 238 lb BMI 37.3 BP 140/70 H 145/80 H Blood Pressure Location Lt brachial Position Sitting Pulse 59 Pulse Source Pulse Oximeter Temp 97.1 F Temp Source Temporal Artery Scan Pulse Oximetry (%) 98 Oxygen Delivery Method Room Air Intake Visit Reasons: Annual Exam, resched Intake Note: Patient is here today for a physical. Multimedia Services Coordinator Required: No Tableau Developer: Not Required per policy Accompanied by: Self / Same As Patient Allergies Penicillins (PENICILLINS) Allergy (Mild, Verified 09/08/25 11:56) HIVES metformin Allergy (Unknown, Verified 09/08/25 11:56) rash methocarbamol (Robaxin) Allergy (Unknown, Verified 09/08/25 11:56) Unknown nitrofurantoin (From MACROBID) Allergy (Unknown, Verified 09/08/25 11:56) RASH penicillin V Allergy (Unknown, Verified 09/08/25 11:56) hives Sulfa (Sulfonamide Antibiotics) (SULFA (SULFONAMIDE ANTIBIOTICS)) Allergy (Unknown, Verified 09/08/25 11:56) UNKNOWN sulfamethoxazole (From BACTRIM) Allergy (Unknown, Verified 09/08/25 11:56) RASH trimethoprim (From BACTRIM) Allergy (Unknown, Verified 09/08/25 11:56) RASH Medication List - Last Reconciled 09/08/25 by Brayan Damon PA-C albuterol sulfate 90 mcg/actuation 2 puffs inhalation Q6H PRN 30 days amitriptyline 10 mg PO DAILY cholecalciferol (vitamin D3) (Vitamin D3) 50 mcg PO DAILY clonazepam 1 mg PO DAILY PRN eszopiclone (Lunesta) 3 mg PO BEDTIME ferrous sulfate 325 mg PO BID ibuprofen 800 mg PO DAILY PRN ipratropium-albuterol 0.5 mg-3 mg(2.5 mg base)/3 mL 3 mL inhalation Q4-6H PRN lamotrigine 150 mg PO DAILY lisinopril 10 mg PO DAILY 90 days loperamide 2 mg PO Q8H montelukast 10 mg PO BEDTIME 90 days risperidone (Risperdal) 3 mg PO BEDTIME sertraline 100 mg PO DAILY sertraline 50 mg PO QAM sumatriptan succinate 100 mg PO Q2-4H PRN 30 days Tobacco use date assessed: 09/08/25 Dental Screening Dental Screen Date: 09/08/25 Did you have a dental visit in the last 12 months?: Yes Did you have a dental problem in the last 6 months where you did not have access to dental care?: No Was dental information given to patient?: Patient has dentist HPI Annual Exam, resched HPI Details Patient is a 45 year-old female here today annual physical Patient has a past medical history significant for hypertension, obesity, anxiety, bipolar disorder, major depressive disorder, stable asthma, thyroid nodule. Iron-deficiency anemia: She has a history of heavy menstrual bleeding and was seen by a precision millwright; her periods have since become irregular and have stopped recently. Associated with this, she developed iron and vitamin D deficiency, which have not improved despite taking medication and receiving an iron infusion in the past. She continues to experience symptoms of weakness, dizziness, constant fatigue, and sleepiness. Recent labs showed a ferritin level in the 150s and a B12 level of 333. .. Class 2 Obesity: Unfortunately gained weight since last office visit, has found it very difficult to lose weight. She admits that her anxiety and depression is the reason she eats. She is interested medication to help kick start weight loss. .. 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 CT of the auditory canals did show otosclerosis. No cerumen impaction on physical exam today. She has an upcoming appointment with her ENT specialist to assess her hearing aids ? .. ? Vit D Def/ thyroid nodules: Started on vitamin-D from her director business travel. Most recent vitamin-D level is slightly low Patient reports she recently had a thyroid ultrasound showing a nodule was benign.? Has 1 year follow-up for ultrasound. .. .. Migraines:? Patient reports her migraines are well controlled with the use of sumatriptan 100 mg as needed. ? .. ? Hypertension: Patient's blood pressure elevated today in office, she continues on lisinopril 10. Will increase her lisinopril to 20 mg for better blood pressure control. ? . ? Asthma:? She is followed by pulmonology,?she reports her asthma has been fairly well controlled.? Has been transition to Symbicort by her materials recycler. ? Bipolar disorder: Continues to be followed by Psychiatry, She is on multiple medications including clonazepam, lamotrigine (for mood stabilization), sertraline 150 mg, and risperdal, and takes them daily. She expresses concern that the medications may be contributing to her fatigue and reports feeling spaced out. Her psychiatrist previously tried lowering her medication doses without any improvement in her symptoms. Mammo: Has upcoming appointment for mammogram in September of 2025 TELEPHONE WORKER: Is followed by Connie TELEPHONE WORKER -will call and make a follow-up appointment. Vaccine:UTD with COVID Vaccine and PCV, up-to-date with tetanus vaccine, NEeds FLu vaccine Laboratory Tests 04/01/22 03/11/24 04/03/24 10:45 14:59 10:41 RBC 4.10 L Hgb 12.0 Random Glucose 122 H Hemoglobin A1c % Ferritin Cholesterol 146 Urine Microalbumin 20.0 04/03/24 06/19/24 05/16/25 10:45 08:50 09:55 RBC 3.75 L 3.39 L Hgb 11.4 L 10.5 L Random Glucose 91 Hemoglobin A1c % 5.6 Ferritin 23 Cholesterol 141 Urine Microalbumin 08/11/25 09:48 RBC 3.52 L Hgb 10.9 L Random Glucose Hemoglobin A1c % Ferritin 117 Cholesterol Urine Microalbumin [facility] [place] Medical History Vitamin D deficiency Multinodular thyroid Surgical History History of tubal ligation History of section Family History Mother Asthma Diabetes High cholesterol CVD (cardiovascular disease) Father Diabetes Asthma High cholesterol CVD (cardiovascular disease) Sister Diabetes Sister Diabetes Maternal Grandmother Diabetes Breast cancer Ovarian cancer Maternal Grandfather Diabetes Maternal Aunt Breast cancer Ovarian cancer Paternal Grandfather No problems noted. 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 1. Little interest or pleasure in doing things: several days 2. Feeling down, depressed, or hopeless: not at all 3. Trouble falling or staying asleep, or sleeping too much: nearly every day 4. Feeling tired or having little energy: nearly every day 5. Poor appetite or overeating: more than half the days 6. Feeling bad about yourself - or that you are a failure or have let yourself or your family down: several days 7. Trouble concentrating on things, such as reading the newspaper or watching television: several days 8. Moving or speaking so slowly that other people could have noticed. Or the opposite - being so fidgety or restless that you have been moving around a lot more than usual: several days 9. Thoughts that you would be better off or of hurting yourself in some way: not at all Total score: 12 Depression Screening Interpretation: Positive Depression Screening Follow-up: Existing condition and In treatment Depression Screening Done: Yes 11039 - PHQ-9 Billing: Yes Source: Developed by Drs. Jae Posadas, Jailene Singh, Jeramy Ro and colleagues, with an educational jeff from [employer]. Thrive Questionnaire Date Thrive assessed: 09/01/25 I am a: Patient What is your living situation today?: I have a steady place to live Within the past 12 months, did the food you bought not last and you didn't have the money to get more?: Sometimes True Within the past 12 months, did you worry whether your food would run out before you got money to buy more?: Never true Do you have trouble paying for medicines?: No Do you have trouble getting transportation to medical appointments?: Yes Do you have trouble paying your heating and electricity bill?: No Do you have trouble taking care of your child, family member or friend?: No Do you have trouble with day-to-day activities such as bathing, preparing meals, shopping, managing finances, etc.?: No Are you currently unemployed and looking for a job?: No Are you interested in more education?: No Please select the resources that you would like help with: None Currently or been in a relationship where the following occur: I choose not to answer THRIVE Score: 2 AUDIT C Alcohol Use Questionnaire (AUDIT-C) 1. How often do you have a drink containing alcohol?: Never 2. How many drinks containing alcohol do you have on a typical day when you are drinking?: 1 or 2 3. How often do you have six or more drinks on one occasion?: Never Total Score: 0 SHERRI-7 AMB Questionnaire SHERRI-7 Date SHERRI - 7 assessed: 12/12/24 Feeling nervous, anxious, or on edge: 1 = Several days Not being able to stop or control worryin = Several days Worrying too much about different things: 1 = Several days Trouble relaxin = Several days Being so restless that it is hard to sit still: 2 = More than half the days Becoming easily annoyed or irritable: 1 = Several days Feeling afraid as if something awful might happen: 1 = Several days Total SHERRI-7 score (0-4 normal; 5-9 mild; 10-14 moderate; 15-21 severe): 8 Source: Developed by Drs. Jae Posadas, Jailene Singh, Jeramy Ro and colleagues, with an educational jeff from [employer]. SHERRI-7 Assessment Billing SHERRI-7 Assessment Tool: SHERRI-7 Assessment 43481 Physical exam (Primary Care) Vital Signs: Last Vital Signs Temp 97.1 F 09/08/25 11:33 Pulse 59 09/08/25 11:33 BP 145/80 H 09/08/25 12:23 Pulse Ox 98 09/08/25 11:33 Oxygen Delivery Method Room Air 09/08/25 11:33 BMI result Body Mass Index 37.3 Tobacco/Smoking Status: Tobacco use Status Tobacco use date assessed 09/08/25 09/08/25 11:38 Patient Tobacco Use Status Never used Tobacco 09/08/25 11:38 e-Cigarette/Vaping Use Never Used 09/08/25 11:38 PHQ-9: PHQ-9 Score PHQ-9: Total score 12 09/08/25 11:58 Depression Screening Interpretation: Positive Depression Screening Follow-up: Existing condition and In treatment Thrive Assessment: Date of Thrive Assessment Date Thrive assessed 09/01/25 09/08/25 11:38 Currently or been in a relationship where the following occur: I choose not to answer Office Procedures Flu Questionnaire Does the patient have a severe egg allergy?: No Does the patient have severe life threatening allergies?: No Does the patient have a fever or illness today?: No Has the patient ever had Guillain-[place] Syndrome?: No Has the patient ever had any past reaction to a flu shot?: No Immunizations Fluarix [id number] (PF) 45 mcg (15 mcg x 3)/0.5 mL IM syringe Performing Provider: Brayan Damon PA-C [facility] Administered by: Yusra Dia CMA on 09/08/25 12:28 Dose Route Admin Location Dispensed Lot Number Expiration Date NDC Clinic Scheduler 0.5 mL IM Left Deltoid 0.5 mL [id number] 04/21/26 [id number] JAZIO VIS Given Date VIS Provided VIS Publication Date 09/08/25 Single Vaccine 24 Eligibility Eligibility Date Funding Source Not [facility] Eligible 09/08/25 Private Coding Level of Care Code Est Pt Prev Care 40-64y(40800) Diagnoses Annual physical exam Z00.00 ANA (obstructive sleep apnea) G47.33 Colon cancer screening Z12.11 Tendinopathy of right shoulder M67.911 Primary hypertension I10 Hypertension type: primary hypertension Class 2 obesity E66.812 Additional Codes PHQ-9 - 22140 - PHQ-9 Billing: Yes ([id number]) SHERRI-7 Assessment Billing - SHERRI-7 Assessment Tool: SHERRI-7 Assessment 61191 ([id number]) Assessment & Plan Assessment & Plan (1) Annual physical exam: Code(s): Z00.00 - Encounter for general adult medical examination without abnormal findings Category: Medical Plan: as per HPI (2) ANA (obstructive sleep apnea): Code(s): G47.33 - Obstructive sleep apnea (adult) (pediatric) Category: Medical Plan: Patient is showing signs symptoms of a possible obstructive sleep apnea. Blood pressure remains elevated and she continues with daytime somnolence even with better iron. (3) Colon cancer screening: Code(s): Z12.11 - Encounter for screening for malignant neoplasm of colon Category: Medical Plan: Patient willing to do colon cancer screening with a Cologuard (4) Tendinopathy of right shoulder: Code(s): M67.911 - Unspecified disorder of synovium and tendon, right shoulder Category: Medical Plan: Patient continues to have right shoulder pain since her fall in November of 2024. She is interested in doing physical therapy for her right shoulder (5) HTN (hypertension): Code(s): I10 - Essential (primary) hypertension Category: Medical Qualifiers: Hypertension type: primary hypertension Qualified Code(s): I10 - Essential (primary) hypertension Plan: Patient's blood pressure elevated today in office, will increase her lisinopril to 20 mg for better blood pressure control Will continue her current dose of antihypertensive medication with goal blood pressure to remain below 140/90 (6) Class 2 obesity: Code(s): E66.812 - Obesity, class 2 Category: Medical Plan: Patient does understand her BMI is over 35 and will continue trying to work on being more physically active and adapting to better eating habits to reduce her weight. Orders: Orders RT home sleep study Today G47.33 - Obstructive sleep apnea (adult) (pediatric) Vitamin B12 and Folate Today E53.8 - Deficiency of other specified B group vitamins, N92.0 - Excessive and frequent menstruation with regular cycle Vitamin D 25-OH Total Today N92.0 - Excessive and frequent menstruation with regular cycle Complete Blood Count no Diff Today N92.0 - Excessive and frequent menstruation with regular cycle PT Evaluation and Treatment Today M67.911 - Unspecified disorder of synovium and tendon, right shoulder Ferritin Today D50.0 - Iron deficiency anemia secondary to blood loss (chronic) TSH reflex Free T4 Today N91.2 - Amenorrhea, unspecified Comprehensive Ware. Panel Fast Today I10 - Essential (primary) hypertension Influenza 2852-1247 Immunization Today Z23 - Encounter for immunization Referrals CARDIAC REHABILITATION PROGRAM DIRECTOR Referral N92.0 - Excessive and frequent menstruation with regular cycle, Z12.4 - Encounter for screening for malignant neoplasm of cervix Cologuard Test Z12.11 - Encounter for screening for malignant neoplasm of colon Medications: New meloxicam 15 mg PO DAILY 30 tabs 2RF 30 days M51.36 - Other intervertebral disc degeneration, lumbar region lisinopril 20 mg PO DAILY 90 tabs 1RF 90 days I10 - Essential (primary) hypertension Refilled loperamide 2 mg PO Q8H 90 caps 3RF G47.33 - Obstructive sleep apnea (adult) (pediatric) amitriptyline 10 mg PO DAILY 90 tabs 2RF H90.3 - Sensorineural hearing loss, bilateral albuterol sulfate 90 mcg/actuation 2 puffs inhalation Q6H PRN 6.7 grams 3RF shortness of breath or wheezing 30 days Discontinued ibuprofen Discontinued Reason: Doctor's Order 800 mg PO DAILY PRN 30 tabs 2RF Pain, Mild lisinopril Discontinued Reason: Doctor's Order 10 mg PO DAILY 90 days 90 tabs 1RF I10 - Essential (primary) hypertension Patient Instructions: Goal: Blood pressure to be below 140/90 Barriers: Adherence to physical activity and healthy eating habits
[2025-09-08 11:33] VITALS: BP 140/70; PULSE 59; TEMP 36.2; O2SAT 98; BMI 37.3
[2025-09-08 12:23] VITALS: BP 145/80
== END 2025-09-08 12:36 | disposition home or self-care (01) ==
LOC: HO.HMCH 11:09
PROVIDERS: PCP Physician Assistant; Visit Provider Physician Assistant
DX: Z00.00 Encounter for general adult medical examination without abnormal findings (principal); G47.33 Obstructive sleep apnea (adult) (pediatric); E66.812 Obesity, class 2; Z68.37 Body mass index [BMI] 37.0-37.9, adult; Z12.11 Encounter for screening for malignant neoplasm of colon; M67.911 Unspecified disorder of synovium and tendon, right shoulder; I10 Essential (primary) hypertension; Z23 Encounter for immunization

== ENCOUNTER → 2025-09-08 11:08 | Outpatient (BNVA) | payer OTHER, SELFPAY | PROVIDERS: PCP Physician Assistant; Visit Provider Physician Assistant | DX: Z00.00 Encounter for general adult medical examination without abnormal findings (principal); I10 Essential (primary) hypertension; E66.812 Obesity, class 2; H80.91 Unspecified otosclerosis, right ear; E55.9 Vitamin D deficiency, unspecified; G43.909 Migraine, unspecified, not intractable, without status migrainosus; F31.9 Bipolar disorder, unspecified; G47.33 Obstructive sleep apnea (adult) (pediatric); M67.911 Unspecified disorder of synovium and tendon, right shoulder; E53.8 Deficiency of other specified B group vitamins; N92.0 Excessive and frequent menstruation with regular cycle; D50.0 Iron deficiency anemia secondary to blood loss (chronic); N91.2 Amenorrhea, unspecified; H90.3 Sensorineural hearing loss, bilateral; Z23 Encounter for immunization; Z68.37 Body mass index [BMI] 37.0-37.9, adult | CPT/HCPCS: 90471; 90656; 96127; 99396 ==

== ENCOUNTER 2025-09-12 13:33 | Outpatient (REF) | payer OTHER, SELFPAY | END 2025-09-12 13:34 | disposition home or self-care (01) | LOC: HO.HAP 13:33 | PROVIDERS: Visit Provider Physician Assistant | DX: Z46.1 Encounter for fitting and adjustment of hearing aid (principal) | CPT/HCPCS: V5266 ==

== ENCOUNTER 2025-09-22 11:10 | Outpatient (REF) | payer OTHER, SELFPAY ==
--- NOTE | ~2025-09-22 | MM_ITS ---
EXAMINATION: MM SCREENING DIGITAL BREAST TOMOSYNTHESIS, BILATERAL CLINICAL INFORMATION: Screening. Asymptomatic. COMPARISON: Mammography: Comparison is made with available priors TECHNIQUE: Digital breast mammography with tomosynthesis is performed in both the craniocaudal and mediolateral oblique views along with computer-aided detection (CAD). FINDINGS: There are scattered areas of fibroglandular density. There are no significant masses, abnormal calcifications, or other abnormalities. MM/MM tomosynthesis screening BI IMPRESSION: No mammographic evidence of malignancy. ASSESSMENT: BI-RADS Category 1: Negative RECOMMENDATION: Routine annual mammography screening. 1 year F/U This examination should not preclude the clinical evaluation of a suspicious palpable abnormality. This patient's information was entered into a reminder system with a target due date for their next mammogram. Electronically signed by: Evelyn Pablo DO 09/22/2025 12:24 PM ALEJANDRA
== END 2025-09-22 11:11 | disposition home or self-care (01) ==
LOC: HO.MAMMO 11:10
PROVIDERS: PCP Physician Assistant; Visit Provider Physician Assistant
DX: Z12.31 Encounter for screening mammogram for malignant neoplasm of breast (principal)
CPT/HCPCS: 77063; 77067

== ENCOUNTER → 2025-09-22 11:30 | Outpatient (BNV) | payer OTHER, SELFPAY | PROVIDERS: PCP Physician Assistant; Visit Provider Internal Medicine | DX: Z12.31 Encounter for screening mammogram for malignant neoplasm of breast (principal) | CPT/HCPCS: 77063; 77067 ==

== ENCOUNTER 2025-10-01 14:16 | Outpatient (REF) | payer OTHER, SELFPAY | END 2025-10-01 14:17 | disposition home or self-care (01) | LOC: HO.HAP 14:16 | PROVIDERS: Visit Provider Physician Assistant | DX: Z46.1 Encounter for fitting and adjustment of hearing aid (principal); H90.6 Mixed conductive and sensorineural hearing loss, bilateral | CPT/HCPCS: V5266; V5299 ==

== ENCOUNTER 2025-10-13 13:36 | Outpatient (REF) | payer OTHER, SELFPAY | END 2025-10-13 13:37 | disposition home or self-care (01) | LOC: HO.HAP 13:36 | PROVIDERS: Visit Provider Physician Assistant | DX: Z46.1 Encounter for fitting and adjustment of hearing aid (principal); H90.6 Mixed conductive and sensorineural hearing loss, bilateral | CPT/HCPCS: V5266 ==